=== PATIENT | female | born 1985 | race Caucasian/White ===

== ENCOUNTER 2021-05-21 04:38 | Emergency (ER) | payer OTHER, SELFPAY ==
[2021-05-21 04:48] VITALS: BP 109/73; PULSE 78; RESP 16; TEMP 36.4; O2SAT 98; BMI 29.0
--- NOTE | 2021-05-21 05:25 | ED.URI ---
HPI - URI/Sore Throat General Chief Complaint: General Medical Stated Complaint: Sore throat Time Seen by Provider: 05/21/21 04:55 Source: patient Mode of arrival: ambulatory Limitations: no limitations History of Present Illness MD elicited complaint: cough, sore throat and other (body aches) Onset (ago): day(s) (2) Consistency: constant Severity: moderate Description of mucous: clear Able to tolerate fluids by mouth: Yes Exacerbating factors: swallowing and other (movements) Relieving factors: nothing Associated symptoms: chills, myalgias, sore throat and cough Treatments prior to arrival: cold medicine Related Data Previous Rx's Medication Instructions Recorded amoxicillin 500 mg capsule 500 mg PO BID #14 cap 05/21/21 cyclobenzaprine 10 mg tablet 10 mg PO TID PRN #14 tab 05/21/21 ibuprofen 600 mg tablet 600 mg PO Q6H PRN #30 tab 05/21/21 Allergies Allergy/AdvReac Type Severity Reaction Status Date / Time No Known Allergies Allergy Verified 05/21/21 06:05 Review of Systems Review of Systems: Constitutional : no Fever, no Chills, positive fatigue, positive Malaise ENT/Mouth : positive sore throat, no runny nose Eyes: No Discharge Cardiovascular : No Chest Pain, No SOB Respiratory : pos Cough, No Sputum Gastrointestinal : No Nausea, No Vomiting, No Diarrhea Genitourinary : No Dysuria, No Urinary Frequency Musculoskeletal : positive Myalgia Skin : No rash Neuro : No Headache [facility] Past Medical History Medical History (Updated 05/21/21 @ 06:05 by Atiya Nichole DO) No known health problems Social History Social History Advance Directives: No Advance Directives Information Provided: No Patient : No Physical Exam Vital Signs: Vital Signs: Last Vital Signs Temp 97.6 F 05/21/21 04:48 Pulse 78 05/21/21 04:48 Resp 16 05/21/21 04:48 BP 109/73 05/21/21 04:48 Pulse Ox 98 05/21/21 04:48 Body Mass Index 29.0 Appearance: Alert. Oriented X3. No acute distress. Eyes: Pupils equal, round and reactive to light. ENT: Pharynx moderate generalized erythema scant patches Neck: no meningeal signs has R sided trapezius spasm CVS: Normal heart rate and rhythm. Pulses normal. Respiratory: No respiratory distress. Breath sounds normal. Abdomen: Soft and non-tender. Skin: Skin warm and dry. Normal skin color. Normal skin turgor. Extremities: No lower extremity edema. No calf ttp Neuro: Oriented X 3. No motor deficit. No sensory deficit. RUE and RLE NV intact - 5/5 strength throughout Course Course Course Narrative: negative covid and strep will treat as tonsillitis and instruct repeat COVID test in 2 days MDM - URI/Sore Throat MDM Narrative Medical decision making narrative: 35 yo female with sore throat, body aches affecting predominantly the right side of her body, chills - she is not vaccinated at this time will need COVID swab/strep swab - dispo per results and findings. Not toxic, stable VS - no resp distress overall looks well Lab Data Labs: Lab Results 05/21/21 05/21/21 Range/Units 05:36 05:36 COVID-19 (DAYNA) Negative (Negative) COVID-19 Clin Com See Note S. pyogenes GrpA HANNAH Negative (Negative) Discharge Plan Discharge Clinical Impression: Acute infective tonsillitis Qualifiers: Pharyngitis/tonsillitis etiology: unspecified etiology Qualified Code(s): J03.90 - Acute tonsillitis, unspecified Patient Disposition: Home, Self-Care Instructions: Tonsillitis (ED) Additional Instructions: return to ED for any worsening symptoms or concerns STREP AND COVID NEGATIVE REPEAT COVID TEST IN 2 DAYS Prescriptions: New amoxicillin 500 mg capsule 500 mg PO BID Qty: 14 RF: 0 cyclobenzaprine 10 mg tablet 10 mg PO TID PRN (Reason: muscle spasm) Qty: 14 RF: 0 ibuprofen 600 mg tablet 600 mg PO Q6H PRN (Reason: pain) Qty: 30 RF: 0
[2021-05-21 05:50] LABS: IDNOW Serial# 08D9AD1C; Strep A Nucleic Acid Negative (Negative)
[2021-05-21 05:56] LABS: COVID-19 Test Negative (Negative)
== END 2021-05-21 06:42 | disposition home or self-care (01) ==
PROVIDERS: Emergency Provider Emergency Medicine
DX: J03.90 Acute tonsillitis, unspecified (principal); R05.9 Cough, unspecified; M79.10 Myalgia, unspecified site; Z20.822 Contact with and (suspected) exposure to COVID-19
CPT/HCPCS: 36415; 87635; 87651; 99283

== ENCOUNTER 2022-03-24 19:29 | Emergency (ER) | payer OTHER, SELFPAY ==
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
[2022-03-24 21:21] VITALS: BP 126/69; PULSE 71; RESP 18; O2SAT 99; BMI 31.8
[2022-03-24] MEDS: Ketorolac Tromethamine 60 MG/2 ML VIAL IM (22:31)
--- NOTE | 2022-03-24 22:35 | PC.NURSE ---
Pt a&o, no sob or chest pain. Medicated per Sep.
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
== END 2022-03-24 23:50 | disposition home or self-care (01) ==
PROVIDERS: Emergency Provider Emergency Medicine
DX: S83.92XA Sprain of unspecified site of left knee, initial encounter (principal); V28.0XXA Motorcycle driver injured in noncollision transport accident in nontraffic accident, initial encounter; Y93.89 Activity, other specified; Y92.414 Local residential or business street as the place of occurrence of the external cause; Y99.9 Unspecified external cause status
CPT/HCPCS: 73564; 96372; 99283; 99284; J1885

== ENCOUNTER 2022-05-25 21:40 | Emergency (ER) | payer OTHER, SELFPAY ==
[2022-05-25 22:17] VITALS: BP 121/73; PULSE 69; RESP 15; TEMP 36.7; O2SAT 100; BMI 30.1
== END 2022-05-26 00:54 | disposition left against medical advice (07) ==
PROVIDERS: Emergency Provider Emergency Medicine
DX: M62.838 Other muscle spasm (principal)
CPT/HCPCS: 99281

== ENCOUNTER 2022-09-08 00:19 | Emergency (ER) | payer OTHER, SELFPAY ==
[2022-09-08 00:54] VITALS: BP 107/68; PULSE 76; RESP 18; TEMP 36.6; O2SAT 99; BMI 30.9
[2022-09-08 00:57] VITALS: BP 107/68; PULSE 76; RESP 18; TEMP 36.6; O2SAT 99
[2022-09-08 01:41] LABS: MANUAL DIFF FLAG NO
[2022-09-08 01:43] LABS: Basophils Percent Auto 0.2 % (0-2); Eosinophils Absolute Auto 0.1 X10*3/uL (0.0-0.4); Eosinophils Percent Auto 1.8 % (0-4); Hematocrit 31.2 % (37.0-47.0); Hemoglobin 10.7 g/dl (12.0-16.0); Imm Gran Abs Auto 0.01 X10*3/uL (0.00-0.03); Imm Gran Pct Auto 0.2 % (0.0-0.4); Lymphocytes Percent Auto 30.7 % (20-40); Mean Corpuscular HGB Conc 34.3 g/dl (31.0-35.0); Mean Corpuscular Hemoglobin 30.2 pg (27.0-33.0); Mean Corpuscular Volume 88.1 fL (80.0-98.0); Mean Platelet Volume 10.1 fL (9.4-12.3); Monocytes Absolute Auto 0.8 X10*3/uL (0.1-1.2); Monocytes Percent Auto 11.5 % (2-11); Neutrophils Absolute Auto 3.7 x10*3/uL (2.0-8.3); Neutrophils Percent Auto 55.6 % (45-73); Platelet Count 283 X10*3/uL (160-400); Red Blood Count 3.54 X10*6/uL (4.20-5.50); Red Cell Distribution Width 12.7 % (11.0-16.0); White Blood Count 6.6 X10*3/uL (4.8-10.8)
[2022-09-08 01:49] LABS: Appearance Urine Cloudy; Color Urine Yellow; Glucose Urine UA Negative (Negative); Leukocyte Esterase Urine Small (1+) (Negative); Nitrite Urine Negative (Negative); Specific Gravity - Urine >= 1.030 (1.005-1.025); UMIC TRIGGER UACC YES; Urine Blood Negative (Negative); Urine Ketones Negative (Negative); Urine Protein Trace mg/dL (Neg-Trace)
[2022-09-08 01:51] LABS: UPreg QC Valid YES; Urine Pregnancy NEGATIVE (NEGATIVE)
[2022-09-08 01:54] LABS: Bacteria Urine 4+ (None Seen); Hyaline Casts Urine 0-2 /LPF (0-2); RBC Urine 0-2 /HPF (0-2); UACC Culture Trigger YES; WBC Urine 21-50 /HPF (0-5)
[2022-09-08 02:09] LABS: Alanine Aminotransferase 11 U/L (0-31); Albumin Level 3.4 g/dL (3.5-5.0); Alkaline Phosphatase 73 U/L (39-117); Anion Gap 9 (12-20); Aspartate Amino Transferase 18 U/L (5-31); Bilirubin Total 0.3 mg/dL (0.0-1.0); Blood Urea Nitrogen 13 mg/dL (9-16); Calcium 8.3 mg/dL (8.4-10.2); Carbon Dioxide 26 mmol/L (22-29); Chloride 108 mmol/L (96-108); Creatinine Clr Calc Pharmacy 104.2; Estimated Glomerular Filt Rate > 60; Glucose Random 93 mg/dL (60-115); Potassium 4.3 mmol/L (3.3-5.1); Sodium 139 mmol/L (135-145)
--- NOTE | 2022-09-08 02:22 | ED.ABDPAIN ---
HPI - Abdominal Pain General Chief Complaint: Abdominal Pain Stated Complaint: abd pain Time Seen by Provider: 09/08/22 00:56 Source: patient Mode of arrival: ambulatory History of Present Illness HPI narrative: 36-year-old female who presents with right upper quadrant abdominal discomfort and states that this is been often on occurring and she denies any prior imaging studies and endorses evaluations of both [facility] as well as [facility] previously. She states they just give her pain medication and discharged her. She denies any associated fever, chills, nausea, vomiting and states that she has continued to pass flatus and have bowel movements. She denies any urinary pain/burning/frequency. Related Data Previous Rx's Medication Instructions Recorded amoxicillin 500 mg capsule 500 mg PO BID #14 caps 05/21/21 cyclobenzaprine 10 mg tablet 10 mg PO TID PRN muscle spasm #14 05/21/21 tabs ibuprofen 600 mg tablet 600 mg PO Q6H PRN pain #30 tabs 05/21/21 cyclobenzaprine 10 mg tablet 10 mg PO TID PRN muscle spasm #14 03/24/22 tabs ibuprofen 600 mg tablet 600 mg PO Q6H PRN pain #20 tabs 03/24/22 cefdinir 300 mg capsule 300 mg PO BID 7 days #14 caps 09/08/22 Allergies Allergy/AdvReac Type Severity Reaction Status Date / Time No Known Allergies Allergy Verified 05/21/21 06:05 Review of Systems Review of Systems Pertinent positives and negatives as stated in HPI PMFSH Past Medical History Source: nursing notes reviewed Medical History No known health problems Social History Social History Smoked in Last 30 Days: No Use of substances other than those prescribed or required for medical reasons: No Advance Directives: No Advance Directives Information Provided: Yes Patient : No Physical Exam ED Vital Signs: Vital Signs - 24 hr 09/08/22 00:54 09/08/22 00:57 Temperature 97.9 F 97.9 F Pulse Rate 76 76 Respiratory Rate 18 18 Blood Pressure 107/68 107/68 Pulse Oximetry 99 99 Oxygen Delivery Method Room Air Room Air BMI result Body Mass Index 30.9 VITAL SIGNS: Reviewed. GENERAL: Well developed, well nourished, in no acute distress. HEAD: Normocephalic/atraumatic EYES: PERRLA, EOMI LUNGS: Normal breath sounds. No adventitious sounds or accessory muscle use. SpO2<99> CARDIOVASCULAR: Regular rate and rhythm without noted murmurs ABDOMEN: Soft, minimal right upper quadrant discomfort, Aldrich's negative, non-distended with bowel sounds, CVA tenderness MUSCULOSKELETAL: No tenderness, deformities, or effusions noted on gross inspection. EXTREMITIES: No cyanosis, clubbing or edema. SKIN: Inspection of the skin reveals no rashes, NEUROLOGIC: Alert and oriented x 4. Strength and sensation to light touch were grossly intact x 4. Medical Decision Making Medical Decision Making [facility] Narrative: 36-year-old female with history and clinical presentation and on review of all investigations my interpretation is that this patient has a pyelonephritis, there is no evidence to further support a cholecystitis, pancreatitis. Patient received initial antibiotics here. She is otherwise discharged home in stable condition Differential Diagnosis Differential Diagnoses: The differential diagnosis associated with the presentation includes Please see the discussion above Lab Data [facility] Lab Attestation statement: I reviewed the patient's lab results. Please see the discussion above 09/08/22 01:35 09/08/22 01:35 Labs: Lab Results 09/08/22 09/08/22 09/08/22 Range/Units 01:35 01:35 01:41 WBC 6.6 (4.8-10.8) X10*3/uL RBC 3.54 L (4.20-5.50) X10*6/uL Hgb 10.7 L (12.0-16.0) g/dl Hct 31.2 L (37.0-47.0) % MCV 88.1 (80.0-98.0) fL MCH 30.2 (27.0-33.0) pg MCHC 34.3 (31.0-35.0) g/dl RDW 12.7 (11.0-16.0) % Plt Count 283 (160-400) X10*3/uL MPV 10.1 (9.4-12.3) fL Immature Gran % (Auto) 0.2 (0.0-0.4) % Neut % (Auto) 55.6 (45-73) % Lymph % (Auto) 30.7 (20-40) % Labette % (Auto) 11.5 H (2-11) % Eos % (Auto) 1.8 (0-4) % Baso % (Auto) 0.2 (0-2) % Lymph # (Auto) 2.0 (1.2-4.9) X10*3/uL Labette # (Auto) 0.8 (0.1-1.2) X10*3/uL Eos # (Auto) 0.1 (0.0-0.4) X10*3/uL Baso # (Auto) 0.0 (0.0-0.2) X10*3/uL Abs Immat Gran (auto) 0.01 (0.00-0.03) X10*3/uL Absolute Neuts (auto) 3.7 (2.0-8.3) x10*3/uL Absolute Nucleated RBC 0.000 (0.0-0.012) X10*3/uL Nucleated RBC % (auto) 0.0 (0.0-0.2) /100WBC Sodium 139 (135-145) mmol/L Potassium 4.3 (3.3-5.1) mmol/L Chloride 108 (96-108) mmol/L Carbon Dioxide 26 (22-29) mmol/L Anion Gap 9 L (12-20) BUN 13 (9-16) mg/dL Creatinine 0.73 (0.5-1.4) mg/dL Estim Creat Clear Calc 104.2 Estimated GFR > 60 Random Glucose 93 (60-115) mg/dL Calcium 8.3 L (8.4-10.2) mg/dL Total Bilirubin 0.3 (0.0-1.0) mg/dL AST 18 (5-31) U/L ALT 11 (0-31) U/L Alkaline Phosphatase 73 (39-117) U/L Total Protein 6.0 L (6.5-8.0) g/dL Albumin 3.4 L (3.5-5.0) g/dL Urine Color Yellow Urine Appearance Cloudy Urine pH 5.0 (5.0-9.0) Ur Specific Kelly >= 1.030 H (1.005-1.025) Urine Protein Trace (Neg-Trace) mg/dL Urine Glucose (UA) Negative (Negative) mg/dL Urine Ketones Negative (Negative) mg/dL Urine Blood Negative (Negative) Urine Nitrite Negative (Negative) Ur Leukocyte Esterase Small (1+) H (Negative) Urine RBC 0-2 (0-2) /HPF Urine WBC 21-50 H (0-5) /HPF Ur Squamous Epith Cells 6-10 (0-2) /HPF Urine Bacteria 4+ (None Seen) Hyaline Casts 0-2 (0-2) /LPF Urine Test (NEGATIVE) 09/08/22 Range/Units 01:41 WBC (4.8-10.8) X10*3/uL RBC (4.20-5.50) X10*6/uL Hgb (12.0-16.0) g/dl Hct (37.0-47.0) % MCV (80.0-98.0) fL MCH (27.0-33.0) pg MCHC (31.0-35.0) g/dl RDW (11.0-16.0) % Plt Count (160-400) X10*3/uL MPV (9.4-12.3) fL Immature Gran % (Auto) (0.0-0.4) % Neut % (Auto) (45-73) % Lymph % (Auto) (20-40) % Labette % (Auto) (2-11) % Eos % (Auto) (0-4) % Baso % (Auto) (0-2) % Lymph # (Auto) (1.2-4.9) X10*3/uL Labette # (Auto) (0.1-1.2) X10*3/uL Eos # (Auto) (0.0-0.4) X10*3/uL Baso # (Auto) (0.0-0.2) X10*3/uL Abs Immat Gran (auto) (0.00-0.03) X10*3/uL Absolute Neuts (auto) (2.0-8.3) x10*3/uL Absolute Nucleated RBC (0.0-0.012) X10*3/uL Nucleated RBC % (auto) (0.0-0.2) /100WBC Sodium (135-145) mmol/L Potassium (3.3-5.1) mmol/L Chloride (96-108) mmol/L Carbon Dioxide (22-29) mmol/L Anion Gap (12-20) BUN (9-16) mg/dL Creatinine (0.5-1.4) mg/dL Estim Creat Clear Calc Estimated GFR Random Glucose (60-115) mg/dL Calcium (8.4-10.2) mg/dL Total Bilirubin (0.0-1.0) mg/dL AST (5-31) U/L ALT (0-31) U/L Alkaline Phosphatase (39-117) U/L Total Protein (6.5-8.0) g/dL Albumin (3.5-5.0) g/dL Urine Color Urine Appearance Urine pH (5.0-9.0) Ur Specific Kelly (1.005-1.025) Urine Protein (Neg-Trace) mg/dL Urine Glucose (UA) (Negative) mg/dL Urine Ketones (Negative) mg/dL Urine Blood (Negative) Urine Nitrite (Negative) Ur Leukocyte Esterase (Negative) Urine RBC (0-2) /HPF Urine WBC (0-5) /HPF Ur Squamous Epith Cells (0-2) /HPF Urine Bacteria (None Seen) Hyaline Casts (0-2) /LPF Urine Test NEGATIVE (NEGATIVE) Discharge Plan Discharge Clinical Impression: Pyelonephritis Patient Disposition: Home, Self-Care Instructions: Kidney Infection (ED) Additional Instructions: 1. Complete the entire course of antibiotics. Please increase amount of water that you drink and utilize ishi-[id number] Tylenol/ibuprofen as needed for pain control. 2. Follow-up with your primary care provider by calling the office in the morning and setting up an appointment for re-evaluation further outpatient management. Return to the ER for worsening symptoms. Prescriptions: New cefdinir 300 mg capsule 300 mg PO BID 7 Days Qty: 14 0RF No Action amoxicillin 500 mg capsule 500 mg PO BID Qty: 14 0RF cyclobenzaprine 10 mg tablet 10 mg PO TID PRN (Reason: muscle spasm) Qty: 14 0RF ibuprofen 600 mg tablet 600 mg PO Q6H PRN (Reason: pain) Qty: 30 0RF cyclobenzaprine 10 mg tablet 10 mg PO TID PRN (Reason: muscle spasm) Qty: 14 0RF ibuprofen 600 mg tablet 600 mg PO Q6H PRN (Reason: pain) Qty: 20 0RF
[2022-09-08] MEDS: Amoxicillin/Potassium Clav 875 MG TABLET PO (02:50)
[2022-09-08] MEDS: Acetaminophen 325 MG TABLET 975 MG PO (02:50)
[2022-09-08] MEDS: Ibuprofen 400 MG TABLET PO (02:50)
== END 2022-09-08 02:53 | disposition home or self-care (01) ==
PROVIDERS: Emergency Provider Student in an Organized Health Care Education/Training Program
DX: N12 Tubulo-interstitial nephritis, not specified as acute or chronic (principal); B96.20 Unspecified Escherichia coli [E. coli] as the cause of diseases classified elsewhere; R10.11 Right upper quadrant pain; Z79.899 Other long term (current) drug therapy
CPT/HCPCS: 36415; 80053; 81001; 81025; 85025; 87086; 87088; 87186; 99283; 99284

== ENCOUNTER 2023-01-21 21:29 | Emergency (ER) | payer OTHER, SELFPAY ==
[2023-01-21 21:55] VITALS: BP 127/64; PULSE 72; RESP 18; TEMP 36.9; O2SAT 98; BMI 37.6
[2023-01-21 22:26] LABS: MANUAL DIFF FLAG NO
[2023-01-21 22:29] LABS: Basophils Percent Auto 0.3 % (0-2); Eosinophils Absolute Auto 0.1 X10*3/uL (0.0-0.4); Eosinophils Percent Auto 1.2 % (0-4); Hematocrit 34.4 % (37.0-47.0); Hemoglobin 11.4 g/dl (12.0-16.0); Imm Gran Abs Auto 0.01 X10*3/uL (0.00-0.03); Imm Gran Pct Auto 0.1 % (0.0-0.4); Lymphocytes Absolute Auto 2.4 X10*3/uL (1.2-4.9); Lymphocytes Percent Auto 27.6 % (20-40); Mean Corpuscular HGB Conc 33.1 g/dl (31.0-35.0); Mean Corpuscular Hemoglobin 29.4 pg (27.0-33.0); Mean Corpuscular Volume 88.7 fL (80.0-98.0); Mean Platelet Volume 10.6 fL (9.4-12.3); Monocytes Absolute Auto 0.5 X10*3/uL (0.1-1.2); Monocytes Percent Auto 6.2 % (2-11); Neutrophils Absolute Auto 5.6 x10*3/uL (2.0-8.3); Neutrophils Percent Auto 64.6 % (45-73); Platelet Count 283 X10*3/uL (160-400); Red Blood Count 3.88 X10*6/uL (4.20-5.50); Red Cell Distribution Width 12.5 % (11.0-16.0); White Blood Count 8.7 X10*3/uL (4.8-10.8)
[2023-01-21 22:31] LABS: Appearance Urine Clear; Color Urine Yellow; Glucose Urine UA Negative (Negative); Leukocyte Esterase Urine Negative (Negative); Nitrite Urine Negative (Negative); PH 5.5 (5.0-9.0); Specific Gravity - Urine >= 1.030 (1.005-1.025); UPreg QC Valid YES; Urine Blood Negative (Negative); Urine Ketones Negative (Negative); Urine Pregnancy NEGATIVE (NEGATIVE); Urine Protein Negative (Neg-Trace)
[2023-01-21 22:47] LABS: Alanine Aminotransferase 13 U/L (0-31); Albumin Level 3.7 g/dL (3.5-5.0); Alkaline Phosphatase 81 U/L (39-117); Anion Gap 9 (12-20); Aspartate Amino Transferase 15 U/L (5-31); Bilirubin Direct 0.1 mg/dL (0.0-0.5); Bilirubin Total 0.3 mg/dL (0.0-1.0); Blood Urea Nitrogen 16 mg/dL (9-16); Calcium 8.7 mg/dL (8.4-10.2); Carbon Dioxide 25 mmol/L (22-29); Chloride 108 mmol/L (96-108); Creatinine Clr Calc Pharmacy 111.3; Estimated Glomerular Filt Rate > 60; Glucose Random 112 mg/dL (60-115); Lipase 11 U/L (8-78); Potassium 3.8 mmol/L (3.3-5.1); Sodium 138 mmol/L (135-145); Total Protein 6.9 g/dL (6.5-8.0)
== END 2023-01-22 00:58 | disposition left against medical advice (07) ==
LOC: HO.ED 01-22 00:42
PROVIDERS: Emergency Provider Emergency Medicine
DX: R10.2 Pelvic and perineal pain (principal); Z79.899 Other long term (current) drug therapy
CPT/HCPCS: 36415; 80048; 80076; 81003; 81025; 83690; 85025; 99282; 99283

== ENCOUNTER → 2023-04-30 13:10 | Outpatient (BNVA) | payer OTHER, SELFPAY | PROVIDERS: Visit Provider Physician Assistant Surgical ==

== ENCOUNTER 2023-07-11 01:29 | Emergency (ER) | payer OTHER, SELFPAY ==
[2023-07-11 01:30] VITALS: BP 134/81; PULSE 95; RESP 18; TEMP 36.7; O2SAT 98; BMI 35.4
--- NOTE | 2023-07-11 01:42 | MHC.EDTECH ---
Patient came in to triage area,labs were obtained and sent to lab. Attempted to get a urine,patient was unable to give sample at this itme.
[2023-07-11 01:46] LABS: MANUAL DIFF FLAG NO
[2023-07-11 01:47] LABS: Basophils Percent Auto 0.2 % (0-2); Eosinophils Absolute Auto 0.1 X10*3/uL (0.0-0.4); Eosinophils Percent Auto 0.7 % (0-4); Hematocrit 35.8 % (37.0-47.0); Hemoglobin 12.2 g/dl (12.0-16.0); Imm Gran Abs Auto 0.03 X10*3/uL (0.00-0.03); Imm Gran Pct Auto 0.4 % (0.0-0.4); Lymphocytes Absolute Auto 2.7 X10*3/uL (1.2-4.9); Lymphocytes Percent Auto 32.3 % (20-40); Mean Corpuscular HGB Conc 34.1 g/dl (31.0-35.0); Mean Corpuscular Hemoglobin 29.4 pg (27.0-33.0); Mean Corpuscular Volume 86.3 fL (80.0-98.0); Monocytes Absolute Auto 0.5 X10*3/uL (0.1-1.2); Monocytes Percent Auto 6.3 % (2-11); Neutrophils Percent Auto 60.1 % (45-73); Platelet Count 312 X10*3/uL (160-400); Red Blood Count 4.15 X10*6/uL (4.20-5.50); White Blood Count 8.3 X10*3/uL (4.8-10.8)
[2023-07-11 02:03] LABS: Alanine Aminotransferase 43 U/L (0-31); Albumin Level 4.2 g/dL (3.5-5.0); Alkaline Phosphatase 92 U/L (39-117); Anion Gap 12 (12-20); Aspartate Amino Transferase 107 U/L (5-31); Bilirubin Total 0.3 mg/dL (0.0-1.0); Blood Urea Nitrogen 10 mg/dL (9-16); Calcium 9.7 mg/dL (8.4-10.2); Carbon Dioxide 27 mmol/L (22-29); Chloride 104 mmol/L (96-108); Creatinine Clr Calc Pharmacy 106.3; Estimated Glomerular Filt Rate > 60; Glucose Random 95 mg/dL (60-115); Potassium 3.4 mmol/L (3.3-5.1); Sodium 140 mmol/L (135-145); Total Protein 7.8 g/dL (6.5-8.0)
== END 2023-07-11 03:10 | disposition left against medical advice (07) ==
PROVIDERS: Emergency Provider Emergency Medicine
DX: R10.9 Unspecified abdominal pain (principal); Z79.899 Other long term (current) drug therapy
CPT/HCPCS: 36415; 80053; 85025; 99281; 99283

== ENCOUNTER 2025-03-15 09:48 | Outpatient (AMB) | payer OTHER, SELFPAY ==
--- OUTSIDE RECORDS SUMMARY | 2025-03-15 09:51 | XMS_ITS | Clinical Summary ---
Author Organization [facility] Address [address] [address] Phone Care Team Providers Care Hvac Designer Name Role Phone Unavailable Primary Care Provider Unavailabl e Immunizations Immunization Administration Dates Next Due Hepatitis B Adult 09/13/2024,08/12/2011,06/17/20 11 MMR 09/13/2024 Tdap 02/29/2016 Social History Tobacco Use Types Packs/Day Years Used Date Smoking Tobacco: Never Assessed Education Answer Date Recorded Are you interested in more education? Not on benito e 09/09/2024 Are you concerned about learning? Not on file 09/09/2024 No 09/09/2024 No 09/09/2024 Digital Access Answer Date Recorded No 09/09/2024 No 09/09/2024 Reliable internet access at home? Not on file 09/09/2024 Device with a working camera? Not on file Comments Unknown Sex and Gender Information Value Date Recorded Sex Assigned at Not on file Legal Sex Female 10:40 AM EST Gender Identity Not on file Sexual Orientation Not on file Plan of Treatment Health Maintenance Due Date Last Done Comments DEPRESSION SCREENING 1995 SMOKING Hx and SMOKELESS TOB ACCO SCREENING 12/18/1996 HEPATITIS C SCREENING 12/18/2001 HIV ONE-TIME SCREENING (18-6 5 YEARS) 12/18/2001 PAP SMEAR 12/18/2004 MAMMOGRAM 2023 COVID-19 VACCINE (2023-2 5 season) 2024 Adult Td,Tdap Booster 02/28/2026 02/29/2016 HEPATITIS A VACCINES Aged Out No long er eligible based on patient's age to complete this topic HIB VACCINES Aged Out No longer eligi ble based on patient's age to complete this topic MENINGOCOCCAL VACCINES (ACWY) Aged Out No longer eligible based on patient's age to complete this topic MENINGOCOCCAL VACCINES (B) Aged Out N o longer eligible based on patient's age to complete this topic PNEUMOCOCCAL VACCINES (0-49 years) Aged Out No longer eligible based on patient's age to complete this topic Medical Devices Not on file Additional Source Comments The information contained in this document represents components of the legal health record. It is not the complete legal health record.[facility]
--- OUTSIDE RECORDS SUMMARY | 2025-03-15 09:52 | XMS_ITS | Patient Health Record ---
Author Organization [facility] Address [address] [id number] Support Name Relationship Address Phone Katarina Rodriguez Guarantor Unknown [phone] Allergies No Known Allergies Reason For Referral No Information Medications Medication SIG (Take, Route, Frequency, Duration) Notes Start Date End Date Status Levonorgestrel 1.5 MG Tablet as directed Orally Not-Takin g/PRN Social History Sex Assigned At : Social History Observation Description Sex Assigned At Female Social History HIV Risk Assessment Social Info Question Answer Notes Additional Questions Is an HIV Risk Assessment being c onducted? Yes Have you been tested for HIV before? Yes Do you have an unlicensed body piercing or tattoo? Yes Reproductive Life Plan: Social Info Question Answer Notes Reproductive Life Plan: Do you want to have children? Yes How long would you like to wait until you/your partner becomes ? 1 - 5 years How sure are you that you will be able to use your control method without any problems? Very sure Human Trafficking: Social Info Question Answer Notes Human Trafficking Experienced: No Sexual History: Social Info Question Answer Notes Sexual History: Sexual History Reviewed: Partner s, Practices, Protection/Past STIs, Prevention of Currently sexually active? Yes Sexually active with: Men Number of male partners 1 Your sexual activities include: oral intercourse, vaginal intercourse Do you use condoms? No Date of last unprotected intercourse: 09/18/2023 Number of partners in past 3 months: 2 Number of partners in past year: 2 What is the client's primary method to prevent at the end of their visit? Withdrawal Does your partner(s) currently have any STIs? No Counseling Provided: Social Info Question Answer Notes Counseling Provided Please indicate the length of time, in minutes, that counseling was provided. 6 Counseling Was Provided By: elisabeth Drugs/Alcohol: Social Info Question Answer Notes Drug/Alcohol Use Do you or have you used drugs? No Do you or have you used alcohol? Yes, currently socially Food Access: Social Info Question Answer Notes Food Access The Client's current access to food is Secure Food Access Relationships: Social Info Question Answer Notes Relationships Has the client exper ienced any of the following: Client has never experienced harmful relationships Housing Social Info Question Answer Notes Housing The client's current living situation is: stable housing Tobacco Use: Social Info Question Answer Notes Tobacco Use: Do you/have you used tobacco? No Plan Of Treatment No Information Insurance Providers Payer Name Payer Address Payer Phone Subscriber Number Group Number Insured Name Patient Relationship to Insured Coverage Start Date Coverage End Date [place] [address] [place] [id number] Katarina Rodriguez Self - patient is the insured Medications Administered Medication Instructions Date of Administration Dosage Notes Depo 150mg 04/11/2022 Medical (General) History Surgical History Surgery Date(Month/Year) gastric sleeve 2020 Hospitalization History Reason Date(Month/Year) childbirth
--- OUTSIDE RECORDS SUMMARY | 2025-03-15 09:52 | XMS_ITS | Clinical Summary ---
Author Organization [facility] Address [address] [place] [address] Phone Care Team Providers Care Car Rental Deliverer Name Role Phone Rosi Coelho MD Primary Care Pr ovider Allergies No known active allergies Medications ferrous sulfate 325 mg (65 mg elemental iron) tabletIndication s:Iron deficiency anemia, unspecified iron deficiency anemia type Take 1 tablet (325 mg total) by mouth 2 (two) times a day before meals. 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 Will update CBC and iron studies Orders: CBC and differential; Future Iron and TIBC; Future Ferritin; Future Hemoglobin electrophoresis; Future Morbid obesity with BMI of 4 0.0-44.9, adult (CMS/HCC V24, CMS/HCC V28) 12/12/2024 Assessment & Plan (12/12/2024 1:33 PM EDT): She is interested in weight loss medication. Counseled on the possible side effects of the medication. She will find out what type of thyroid cancer her paternal aunt had. 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 Labs drawn today at [facility] Assessment & Plan (12/12/2024 1:33 PM EDT): Continue levothyroxine 25 mcg daily. Pending repeat TSH Orders: Thyroid stimulating hormone with reflex to free t4 and free t3; Future Assessment & Plan (08/26/2024 8:01 AM EST): Unclear if she received levothyroxine/what dose she received. Will update TSH and thyroid peroxidase. Further recommendations pending results Orders: Thyroid stimulating hormone with reflex to free t4 and free t3; Future Thyroid peroxidase antibody; Future Resolved Problems Problem Noted Date Diagnosed Date Resolved Date GBS (group B Streptococcus c arrier), +RV culture, currently 06/06/2024 09/09/2024 Overview (06/06/2024): No Known allergies Rx PCN in la AMA (advanced maternal age) multigravida 35+ 09/09/2024 Overview (06/06/2024): ASA 162 mg daily at 12w through delivery Referral for NIPT if desired Detailed US 3rd trimester growth US if maternal age 40 or greater Weekly NST at 36 weeks Offer delivery at 39 weeks if maternal age 40 or greater Anemia, antepartum, third trimester 06/06/2024 12/12/2024 Overview (06/06/2024): Lab Results Component Value Date HGB 9.6 02/25/2024 HGB 12.4 10/22/2023 02/25/2024 start iron bid Elevated glucose tolerance test 06/06/2024 09/09/2024 Overview (06/06/2024): Preg @38w5d, one hr gtt 144 Assessment & Plan (08/26/2024 8:01 AM EST): Noted during . Will check A1c and lipid panel Orders: Lipid panel with reflex to direct LDL; Future Hemoglobin A1c; Future Maternal obesity, antepartum 06/06/2024 09/09/2024 Overview (06/06/2024): BMI 37.76 - hx gastric sleeve 2019. Pt will call surgeon prior to completing early 1 hr gtt HgbA1C and 1 hour GTT at initial labs ASA 162mg at 12 weeks until delivery Detailed anatomy ultrasound Repeat GTT 24-28 weeks if early is normal Pre-preg BMI 35-39.9: NST weekly at 37 weeks Growth US at 32 and 36 weeks for BMI >40 BMI of 50 by 28wks transfer to [facility] DVT prophylaxis- Lovenox if CS and BMI >35 Delivery by section at 37-39 weeks of gestation due to labor 05/21/2024 05/21/2024 Delivery by section at 37-39 weeks of gestation due to labor 05/21/2024 09/09/2024 Assessment & Plan (05/21/2024 8:39 AM EST): S/p P C/S for FTD Doing well Meeting postop milestones OK to D/C home today Advanced maternal age in multigravida 05/18/2024 05/18/2024 Elevated glucose tolerance test 05/10/2024 05/21/2024 Overview (05/18/2024): Preg @ 38w5d, one hr gtt 144 Anemia, antepartum, third trimester 04/17/2024 05/21/2024 GBS (group B Streptococcus c arrier), +RV culture, currently 04/17/2024 05/21/2024 GBS (group B Streptococcus c arrier), +RV culture, currently 04/16/2024 05/18/2024 Overview (05/18/2024): No Known Allergies Rx PCN in la Anemia, antepartum, third trimester 02/25/2024 05/18/2024 Overview (05/18/2024): Lab Results Component Value Date HGB 9.6 02/25/2024 HGB 12.4 10/22/2023 02/25/2024 start iron bid Last Assessment & Plan: Cont iron bid and repeat h/h, late 3rd trimester E. coli UTI 10/24/2023 09/09/2024 E. coli UTI 10/24/2023 05/18/2024 Overview (05/18/2024): Repeat UC 02/25/2024 ____ persistnet UTI, cont abx prophylaxis Last Assessment & Plan: Completed abx, Repeat UC today AMA (advanced maternal age) multigravida 35+ 05/21/2024 Overview (04/17/2024): ASA 162 mg daily at 12w through delivery Referral for NIPT if desired Detailed US 3rd trimester growth US if maternal age 40 or greater Weekly NST at 36 weeks Offer delivery at 39 weeks if maternal age 40 or greater History of delivery, currently 10/22/2023 09/09/2024 Overview (04/17/2024): 2001 pt was given terbutaline x3 for labor. She had PPROM at 36w1d . MFM consult:11-11-23 at nuchal u/s Screening for risk of with vaginal ultrasounds to assess cervical length beginning at 16 weeks through 24 weeks if cervix shortens less than 2.5cm patient is candidate for cerclage and vaginal progesterone Hx of preeclampsia, prior pr egnancy, currently 10/22/2023 09/09/2024 Overview (04/17/2024): 2004 pt was induced for preeclampsia 36w5d Pt also has a hx of chronic htn which resolved after gastric sleeve MFM recommendation NSTs are recommended at 32 weeks if she requires antihypertensive medication. Delivery is recommended at 39 weeks for chronic hypertension or sooner if clinically indicated. Serial growth scans are recommended for this and likely for low growth restriction. Maternal obesity, antepartum 10/22/2023 05/21/2024 Overview (04/17/2024): BMI 37.76 - hx gastric sleeve 2020. Pt will call surgeon prior to completing early 1 hr gtt HgbA1C and 1 hour GTT at initial labs ASA 162mg at 12 weeks until delivery Detailed anatomy ultrasound Repeat GTT 24-28 weeks if early is normal Pre-preg BMI 35-39.9: NST weekly at 37 weeks Pre-preg BMI >40: NST weekly at 34 weeks Pre-preg BMI >45: NST weekly at 32 weeks Growth US at 32 and 36 weeks for BMI >40 BMI of 50 by 28wks transfer to [facility] DVT prophylaxis- Lovenox if CS and BMI >35 Supervision of high-risk 10/22/2023 09/09/2024 Overview (04/17/2024): 1. [facility] site: [address]) 2. Delivery site: [facility] 3. Mobile Mommas: 4. Dating criteria: 1st trimester ultrasound only 5. Blood type: Lab Results Component Value Date BLDTYPE O POSITIVE 10/22/2023 6. Genetic screening: Date: Result: Low risk female; Horizon screen negative' AFP screen negative 6. GBS: Date: 7. FOB name: Singh Blackwood [facility] [birth year], 8. Plans A. Epidural or other pain management - B. Labor support identified - C. Tdap - Date:, Flu - Date: D. Breast or Bottle feed: E. Baby's name - F. Circumcision - 9. Hospital Course: Hx of preeclampsia, prior pr egnancy, currently 10/22/2023 05/18/2024 Overview (05/18/2024): 2004 pt was induced for preeclampsia 36w5d Pt also has a hx of chronic htn which resolved after gastric sleeve MFM recommendation NSTs are recommended at 32 weeks if she requires antihypertensive medication. Delivery is recommended at 39 weeks for chronic hypertension or sooner if clinically indicated. Serial growth scans are recommended for this and likely for low growth restriction. Last Assessment & Plan: Normotensive, growth is adequate @ 72%tile on 03/29 Maternal obesity, antepartum 10/22/2023 05/18/2024 Overview (05/18/2024): BMI 37.76 - hx gastric sleeve 2019. Pt will call surgeon prior to completing early 1 hr gtt HgbA1C and 1 hour GTT at initial labs ASA 162mg at 12 weeks until delivery Detailed anatomy ultrasound Repeat GTT 24-28 weeks if early is normal Pre-preg BMI 35-39.9: NST weekly at 37 weeks Growth US at 32 and 36 weeks for BMI >40 BMI of 50 by 28wks transfer to [facility] DVT prophylaxis- Lovenox if CS and BMI >35 Supervision of high-risk 10/22/2023 05/18/2024 Overview (05/18/2024): 1. [facility] site: [address]) 2. Delivery site: [facility] 3. Mobile Mommas: 4. Dating criteria: 1st trimester ultrasound only 5. Blood type: Lab Results Component Value Date BLDTYPE O POSITIVE 10/22/2023 6. Genetic screening: Date: Result: Low risk female; Horizon screen negative' AFP screen negative 6. GBS: Date: 7. FOB name: Singh Blackwood [facility] [birth year], 8. Plans A. Epidural or other pain management - B. Labor support identified - C. Tdap - Date:, 02/25/2024 Flu - Date: D. Breast or Bottle feed: E. Baby's name - F. Circumcision - 9. Hospital Course: Hypothyroid 02/27/2015 05/18/2024 Overview (05/18/2024): Pt noncompliant with adult medicine and mgmt of thyroid. Labs drawn today at [facility] Lab Results Component Value Date TSH 6.03 02/25/2024 TSH 2.97 10/22/2023 TSH 12.26 04/21/2019 04/20/2024 Referral to endocrine. Make sure to determine if ALWAYS hypo or if was hyperthyroid and then hypothyroid from treatment- this will determine if we should check TRab and refer to Endo and MFM TRAb during the first trimester if elevated recheck at 18 to 22 and again at 30 to 34 weeks fetus needs monitoring by MFM with Q4 week growth as long as TRab elevated Initial Labs: TSH with reflex Two approaches for pre- meds: 1) TSH at diagnosis of and increase dose of levothyroxine if TSH >2.5 check TSH 4 weeks later 2) Double dose of levothyroxine two days per week, continue baseline dose other days TSH 4-6 weeks later, keep TSH< 2.5 Q trimester TSH with reflex once stable on meds Do not treat subclinical hypothyroid Do not test for thyroid disease in hyperemesis unless other overt signs of hyperthyroid exist Growth US at 32 weeks Return to pre- dose of levothyroxine while inpatient and provide 1 mo Rx with plan for follow with PCP Last Assessment & Plan: Consult with endocrine, start 50 mcg daily, she is archana for endocrine appt in 04/2024 Encounters Date Type Department Care Team Description 02/13/2025 1:17 PM EDT - 02/13/2025 11:59 PM EDT Hospital Encounter [facility] [address] [place] [phone] Anderson Edmonds MD Iron deficiency anemia due to chronic blood loss (Primary Dx) Discharge Disposition: Home or Self Care 02/01/2025 1:00 PM EDT - 02/01/2025 11:59 PM EDT Hospital Encounter [facility] [address] [place] [phone] Anderson Edmonds MD Iron deficiency anemia due to chronic blood loss (Primary Dx) Discharge Disposition: Home or Self Care 01/19/2025 3:30 PM EDT Office Visit [facility] Hematology Oncology [address] [place] [phone] Jillian Patiño PA Iron deficiency anemia due to chronic blood loss (Primary Dx); S/P gastric sleeve procedure; Menorrhagia with irregular cycle 12/16/2024 Telephone Adult Medicine [address] [phone] Rosi Coelho MD from Last 3 Months Immunizations Name Administration Dates Next Due Hepatitis B (Dijzdxc-L-Qkunz , Recombivax HB-Adult) 19yo and older 08/12/2011,06/17/2011 Influenza Quadravalent, MDCK , 0.5ml, preservative free (Flucelvax) 6mo and older 03/25/2018 Influenza trivalent, 0.5mL, preservative free (Fluarix; FluLaval; Fluzone) ages 6mo and older (Afluria) 3 years and older 04/14/2024 Influenza trivalent, with pr eservative (Fluzone; Afluria) 6mo and older 04/27/2012 Influenza, Unspecified 04/14/2024 Pneumococcal polysaccharide 23 valent (Pneumovax 23) 2yo and older 02/29/2016 Tdap Tetanus diptheria acell ular pertussis (Boostrix; Adacel) 7yo and older 02/25/2024,02/29/2016 Surgical History Surgery Date Site/Laterality Comments CHOLECYSTECTOMY 2002 PROCEDURE: HISTORICAL CHOLECYSTECTOMY OTHER SURGICAL HISTORY 01/2020 PROCEDURE: HISTORY OTHER; COMMENT: gastric sleeve SECTION, LOW TRANSVERSE Medical History Medical History Date Comments Hypothyroid 02/27/2015 DX:Hypothyroid CTS (carpal tunnel syndrome) 03/08/2015 DX: CTS (carpal tunnel syndrome); COMMENT: bilateral Morbid obesity (CMS/HCC V24, CMS/HCC V28) 10/22/2023 DX:Morbid obesity (HCC); COM MENT: bmi 37.76 Lab test positive for detect ion of COVID-19 virus 02/28/2021 DX:Lab test positive for det ection of COVID-19 virus; COMMENT: [facility] 02/21/21 Type 2 diabetes mellitus wit h neurological manifestations, uncontrolled 02/27/2015 DX:Type 2 diabetes mellitus with neurological manifestations, uncontrolled H. pylori infection 04/21/2019 DX:H. pylori infection HTN (hypertension), benign 02/27/2015 DX:HT N (hypertension), benign Hyperlipidemia with target L DL less than 100 02/27/2015 DX:Hyperlipidemia with targe t LDL less than 100; COMMENT: IMO update CTS (carpal tunnel syndrome) 03/08/2015 DX: CTS (carpal tunnel syndrome); COMMENT: bilateral AMA (advanced maternal age) multigravida 35+ 10/22/2023 ASA 162 mg daily at 12w thro ugh delivery Referral for NIPT if desired Detailed US 3rd trimester growth US if maternal age 40 or greater Weekly NST at 36 weeks Offer delivery at 39 weeks if maternal age 40 or greater GBS (group B Streptococcus c arrier), +RV culture, currently 04/17/2024 Maternal obesity, antepartum 10/22/2023 BMI 37.76 - hx gastric sleeve 2019. Pt will call surgeon prior to completing early 1 hr gtt HgbA1C and 1 hour GTT at initial labs ASA 162mg at 12 weeks until delivery Detailed anatomy ultrasound Repeat GTT 24-28 weeks if early is normal Pre-preg BMI 35-39.9: NST weekly at 37 weeks Pre-preg BMI >40: NST weekly at 34 weeks Pre-preg BMI >45: NST weekly at 32 weeks Delivery by section at 37-39 weeks of gestation due to labor 05/21/2024 E. coli UTI 10/24/2023 History of delivery, currently 10/22/20232001 pt was given terbutalin e x3 for labor. She had PPROM at 36w1d . MFM consult:11-11-23 at [facility]uchal u/s Screening for risk of with vaginal ultrasounds to assess cervical length beginning at 16 weeks through 24 weeks if cervix shortens less than 2.5cm patient is candidate for cerclage and vaginal progesterone Hx of preeclampsia, prior pr egnancy, currently 10/22/20232004 pt was induced for pree clampsia 36w5d Pt also has a hx of chronic htn which resolved after gastric sleeve MFM recommendation NSTs are recommended at 32 weeks if she requires antihypertensive medication. Delivery is recommended at 39 weeks for chronic hypertension or sooner if clinically indicated. Serial growth scans are recommended for this and likely for lo Supervision of high-risk 10/22/2023 1. [facility] site: [address]) 2. Delivery site: [facility] 3. Mobile Mommas: 4. Dating criteria: 1st trimester ultrasound only 5. Blood type: Lab Results Component Value Date BLDTYPE O POSITIVE 10/22/2023 6. Genetic screening: Date: Result: Low risk female; Horizon screen negative' AFP screen ne Elevated glucose tolerance test 06/06/2024 Preg @38w5d, one hr gtt 144 Family History Medical History Relation Name Comments Diabetes Aunt maternal aunt Stomach cancer Father Other: Other Maternal Grandfather alzhemi ers Breast cancer Maternal Grandmother Ramos bilate ral masectomy passed at 63 Diabetes Mother Annamarie hypertension Ovarian cancer Other 1 mat cousin Other: Other Other 2 autistm Hypertension Sister x4 Relation Name Status Comments Aunt Brother x1 Alive Father (Age 46) lung ca Maternal Grandfather Alive Maternal Grandmother Ramos Mother Annamarie (Age 42) hiv/aids, Htn, diabetes Other 1 mat cousin Alive Other 2 Alive Paternal Grandfather Paternal Grandmother Sister x4 Alive Social History Tobacco Use Types Packs/Day Years Used Date Smoking Tobacco: Never Smokeless Tobacco: Never Alcohol Use Standard Drinks/Week Comments Not Currently 0 (1 standard drink = 0.6 oz pur e alcohol) Housing Instability Answer Date Recorde d Are you worried that in the next 2 months you may not have stable housing? No 12/01/2024 Food Access & Nutrition Answer Date Rec orded Do you have access to a vari ety of food including fruits and vegetables? Yes 12/01/2024 Health Literacy Answer Date Recorded How often do you need to hav e someone help you when you read instructions, pamphlets, or other written material from your doctor or pharmacy? Never 12/01/2024 Caregiver: How often do you need to have someone help you when you read instructions, pamphlets, or other written material from your doctor or pharmacy? Not on file 12/01/2024 Financial Risk Answer Date Recorded How hard is it for you to pa y for the very basics like food, housing, medical care, and air conditioning / heating? Very hard 12/01/2024 Transportation Answer Date Recorded Has the lack of transportati on kept you from meetings, work, or from getting things needed for daily living? Yes Has the lack of transportati on kept you from medical appointments or from getting medications? Yes 12/01/2024 Social Isolation Answer Date Recorded How often do you feel lonely or isolated from th ose around you? Often 12/01/2024 Food Risk Answer Date Recorded Within the past 12 months we worried whether our food would run out before we got money to buy more. Never true 12/01/2024 Within the past 12 months th e food we bought just didn't last and we didn't have money to get more. Never true 12/01/2024 Dependent Care Answer Date Recorded Do you need help finding or paying for care for your loved ones. For example, child care associate teacher or elderly care for an older adult? Yes 12/01/2024 Education Answer Date Recorded Do you think completing more education or training, like finishing a GED, going to college, or learning a trade, would be helpful for you? No 12/01/2024 Employment and Income Answer Date Recor ded During the last four weeks, have you been actively looking for work? Yes 12/01/2024 Living Situation Answer Date Recorded What is your living situation? 0 12/01/2024 Interpersonal Safety Answer Date Record ed Physical Abuse 05/18/2024 Verbal Abuse 05/18/2024 Comments Unknown Sex and Gender Information Value Date Recorded Sex Assigned at Female 08/18/2024 7:59 PM EST Legal Sex Female 3:14 PM EST Gender Identity Female 08/18/2024 7:59 PM EST Sexual Orientation Lesbian or [place] 02/01/2025 12 :59 PM EDT Obstetrics History Para Term AB IAB SAB Ectopic Multiple Livin g Live Births 3 3 1 2 0 3 3 Date Outcome GA Total Labor Labor/2nd/3rd Weight Sex Type Anes PTL Suze A1 A5 Name Clin 2001 36w 1d 2240 g (79 oz) M Vag-S pont Epidur al Y Livin g 8 9 Brad Coats Delivery Location:[facility] Comments:admitted for ROM, pt recieved terb to stop labor x 3 since 32 weeks 2004 36w 5d F Vag-S pont None N Livin g Abeba segovia md Complications:Pre-eclampsia, Carrier of group B Streptococcus Delivery Location:[facility] Comments:IOL d/t Pre-E 2023 Term 39w 6d 0h 01m 0h 01m 3670 g (129.5 oz) F CS-LT ranv N Livin g 8 9 Kash aguilar MD Complications: Intolera nce Delivery Location:[facility] ([facility] Last Filed Vital Signs Vital Sign Reading Time Taken Comments Blood Pressure 123/71 02/13/2025 1:24 PM EDT Pulse 56 02/13/2025 1:24 PM EDT Temperature 36.3 C (97.4 F) 02/13/2025 1:24 PM EDT Respiratory Rate 18 12/12/2024 12:45 PM EDT Oxygen Saturation 99% 02/13/2025 1:24 PM EDT Inhaled Oxygen Concentration - - Weight 112 kg (246 lb 3.2 oz) 02/01/2025 1:22 PM EDT Height 162.6 cm (5' 4 ) 01/19/2025 3:28 PM EDT Body Mass Index 42.26 01/19/2025 3:28 PM EDT Plan of Treatment Upcoming Encounters Date Type Department Care Team (Late st Contact Info) Description 04/17/2025 10:30 AM EDT Office Visit [facility] Hematology Oncology [address] [place] [phone] Jillian Patiño PA [address] [place] [address] 08/03/2025 8:30 AM EST Consult Bariatric Surgery - [place] [address] [place] [phone] Caitlyn Rodriguez MD [address] [place] [phone] Health Maintenance Due Date Last Done Comments Breast Cancer Screening 1983 HIV Screening 06/21/2022 COVID-19 Vaccine (2023- season) 2024 Influenza Vaccine (#1) 2025 , 04/14/2024, 03/25/2018, Additional history exists Social Influencers of Health Screening 12/01/2025 12/01/2024 Cervical Cancer Screening: HPV 11/04/2028 11/05/2023 Cholesterol Screening (Lipid Panel) 09/07/2029 09/07/2024, 04/30/2019 DTaP,Tdap,and Td Vaccines (3 - Td or Tdap) 02/24/2034 02/25/2024, 02/29/2016 Pneumococcal Vaccine: Pediatrics (0 to 5 Years) and At-Risk Patients (6 to 49 Years) Aged Out 02/29/2016 No longer eligible based on patient's age to complete this topic Hepatitis C Screening Completed 10/22/2023 Depression Screening Completed 08/26/2024, 10/22/19 24 Hepatitis B Vaccines Completed 09/13/2024, 08/12/2011, 06/17/2011 MMR Vaccines Aged Out 09/13/2024 No longer eligi ble based on patient's age to complete this topic HIB Vaccines Aged Out No longer eligi ble based on patient's age to complete this topic HPV Vaccines Aged Out No longer eligi ble based on patient's age to complete this topic Hepatitis A Vaccines Aged Out No long er eligible based on patient's age to complete this topic IPV Vaccines Aged Out No longer eligi ble based on patient's age to complete this topic Meningococcal ACWY Vaccine Aged Out N o longer eligible based on patient's age to complete this topic Meningococcal B Vaccine Aged Out No l onger eligible based on patient's age to complete this topic RSV Immunization Patients Under 20 months Aged Out No longer eligible based on patient's age to complete this topic Varicella Vaccines Aged Out No longer eligible based on patient's age to complete this topic Procedures Procedure Name Priority Date/Time Associated Diagnosis Comments LIPID PANEL WITH REFLEX TO DIRECT LDL Routine 09/07/2024 11:35 AM EST Elevated glucose tolerance test HPV Routine 11/05/2023 DEPRESSION SCREENING Routine 10/22/2023 HEPATITIS C SCREENING Routine 10/22/2023 from Last 3 Months or Most Recently Relevant to Health Maintenance Results * Lipid panel with reflex to direct LDL (09/07/2024 11:35 AM EST) [facility] Cholesterol 174 0 - 200 mg/dL LAB CHEMISTRY METHOD 09/07/2024 4:04 PM [facility] Triglycerides 54 0 - 150 mg/dL LAB CHEMISTRY METHOD 09/07/2024 4:04 PM [facility] HDL 69 >=40 mg/dL LAB CHEMISTRY METHOD 09/07/2024 4:04 PM [facility] LDL Calculated 94 0 - 100 mg/dL LAB CHEMISTRY METHOD 09/07/2024 4:04 PM [facility] VLDL Cholesterol Dannie 10.8 mg/dL LAB CHEMISTRY METHOD 09/07/2024 4:04 PM [facility] Non HDL Chol. (LDL+VLDL) 105 <145 mg/dL LAB CHEMISTRY METHOD 09/07/2024 4:04 PM [facility] Chol/HDL Ratio 2.5 0.0 - 4.4 LAB CHEMISTRY METHOD 09/07/2024 4:04 PM [facility] Blood Venous blood specimen / Unknown Venipuncture / Unknown 09/07/2024 11:35 AM EST 09/07/2024 11:35 AM EST Rosi Coelho MD LAB BLOOD ORDERA BLES Final Result [facility] [address] [place] [address], * Cervical Cancer Screening: HPV (11/05/2023) [facility] Cervical Cancer Screening: HPV NEGATIVE, ABSTRACTED Historical Provider HEALTH MAINTENANCE Final Result * Depression Screening (10/22/2023) [facility] Depression Screening ABSTRACTED Historical Provider HEALTH MAINTENANCE Final Result * Hepatitis C Screening (10/22/2023) [facility] Hepatitis C Screening ABSTRACTED Historical Provider HEALTH MAINTENANCE Final Result from Last 3 Months or Most Recently Relevant to Health Maintenance Insurance [employer] Advance Directives * Full Code - Confirmed (Latest Code Status on File) Date Activated Date Inactivated Comments 05/18/2024 8:58 AM 05/21/2024 2:[address] [facility] was ascertained in the following way: Code status discussion: discussion with patient To update the patient's code status, place a code status order. Do not modify or discontinue any currently active code status orders. Care Teams Car Rental Deliverer Relationship Specialty Start Date End Date Rosi Coelho MD [address] [place], [place] PCP - General Internal Medicine 02/04/22
--- NOTE | 2025-03-15 13:15 | A.OFFVIS_ITS ---
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 *REVISION*: Details: Start time: 1.10pm, End time: 1.37pm ?I spent 22 minutes speaking with the patient on the phone plus an additional 5 minutes reviewing and updating records for a total of 27 minutes HPI Comments Details: Previous weight loss efforts: LSG (pre-LSG weight: 350lbs, lowest: 150lbs) Wakes up: 6am, Sleeps: 10pm Breakfast: skips Lunch: 1pm (fast food) Dinner: 5.30pm (3-4 foks of rice, 3-4 forks chicken, salad) Snacks: 10am (yogurt or oatmeal), 7-8pm (cereal) Exercise: none Beverages: Coffee (2 cups/d with 4 sugars and 4 creamers), Tea: none, Soda: diet Coke, Juice: orange juice in am, ETOH: none PFSH Medical History (Updated 03/15/25 @ 13:17 by Tristan Norton MD) Anemia Hypothyroidism Morbid obesity No known health problems Surgical History (Updated 02/27/25 @ 09:02 by Christine Odonnell CMA) Hx of cholecystectomy Hx of section S/P gastric sleeve procedure Family History (Updated 02/27/25 @ 09:02 by Christine Odonnell CMA) Mother Pneumonia HIV (human immunodeficiency virus infection) Father Stomach cancer Diabetes Hypertension Daughter No problems noted. Daughter No problems noted. Daughter No problems noted. Son No problems noted. Social History (Updated 02/27/25 @ 09:03 by Christine Odonnell CMA) Alcohol intake: never Patient Tobacco Use Status: Never used Tobacco Telehealth Telehealth Telehealth Platform: Telephone Location of provider rendering services: practice address Location of patient: address on file Patient Identification confirmed using: Name, : Yes Telehealth method: voice only Patient verbally consented to treatment: Yes Patient verbally consented to billing insurance company: Yes Patient informed of any privacy concerns related to visit: Yes Minutes spent on Phone/Video with Pt.: 22 Assessment & Plan Assessment & Plan (1) Morbid obesity: Code(s): E66.01 - Morbid (severe) obesity due to excess calories Category: Medical Plan: 1. An endoscopy will be scheduled to examine the anatomy of your sleeve and see if there is anything that can be improved from a technical standpoint. The possibility of biopsies was discussed. Patient needs to avoid use of NSAIDs and aspirin for 1 week prior to EGD. You must be on liquids only the day before your endoscopy. Risks of perforation and bleeding was discussed with the patient. This will be an outpatient procedure with IV sedation. 2. Please send me measurements with the body composition scale 3. Please buy the shakes and bars we discussed 4. Once the endoscopy is performed, we will discuss what would be the best way to help you
== END 2025-03-15 13:38 | disposition home or self-care (01) ==
PROVIDERS: PCP Urology Pediatric Urology; Visit Provider Surgery
DX: E66.01 Morbid (severe) obesity due to excess calories (principal)
CPT/HCPCS: 99203

== ENCOUNTER 2025-03-27 08:49 | Day surgery (SDC) | payer OTHER, SELFPAY ==
--- OUTSIDE RECORDS SUMMARY | 2025-03-15 17:27 | XMS_ITS | Encounter Summary ---
Author Organization [facility] Address [address] [place] [address] Care Team Providers Care Catering Attendant Name Role Phone Rosi Coelho MD Primary Care Provider + Encounter Details Date Type Department Care Team Description 11/25/2023 Pt. Non Urgent Medical Question OBGYN - 271 [facility] [address] [place] [address] Mabel Craig, [facility] [address] [place] [address] Social History Tobacco Use Types Packs/Day Years Used Date Smoking Tobacco: Never Smokeless Tobacco: Never Alcohol Use Standard Drinks/Week Comments Not Currently 0 (1 standard drink = 0.6 oz pur e alcohol) stopped with + hcg Financial Resource Strain Answer Date R ecorded How hard is it for you to pa y for the very basics like food, housing, medical care, and heating? Not very hard 07/03/2020 Food Insecurity Answer Date Recorded Within the past 12 months, y ou worried that your food would run out before you got money to buy more. Never true 07/03/2020 Within the past 12 months, t he food you bought just didn't last and you didn't have money to get more. Never true 07/03/2020 Transportation Needs Answer Date Record ed In the past 12 months, has l ack of transportation kept you from medical appointments or from getting medications? No 06/13 In the past 12 months, has l ack of transportation kept you from meetings, work, or getting things needed for daily living? No 07/03/2020 Sex Assigned at Date Recorded Female 06/28/2020 11:41 PM EST Job Start Date Occupation Industry Not on file Not on file Not on file documented as of this encounter Plan of Treatment Not on file documented as of this encounter Visit Diagnoses Not on filedocumented in this encounter Care Teams Catering Attendant Relationship Specialty Start Date End Date Rosi Coelho MD [address] [place] [address] PCP - General Internal Medicine 02/04/22 documented as of this encounter
--- OUTSIDE RECORDS SUMMARY | 2025-03-15 17:27 | XMS_ITS | Encounter Summary ---
Author Organization [facility] Address [address] [place] [address] Care Team Providers Care Aluminum Boat Inspector Name Role Phone Cory Rubalcava MD Primary Care Provider Cory Oliva MD Unavailable Unavailable Rosi Coelho MD Primary Care Provider + Encounter Details Date Type Department Care Team Description 01/01/2019 Pt. Non Urgent Medic al Question Physiatry - [address] [address] Orville De La Rosa PA-C Social History Tobacco Use Types Packs/Day Years Used Date Smoking Tobacco: Never Smokeless Tobacco: Never Alcohol Use Standard Drinks/Week Comments No 0 (1 standard drink = 0.6 oz pur e alcohol) Financial Resource Strain Answer Date R ecorded [...] on filedocumented in this encounter Care Teams Aluminum Boat Inspector Relationship Specialty Start Date End Date Cory Rubalcava MD PCP - General Internal Medicine 02/27/15 04/27/19 Rosi Coelho MD [address] [place] [address] PCP - General Internal Medicine 02/04/22 Cory Rubalcava MD Internal Medicine 04/28/19 02/03/22 documented as of this encounter
--- OUTSIDE RECORDS SUMMARY | 2025-03-15 17:28 | XMS_ITS | Encounter Summary ---
Author Organization [employer] [facility] Address [address] [place] [address] Care Team Providers Care Professor Of Forest Planning Name Role Phone Rosi Coelho MD Primary Care Provider + Encounter Details Date Type Department Care Team Description 02/14/2024 Automotive Accessory Installer Report Medical Records [address] [place] [address] Abstract, Provider Social History Tobacco Use Types Packs/Day Years [...] on filedocumented in this encounter Care Teams Professor Of Forest Planning Relationship Specialty Start Date End Date Rosi Coelho MD [address] [place] [address] PCP - General Internal Medicine 02/04/22 documented as of this encounter
--- OUTSIDE RECORDS SUMMARY | 2025-03-15 17:28 | XMS_ITS | Encounter Summary ---
Author Organization [facility] Address [address] [place] [address] Care Team Providers Care Chief Nurse Executive Name Role Phone Rosi Coelho MD Primary Care Provider + Encounter Details Date Type Department Care Team Description 01/30/2024 Pt. Non Urgent Medical Question OBGYN - 271 [facility] 271 [place] [address] Mabel Craig, [facility] [address] [place] [address] Social History Tobacco Use Types [...] on filedocumented in this encounter Care Teams Chief Nurse Executive Relationship Specialty Start Date End Date Rois Coelho MD [address] [place] [address] PCP - General Internal Medicine 02/04/22 documented as of this encounter
--- OUTSIDE RECORDS SUMMARY | 2025-03-15 17:28 | XMS_ITS | Encounter Summary ---
[facility] Address [address] [place] [address] Care Team Providers Care Psychiatric Orderly Name Role Phone Rosi Coelho MD Primary Care Provider + Encounter Details Date Type Department Care Team Description 12/08/2023 Orders Only OBGYN - 271 [facility] 271 [place] [address] Mabel Craig, [facility] [address] [place] [address] with 16 completed weeks gestation; with uncertain viability, single or unspecified fetus Social History Tobacco Use Types Packs/Day Years [...] on file documented as of this encounter Procedures Procedure Name Priority Date/Time Associated Diagnosis Comments CHG US PREG UTERUS AFTER 1ST TRIMEST GESTATION STAT 12/03/2023 with 16 completed weeks gestation with uncertain viability, single or unspecified fetus documented in this encounter Results * CHG US PREG UTERUS AFTER 1ST TRIMEST GESTATION (12/03/2023) 12/03/2023 Mabel Craig CNM ULTRASOUND documented in this encounter Visit Diagnoses Diagnosis with 16 completed weeks gestation with uncertain viability, single or unspecified fetus documented in this encounter Care Teams Psychiatric Orderly Relationship Specialty Start Date End Date Rosi Coelho MD [address] [place] [address] PCP - General Internal Medicine 02/04/22 documented as of this encounter
--- OUTSIDE RECORDS SUMMARY | 2025-03-15 17:28 | XMS_ITS | Encounter Summary ---
Author Organization [facility] Address [address] [place] [address] Care Team Providers Care Pumping Station Supervisor Name Role Phone Rosi Coelho MD Primary Care Provider + Encounter Details Date Type Department Care Team Description 04/03/2024 Pt. Non Urgent Medical Question OBGYN - 271 [facility] [address] [place] [address] Mabel Craig, [facility] [address] [place] [address] Social History Tobacco Use Types [...] on filedocumented in this encounter Care Teams Pumping Station Supervisor Relationship Specialty Start Date End Date Rosi Coelho MD [address] [place] [address] PCP - General Internal Medicine 02/04/22 documented as of this encounter
--- OUTSIDE RECORDS SUMMARY | 2025-03-15 17:28 | XMS_ITS | Encounter Summary ---
Author Organization [facility] Address [address] [place] [address] Care Team Providers Care Hand Expansion Envelope Maker Name Role Phone Rosi Coelho MD Primary Care Provider + Encounter Details Date Type Department Care Team Description 04/26/2024 Pt. Non Urgent Medical Question OBGYN - 271 [facility] [address] [place] [address] Mabel Craig, [facility] 175 [place] [address] Social History Tobacco Use Types [...] on filedocumented in this encounter Care Teams Hand Expansion Envelope Maker Relationship Specialty Start Date End Date Rosi Coelho MD [address] [place] [address] PCP - General Internal Medicine 02/04/22 documented as of this encounter
--- OUTSIDE RECORDS SUMMARY | 2025-03-15 17:28 | XMS_ITS | Encounter Summary ---
Author Organization [facility] Address [address] [place] [address] Care Team Providers Care Piecer Up Name Role Phone Rosi Coelho MD Primary Care Provider + Encounter Details Date Type Department Care Team Description 10/22/2023 Pt. Non Urgent Medical Question OBGYN - 271 [facility] [address] [place] [address] Mabel Craig, [facility] [address] [place] [address] Social History Tobacco Use Types [...] on filedocumented in this encounter Care Teams Piecer Up Relationship Specialty Start Date End Date Rosi Coelho MD [address] [place] [address] PCP - General Internal Medicine 02/04/22 documented as of this encounter
--- OUTSIDE RECORDS SUMMARY | 2025-03-15 17:28 | XMS_ITS | Encounter Summary ---
Author Organization [facility] Address [address] [place] [address] Care Team Providers Care Habilitation Assistant Name Role Phone Cory Rubalcava MD Primary Care Provider Cory Oliva MD Unavailable Unavailable Rosi Coelho MD Primary Care Provider + Reason for Visit * Reason Onset Date Comments Medical Records 12/13/2018 Encounter Details Date Type Department Care Team Description 12/13/2018 Telephone OBwufooN - [facility] [address] [place] [address] Jana Norton MD [address] [place] [address] [phone] Medical Records Social History Tobacco Use Types Packs/Day Years [...] on file documented as of this encounter Miscellaneous Notes * Telephone Encounter - Maritza Snider - 12/13/2018 2:18 PM EDT Patient to come to the office to sign italo documented in this encounter Plan of Treatment Not on file documented as of this encounter Visit Diagnoses Not on filedocumented in this encounter Care Teams Habilitation Assistant Relationship Specialty Start Date End Date Cory Rubalcava MD PCP - General Internal Medicine 02/27/15 04/27/19 Rosi Coelho MD [address] [place] [address] PCP - General Internal Medicine 02/04/22 Cory Rubalcava MD Internal Medicine 04/28/19 02/03/22 documented as of this encounter
--- OUTSIDE RECORDS SUMMARY | 2025-03-15 17:28 | XMS_ITS | Encounter Summary ---
Author Organization [facility] Address [address] [place] [address] Care Team Providers Care Leasing Associate Name Role Phone Cory Rubalcava MD Unavailable Unavailable Rosi Coelho MD Primary Care Provider + Encounter Details Date Type Department Care Team Description 03/30/2020 Pt. Non Urgent Medic al Question Adult Medicine [address] [address] Cory Rubalcava MD Social History Tobacco Use Types Packs/Day Years [...] on filedocumented in this encounter Care Teams Leasing Associate Relationship Specialty Start Date End Date Rosi Coelho MD [address] [place] [address] PCP - General Internal Medicine 02/04/22 Cory Rubalcava MD Internal Medicine 04/28/19 02/03/22 documented as of this encounter
--- OUTSIDE RECORDS SUMMARY | 2025-03-15 17:28 | XMS_ITS | Encounter Summary ---
Author Organization [facility] Address [address] [place] [address] Care Team Providers Care Spray Gun Repairer Helper Name Role Phone Rosi Coelho MD Primary Care Provider + Encounter Details Date Type Department Care Team Description 05/09/2024 Pt. Non Urgent Medical Question OBGYN - 271 [facility] [address] [place] [address] Mabel Craig, [facility] [address] [place] [address] Social History Tobacco Use Types [...] on filedocumented in this encounter Care Teams Spray Gun Repairer Helper Relationship Specialty Start Date End Date Rosi Coelho MD [address] [place] [address] PCP - General Internal Medicine 02/04/22 documented as of this encounter
--- OUTSIDE RECORDS SUMMARY | 2025-03-15 17:28 | XMS_ITS | Encounter Summary ---
Author Organization [facility] Address [address] [place] [address] Care Team Providers Care Auto Air Conditioning Mechanic Name Role Phone Rosi Coelho MD Primary Care Provider + Encounter Details Date Type Department Care Team Description 04/16/2024 Pt. Non Urgent Medical Question OBGYN - 271 [facility] 271 [place] [address] Mabel Craig, [facility] 175 [place] [address] Social History Tobacco Use Types [...] on filedocumented in this encounter Care Teams Auto Air Conditioning Mechanic Relationship Specialty Start Date End Date Rosi Coelho MD [address] [place] [address] PCP - General Internal Medicine 02/04/22 documented as of this encounter
--- OUTSIDE RECORDS SUMMARY | 2025-03-15 17:28 | XMS_ITS | Encounter Summary ---
Author Organization [facility] Address [address] [place] [address] Care Team Providers Care Barrow Worker Helper Name Role Phone Rosi Coelho MD Primary Care Provider + Encounter Details Date Type Department Care Team Description 12/04/2023 Orders Only Medical Records [address] [place] [address] Mabel Craig, [facility] [address] [place] [address] Social History Tobacco Use Types [...] Procedure Name Priority Date/Time Associated Diagnosis Comments OUTSIDE ULTRASOUND Routine 12/03/2023 documented in this encounter Results * OUTSIDE ULTRASOUND (12/03/2023) Mabel Craig CNM RADIOLOGY documented in this encounter Visit Diagnoses Not on filedocumented in this encounter Care Teams Barrow Worker Helper Relationship Specialty Start Date End Date Rosi Coelho MD [address] [place] [address] PCP - General Internal Medicine 02/04/22 documented as of this encounter
--- OUTSIDE RECORDS SUMMARY | 2025-03-15 17:28 | XMS_ITS | Encounter Summary ---
Author Organization [employer] [facility] Address [address] [place] [address] Care Team Providers Care Neonatologist Name Role Phone Cory Rubalcava MD Primary Care Provider Cory Oliva MD Unavailable Unavailable Rosi Coelho MD Primary Care Provider + Reason for Visit * Reason Onset Date Comments Mychart Rx Refill 02/20/2019 Encounter Details Date Type Department Care Team Description 02/20/2019 Refill Adult Medicine [address] [address] Uziel Palmer NP Mychart Rx Refill Social History Tobacco Use Types Packs/Day Years [...] encounter Miscellaneous Notes * Telephone Encounter - VESTA Kelsey - 02/21/2019 8:15 AM EDT Paper rx. Awaiting cosign and will place in outbox to fax. * Telephone Encounter - Jasmyn Gutierrez M.A. - 02/20/2019 12:16 PM EDT Lab Results Component Value Date NA 140 03/25/2018 K 4.5 03/25/2018 CO2 27.9 03/25/2018 CL 100 03/25/2018 BUN 10 03/25/2018 CREAT 0.7 03/25/2018 GLU 99 02/29/2016 CA 9.8 03/25/2018 GFR > 60 03/25/2018 Last ov with Nicky 10/12/18 * Telephone Encounter - Jasmyn Gutierrez M.A. - 02/20/2019 12:15 PM EDTFrom: Katarina Rodriguez To: Uziel Palmer NP Sent: 02/20/2019 12:05 PM EDT Subject: Medication Renewal Request Original authorizing provider: NOEMÍ Patricia would like a refill of the following medications: hydrOXYzine (ATARAX) 25 MG tablet [Uziel Palmer NP] Preferred pharmacy: [id number] - [place] - [facility] [place]EN [place] Comment: Medication renewals requested in this message routed to other providers: levothyroxine (SYNTHROID, LEVOTHROID) 150 MCG tablet [Cory Rubalcava MD] documented in this encounter Plan of Treatment Not on file documented as of this encounter Visit Diagnoses Not on filedocumented in this encounter Care Teams Neonatologist Relationship Specialty Start Date End Date Cory Rubalcava MD PCP - General Internal Medicine 02/27/15 04/27/19 Rosi Coelho MD [address] [place] [address] PCP - General Internal Medicine 02/04/22 Cory Rubalcava MD Internal Medicine 04/28/19 02/03/22 documented as of this encounter
--- OUTSIDE RECORDS SUMMARY | 2025-03-15 17:28 | XMS_ITS | Encounter Summary ---
Author Organization [facility] Address [address] [place] [address] Care Team Providers Care Scoop Machine Operator Name Role Phone Rosi Coelho MD Primary Care Provider + Encounter Details Date Type Department Care Team Description 02/05/2024 Pt. Non Urgent Medical Question OBGYN - 271 [facility] 271 [place] [address] Mabel Craig, [facility] 175 [place] [address] Social History Tobacco Use Types [...] on filedocumented in this encounter Care Teams Scoop Machine Operator Relationship Specialty Start Date End Date Rosi Coelho MD [address] [place] [address] PCP - General Internal Medicine 02/04/22 documented as of this encounter
--- OUTSIDE RECORDS SUMMARY | 2025-03-15 17:28 | XMS_ITS | Encounter Summary ---
Author Organization [facility] Address [address] [place] [address] Care Team Providers Care Superintendent Measurement Name Role Phone Rosi Coelho MD Primary Care Provider + Encounter Details Date Type Department Care Team Description 03/29/2024 Pt. Non Urgent Medical Question OBGYN - 271 [facility] [address] [place] [address] Mabel Craig, [facility] [address] [place] [address] Social History Tobacco Use Types [...] on filedocumented in this encounter Care Teams Superintendent Measurement Relationship Specialty Start Date End Date Rosi Coelho MD [address] [place] [address] PCP - General Internal Medicine 02/04/22 documented as of this encounter
--- OUTSIDE RECORDS SUMMARY | 2025-03-15 17:28 | XMS_ITS | Encounter Summary ---
Author [facility] Address [address] [place] [address] Care Team Providers Care Manufacturing Baker Name Role Phone Rosi Coelho MD Primary Care Provider + Encounter Details Date Type Department Care Team Description 02/05/2024 Telephone OBEasydiagnosisN - [facility] [address] [place] [address] Mabel Craig, [facility] [address] [place] [address] Social History Tobacco Use Types [...] encounter Miscellaneous Notes * Telephone Encounter - Jasmyn Groves R.N. - 02/05/2024 11:10 AM EDT Spoke with patient. Pt My Chart message with c/o u/c and pelvic pressure and pain. Pt called and she states u/c 1-2x an hour since yesterday morning and pain in vagina with pressure. DFM for 2 days. Has not felt the baby move at all. Pt states well hydrated and ate yesterday not yet today. Pt advised to eat and drink now. Pt denies burning or difficulty urinating.Pt advised to go to [facility] for evaluation no available appts in all offices.[facility] called [facility] Carole WARD given. documented in this encounter Plan of Treatment Not on file documented as of this encounter Visit Diagnoses Not on filedocumented in this encounter Care Teams Manufacturing Baker Relationship Specialty Start Date End Date Rosi Coelho MD [address] [place] [address] PCP - General Internal Medicine 02/04/22 documented as of this encounter
--- OUTSIDE RECORDS SUMMARY | 2025-03-15 17:28 | XMS_ITS | Encounter Summary ---
Author Organization [facility] Address [address] [place] [address] Care Team Providers Care Handling Tech Name Role Phone Cory Rubalcava MD Unavailable Unavailable Rosi Coelho MD Primary Care Provider + Encounter Details Date Type Department Care Team Description 01/16/2020 Hospital Medical Records [address] [place] [address] Caitlyn Rodriguez MD [address] [place] [address] [address] [place] [address] Social History Tobacco Use Types Packs/Day Years [...] on filedocumented in this encounter Care Teams Handling Tech Relationship Specialty Start Date End Date Rosi Coelho MD [address] [place] [address] PCP - General Internal Medicine 02/04/22 Cory Rubalcava MD Internal Medicine 04/28/19 02/03/22 documented as of this encounter
--- OUTSIDE RECORDS SUMMARY | 2025-03-15 17:28 | XMS_ITS | Encounter Summary ---
Author Organization [employer] [facility] Address [address] [place] [address] Care Team Providers Care Compliance And Control Analyst Name Role Phone Rosi Coelho MD Primary Care Provider + Encounter Details Date Type Department Care Team Description 09/23/2023 Release of Information Medical Records [address] [place] [address] Abstract, Provider Social History Tobacco Use Types [...] on filedocumented in this encounter Care Teams Compliance And Control Analyst Relationship Specialty Start Date End Date Rosi Coelho MD [address] [place] [address] PCP - General Internal Medicine 02/04/22 documented as of this encounter
--- OUTSIDE RECORDS SUMMARY | 2025-03-15 17:28 | XMS_ITS | Encounter Summary ---
Author Organization [facility] Address [address] [place] [address] Care Team Providers Care Cyber Policy And Strategy Planner Name Role Phone Rosi Coelho MD Primary Care Provider + Encounter Details Date Type Department Care Team Description 12/04/2023 Pt. Non Urgent Medical Question OBGYN - 271 [facility] 271 [place] [address] Mabel Craig, [facility] 175 [place] [address] Social History Tobacco Use Types [...] on filedocumented in this encounter Care Teams Cyber Policy And Strategy Planner Relationship Specialty Start Date End Date Rosi Coelho MD [address] [place] [address] PCP - General Internal Medicine 02/04/22 documented as of this encounter
--- OUTSIDE RECORDS SUMMARY | 2025-03-15 17:28 | XMS_ITS | Encounter Summary ---
Author Organization [facility] Address [address] [place] [address] Care Team Providers Care Rn Long Term Care Name Role Phone Cory Rubalcava MD Unavailable Unavailable Rosi Coelho MD Primary Care Provider + Reason for Visit * Reason Onset Date Comments TEST RESULTS 02/01/2020 Encounter Details Date Type Department Care Team Description 02/01/2020 Pt. Non Urgent Medic al Question Adult Medicine [address] [address] Cory Rubalcava MD Social History Tobacco Use [...] on file documented as of this encounter Progress Notes * Miya Juan M.A. - 02/16/2020 3:35 PM EDT Called pt and told her the pathology looks fine. * Miya Juan M.A. - 02/16/2020 9:14 AM EDT Called the pt this morning and left a message for her to call me back. documented in this encounter Miscellaneous Notes * Telephone Encounter - Jasmyn Gutierrez M.A. - 02/01/2020 4:13 PM EDTFrom: Katarina Rodriguez To: Cory Rubalcava MD Sent: 02/01/2020 4:11 PM EDT Subject: Question regarding OUTSIDE PATHOLOGY I have a question about OUTSIDE PATHOLOGY resulted on 01/16/20. documented in this encounter Plan of Treatment Not on file documented as of this encounter Visit Diagnoses Not on filedocumented in this encounter Care Teams Rn Long Term Care Relationship Specialty Start Date End Date Rosi Coelho MD [address] [place] [address] PCP - General Internal Medicine 02/04/22 Cory Rubalcava MD Internal Medicine 04/28/19 02/03/22 documented as of this encounter
--- OUTSIDE RECORDS SUMMARY | 2025-03-15 17:28 | XMS_ITS | Encounter Summary ---
[facility] Organization [facility] Address [address] [place] [address] Care Team Providers Care Legal Document Assistant Name Role Phone Rosi Coelho MD Primary Care Provider + Encounter Details Date Type Department Care Team Description 12/02/2023 Refill OBGYN - [address] [facility] 271 [place] [address] Mabel Craig, CN 175 [place] [address] Social History Tobacco Use Types [...] on filedocumented in this encounter Care Teams Legal Document Assistant Relationship Specialty Start Date End Date Rosi Coelho MD [address] [place] [address] PCP - General Internal Medicine 02/04/22 documented as of this encounter
--- OUTSIDE RECORDS SUMMARY | 2025-03-15 17:28 | XMS_ITS | Encounter Summary ---
Author Organization [facility] Address [address] [place] [address] Care Team Providers Care Mexican Food Machine Tender Name Role Phone Rosi Coelho MD Primary Care Provider + Encounter Details Date Type Department Care Team Description 11/26/2023 Pt. Non Urgent Medical Question OBGYN - 271 [facility] 271 [place] [address] Mabel Craig, [facility] 175 [place] [address] Social History Tobacco Use Types [...] on filedocumented in this encounter Care Teams Mexican Food Machine Tender Relationship Specialty Start Date End Date Rosi Coelho MD [address] [place] [address] PCP - General Internal Medicine 02/04/22 documented as of this encounter
--- OUTSIDE RECORDS SUMMARY | 2025-03-15 17:28 | XMS_ITS | Encounter Summary ---
Author Organization [facility] Address [address] [place] [address] Care Team Providers Care E/M Engineer Name Role Phone Rosi Coelho MD Primary Care Provider + Encounter Details Date Type Department Care Team Description 04/14/2024 Pt. Non Urgent Medical Question OBGYN - 271 [facility] 271 [place] [address] Mabel Craig, [facility] 175 [place] [address] Social History Tobacco Use Types [...] on filedocumented in this encounter Care Teams E/M Engineer Relationship Specialty Start Date End Date Rosi Coelho MD [address] [place] [address] PCP - General Internal Medicine 02/04/22 documented as of this encounter
--- OUTSIDE RECORDS SUMMARY | 2025-03-15 17:28 | XMS_ITS | Encounter Summary ---
Author Organization [facility] Address [address] [place] [address] Care Team Providers Care Consultative Sales Associate Name Role Phone Rosi Coelho MD Primary Care Provider + Encounter Details Date Type Department Care Team Description 07/01/2022 Telephone Adult Medicine [facility] 444 [place] [address] Rosi Coelho MD [address] [place] [address] Social History Tobacco Use Types Packs/Day Years [...] on filedocumented in this encounter Care Teams Consultative Sales Associate Relationship Specialty Start Date End Date Rosi Coelho MD [address] [place] [address] PCP - General Internal Medicine 02/04/22 documented as of this encounter
--- OUTSIDE RECORDS SUMMARY | 2025-03-15 17:28 | XMS_ITS | Encounter Summary ---
Author Organization [employer] [facility] Address [address] [place] [address] Care Team Providers Care Manager Sales Name Role Phone Cory Rubalcava MD Primary Care Provider Cory Oliva MD Unavailable Unavailable Rosi Coelho MD Primary Care Provider + Encounter Details Date Type Department Care Team Description 01/28/2019 Pt. Non Urgent Medical Question General Surgery - [place] 175 [facility] [address] [place] [address] Caitlyn Rodriguez MD [address] [place] [address] [address] [place], [place] [phone] Social History Tobacco Use Types Packs/Day Years [...] as of this encounter Progress Notes * Kate Kapoor M.A. - 01/31/2019 8:05 AM EDTFrom: Katarina Rodriguez To: Caitlyn Rodriguez MD Sent: 01/28/2019 5:52 PM EDT Subject: Hello I'm sorry that I didn't make it but I would love to reschedule my appointment please and i had a family [id number] documented in this encounter Plan of Treatment Not on file documented as of this encounter Visit Diagnoses Not on filedocumented in this encounter Care Teams Manager Sales Relationship Specialty Start Date End Date Cory Rubalcava MD PCP - General Internal Medicine 02/27/15 04/27/19 Rosi Coelho MD [address] [place] [address] PCP - General Internal Medicine 02/04/22 Cory Rubalcava MD Internal Medicine 04/28/19 02/03/22 documented as of this encounter
--- OUTSIDE RECORDS SUMMARY | 2025-03-15 17:28 | XMS_ITS | Encounter Summary ---
Author Organization [facility] Address [address] [place] [address] Care Team Providers Care Reception Centre Manager Name Role Phone Cory Rubalcava MD Primary Care Provider Cory Oliva MD Unavailable Unavailable Rosi Coelho MD Primary Care Provider + Encounter Details Date Type Department Care Team Description 03/01/2015 Release of Information Medical Records [address] [place] [address] Abstract, Provider Social History Tobacco Use Types [...] on filedocumented in this encounter Care Teams Reception Centre Manager Relationship Specialty Start Date End Date Cory Rubalcava MD PCP - General Internal Medicine 02/27/15 04/27/19 Rosi Coelho MD [address] [place] [address] PCP - General Internal Medicine 02/04/22 Cory Rubalcava MD Internal Medicine 04/28/19 02/03/22 documented as of this encounter
--- OUTSIDE RECORDS SUMMARY | 2025-03-15 17:28 | XMS_ITS | Encounter Summary ---
Author Organization [facility] Address [address] [place] [address] Care Team Providers Care Radiator Core Tester Name Role Phone Rosi Coelho MD Primary Care Provider + Encounter Details Date Type Department Care Team Description 10/26/2023 Transfer Records Medical Records [address] [place] [address] Social History Tobacco Use Types Packs/Day Years [...] on filedocumented in this encounter Care Teams Radiator Core Tester Relationship Specialty Start Date End Date Rosi Coelho MD [address] [place] [address] PCP - General Internal Medicine 02/04/22 documented as of this encounter
--- OUTSIDE RECORDS SUMMARY | 2025-03-15 17:28 | XMS_ITS | Encounter Summary ---
Author Organization [facility] Address [address] [place] [address] Care Team Providers Care Drum Handler Name Role Phone Rosi Coelho MD Primary Care Provider + Encounter Details Date Type Department Care Team Description 05/09/2024 Pt. Non Urgent Medical Question OBGYN - 271 [facility] 271 [place] [address] Mabel Craig, [facility] 175 [place] [address] Social History Tobacco Use Types [...] on filedocumented in this encounter Care Teams Drum Handler Relationship Specialty Start Date End Date Rosi Coelho MD [address] [place] [address] PCP - General Internal Medicine 02/04/22 documented as of this encounter
--- OUTSIDE RECORDS SUMMARY | 2025-03-15 17:28 | XMS_ITS | Encounter Summary ---
Author Organization [facility] Address [address] [place] [address] Care Team Providers Care Statistical Methods Teacher Name Role Phone Rosi Coelho MD Primary Care Provider + Encounter Details Date Type Department Care Team Description 02/23/2024 Pt. Non Urgent Medical Question OBGYN - 271 [facility] 271 [place] [address] Mabel Craig, [facility] 175 [place] [address] Social History Tobacco Use Types [...] on filedocumented in this encounter Care Teams Statistical Methods Teacher Relationship Specialty Start Date End Date Rosi Coelho MD [address] [place] [address] PCP - General Internal Medicine 02/04/22 documented as of this encounter
--- OUTSIDE RECORDS SUMMARY | 2025-03-15 17:28 | XMS_ITS | Encounter Summary ---
Author Organization [facility] Address [address] [place] [address] Care Team Providers Care Rate Supervisor Name Role Phone Rosi Coelho MD Primary Care Provider + Encounter Details Date Type Department Care Team Description 10/22/2023 Pt. Non Urgent Medical Question OBGYN - 271 [facility] 271 [place] [address] Mabel Craig, [facility] 175 [place] [address] Social History Tobacco Use Types [...] on filedocumented in this encounter Care Teams Rate Supervisor Relationship Specialty Start Date End Date Rosi Coelho MD [address] [place] [address] PCP - General Internal Medicine 02/04/22 documented as of this encounter
--- OUTSIDE RECORDS SUMMARY | 2025-03-15 17:28 | XMS_ITS | Encounter Summary ---
Author Organization [email or web address] [facility] Address [address] [place] [address] Care Team Providers Care Candle Wrapper Name Role Phone Cory Rubalcava MD Primary Care Provider Cory Oliva MD Unavailable Unavailable Rosi Coelho MD Primary Care Provider + Reason for Visit * Reason Onset Date Comments REFERRAL 01/27/2019 Asthma/ COPD/ Di abetes Encounter Details Date Type Department Care Team Description 01/27/2019 Telephone Respiratory and Diabetes Medicaid/AC[employer] Pharmacist [address] [place] [address] Cory Rubalcava MD REFERRAL (Asthma/ COPD/ Diabetes) Social History Tobacco Use Types Packs/Day Years [...] encounter Miscellaneous Notes * Telephone Encounter - Jessika Stone PA-C - 01/27/2019 11:55 AM EDT Okay to wait * Telephone Encounter - Carlos Enrique GuajardoMSonia - 01/27/2019 11:53 AM EDT JOHNSON 10/12/18 * Telephone Encounter - Angely Branham - 01/27/2019 11:49 AM EDT Good morning, Please consider referring this patient to the [facility] Asthma/ COPD/ Diabetes Clinic located in [place] for further management of their diabetes. Thank you. documented in this encounter Plan of Treatment Not on file documented as of this encounter Visit Diagnoses Not on filedocumented in this encounter Care Teams Candle Wrapper Relationship Specialty Start Date End Date Cory Rubalcava MD PCP - General Internal Medicine 02/27/15 04/27/19 Rosi Coelho MD [address] [place] [address] PCP - General Internal Medicine 02/04/22 Cory Rubalcava MD Internal Medicine 04/28/19 02/03/22 documented as of this encounter
--- OUTSIDE RECORDS SUMMARY | 2025-03-15 17:28 | XMS_ITS | Encounter Summary ---
Author Organization [facility] Address [address] [place] [address] Care Team Providers Care Compressor House Operator Name Role Phone Rosi Coelho MD Primary Care Provider + Encounter Details Date Type Department Care Team Description 10/22/2023 Pt. Non Urgent Medical Question OBGYN - 271 [facility] 271 [place] [address] Mabel Craig, [facility] 175 [place] [address] Social History Tobacco Use Types [...] on filedocumented in this encounter Care Teams Compressor House Operator Relationship Specialty Start Date End Date Rosi Coelho MD [address] [place] [address] PCP - General Internal Medicine 02/04/22 documented as of this encounter
--- OUTSIDE RECORDS SUMMARY | 2025-03-15 17:28 | XMS_ITS | Encounter Summary ---
Author Organization [facility] Address [address] [place] [address] Care Team Providers Care Motor Vehicle Dispatcher Name Role Phone Rosi Coelho MD Primary Care Provider + Encounter Details Date Type Department Care Team Description 03/04/2024 Pt. Non Urgent Medical Question OBGYN - 271 [facility] 271 [place] [address] Mabel Craig, [facility] 175 [place] [address] Social History Tobacco Use Types [...] encounter Miscellaneous Notes * Telephone Encounter - Jamila Roach R.N. - 03/04/2024 12:52 PM EDTFrom: Katarina Rodriguez To: Mabel Craig CNM Sent: 03/04/2024 12:13 PM EDT Subject: Good afternoon Good afternoon Mabel, I???ve been having pains every two hours and my stomach is tight. I tried using a heating pad and that is not working. documented in this encounter Plan of Treatment Not on file documented as of this encounter Visit Diagnoses Not on filedocumented in this encounter Care Teams Motor Vehicle Dispatcher Relationship Specialty Start Date End Date Rosi Coelho MD [address] [place] [address] PCP - General Internal Medicine 02/04/22 documented as of this encounter
--- NOTE | 2025-03-23 15:36 | HO.ANESPROP2 ---
Documented by User: Loren Shah NP 03/23/25 15:36 HPI - Anesthesia Eval Consult details Narrative: 39yo F for Upper Endoscopy [facility] Active Problems Active Problems: All Active Problems Anemia (Acute) Hypothyroidism (Acute) Morbid obesity (Acute) Past Medical History Medical History (Updated 03/15/25 @ 13:17 by Tristan Norton MD) Anemia Hypothyroidism Morbid obesity No known health problems Family History Family History (Updated 02/27/25 @ 09:02 by Christine Odonnell CMA) Mother Pneumonia HIV (human immunodeficiency virus infection) Father Stomach cancer Diabetes Hypertension Daughter No problems noted. Daughter No problems noted. Daughter No problems noted. Son No problems noted. Surgical History Surgical History (Updated 02/27/25 @ 09:02 by Christine Odonnell CMA) Hx of cholecystectomy Hx of section S/P gastric sleeve procedure Social History Social History (Updated 02/27/25 @ 09:03 by Christine Odonnell CMA) Alcohol intake: never Patient Tobacco Use Status: Never used Tobacco Advance Directives: No Advance Directives Information Provided: Yes Meds Allergies Allergy/AdvReac Type Severity Reaction Status Date / Time No Known Allergies Allergy Verified 03/27/25 08:54 Home Medications ?Medication ?Instructions ?Recorded ?Confirmed ?Last Taken ?Type ferrous sulfate 325 mg (65 mg 325 mg PO BID 02/27/25 03/27/25 Unknown History iron) tablet levothyroxine 25 mcg capsule 25 mcg PO DAILY 02/27/25 03/27/25 Unknown History Assessment and Plan Assessment Anesthesia Assessment: Chart Reviewed Documented by User: Lucero Rice MD 03/27/25 08:57 PMFSH Past Medical History Medical History (Updated 03/15/25 @ 13:17 by Tristan Norton MD) Anemia Hypothyroidism Morbid obesity No known health problems Family History Family History (Updated 02/27/25 @ 09:02 by Christine Odonnell CMA) Mother Pneumonia HIV (human immunodeficiency virus infection) Father Stomach cancer Diabetes Hypertension Daughter No problems noted. Daughter No problems noted. Daughter No problems noted. Son No problems noted. Family history of problems with anesthesia: No Surgical History Surgical History (Updated 02/27/25 @ 09:02 by Christine Odonnell CMA) Hx of cholecystectomy Hx of section S/P gastric sleeve procedure History of Problems with Anesthesia: No Social History Social History (Updated 02/27/25 @ 09:03 by Christine Odonnell CMA) Alcohol intake: never Patient Tobacco Use Status: Never used Tobacco Advance Directives: No Advance Directives Information Provided: Yes Meds Allergies Allergy/AdvReac Type Severity Reaction Status Date / Time No Known Allergies Allergy Verified 03/27/25 08:54 Home Medications ?Medication ?Instructions ?Recorded ?Confirmed ?Last Taken ?Type ferrous sulfate 325 mg (65 mg 325 mg PO BID 02/27/25 03/27/25 Unknown History iron) tablet levothyroxine 25 mcg capsule 25 mcg PO DAILY 02/27/25 03/27/25 Unknown History Exam Airway Mallampati Class: III TM Dist: >3cm Neck ROM: Full Partial: Lower Heart: rrr Lungs: cta Assessment and Plan Assessment Anesthesia Assessment: Anesthesia Plan Discussed Final Anesthetic Review Family History of Problems with Anesthesia: No History of Problems with Anesthesia: No NPO: Yes ASA Class: III Final Preanesthetic Review: No Changes in Pt Med Stat, Meds/Allgs Chart Reviewed and Consent Obtained/Reviewed Patient Risk: Intermediate Procedure Risk: Intermediate Anesthetic Plan Anesthetic Plan: MAC: Disposition: Standard PACU
[2025-03-27 08:52] VITALS: BMI 42.7
[2025-03-27 09:01] VITALS: BP 132/69; PULSE 71; RESP 18; TEMP 36.7; O2SAT 97
[2025-03-27 09:04] LABS: UPreg QC Valid YES
[2025-03-27] MEDS: Lactated Ringers 1,000 ML 80 ML IVCONT (09:04)
--- NOTE | 2025-03-27 09:05 | MHC.SHP ---
Pre-Procedural Eval Section A - 24 Hr Update-Section A only Date of Service: 03/27/25 The patient is an INPATIENT: No The patient has been examined within 24 hours of the surgical procedure. The History & Physical has been completed within 30 days and I have reviewed it.: Yes Section B - Complete if H&P > 30 days Chief Complaint: Morbid (severe) obesity due to excess calories Relevant Family History (Specify if Yes): No Relevant Social History: None Present Medications: None Medical History: No relevant PMH History of Previous Operations: Relevant previous surgery/procedure and date(s) (laparoscopic sleeve gastrectomy) Allergies: Allergies Allergy/AdvReac Type Severity Reaction Status Date / Time No Known Allergies Allergy Verified 03/27/25 08:54 Review of Systems Sugical H&P ROS: Negative: Constitution, Cardiovascular, Respiratory, Neurological, Psychiatric, Hem-Onc, Allergic/Immunologic, Gastrointestinal, Genitourinary, Musculoskeletal, Integumentary, Endocrine and Eyes/Ears/Nose/Throat Exam Surgical H&P Exam: Normal: HEENT, Normal: Heart, Normal: Lungs, Normal: Extremities, Normal: Abdomen, Normal: Skin and Normal: Neurological Plan Diagnosis/Plan: Unchanged (EGD to assess the sleeve's anatomy. Risks of bleeding and perforation were discussed with the patient and she is in agreement with the plan.) I have reviewed the history and physical and performed a pertinent physical examination on my patient. No changes have occurred unless specified. Time Spent With Patient Time: Total time managing care of this patient today ____ minutes.
--- NOTE | 2025-03-27 09:06 | PM.OP ---
Brief Operative Note Date of Service: 03/27/25 Pre-op diagnosis: Morbid obesity Post-op diagnosis: same Procedure: PROCEDURE DATE: 03/27/2025 PREOPERATIVE DIAGNOSIS: Morbid obesity, s/p sleeve gastrectomy POSTOPERATIVE DIAGNOSIS: ?Same as above. 1) Esophagitis, 2) evenly enlarged sleeve PROCEDURE: [id number] with biopsies Surgeon: ?Jostin Norton M.D.. Ph.D. Senior Quality Technician: None ? Anesthesia: IV sedation Estimated blood loss: ?Minimal FINDINGS AND PROCEDURE: ? OPERATIVE INDICATIONS: ?The patient is a 39 year old female known to me who underwent a laparoscopic sleeve gastrectomy. The patient had inadequate weight loss. Based on this information I recommended an upper endoscopy to evaluate the patient's symptoms. Risks and complications of the surgery were discussed with the patient in advance particularly the possibility of perforation or bleeding that may require surgical intervention. The patient understood the risks and was in agreement with the plan. ? PROCEDURE: After informed consent was obtained by the patient, the patient was ?transferred to the Operating Room and was placed in the supine position.? After successful induction of IV sedation, a mouth block was inserted and the patient was placed in the left lateral decubitus position. An upper endoscopy was performed next, the oropharynx and esophagus appeared within the normal limits. There was no hiatal hernia. The z-line was irregular with tongues of gastric mucosa protruding into the esophagus in more than 50% circumference. Two biopsies were obtained from the distal esohagus 2-3 cm proximal to the GE junction and two additional biopsies from the GE junction. The sleeve was entered. It was evenly enlarged throughout but there was no proximal fundal redundancy. There was no gastritis. There was no stricture or ulcer. Biopsies were obtained from the proximal sleeve as well as the distal antrum. No significant bleeding was noted from any of the biopsy sites. Retroflexion of the scope was possible and confirned the even enlargement of the sleeve without fundal redundancy without a diaphragmatic hernia. The scope was then advanced into the duodenum which appeared to be normal as well. At that point the duodenum ?and the sleeve were decompressed and the scope was withdrawn from the patient's mouth. The patient extubated and was transferred in stable condition to the Recovery Room for further care. I was present and performed all steps of the procedure. There were no residents to assist with this case. Jostin Norton M.D., Ph.D. Surgeon: Tristan Norton MD Anesthesia: MAC Was an Senior Quality Technician used for this Procedure?: No Estimated blood loss (mL): 0 IV fluids (mL): 400 Pathology: other (1) antrum x1, 2) proximal sleeve/gastric fundus x1, 3) EGJ x2, 4) distal esophagus x2) Condition: stable Disposition: PACU
[2025-03-27 09:36] VITALS: BP 101/58; PULSE 67; RESP 18; TEMP 36.5; O2SAT 94
[2025-03-27 09:51] VITALS: BP 111/66; PULSE 66; RESP 16; O2SAT 97
== END 2025-03-27 10:14 | disposition home or self-care (01) ==
PROVIDERS: Nurse Practitioner; PCP Family Medicine; Visit Provider Surgery
PROC: 0DJ08ZZ Inspection of Upper Intestinal Tract, Via Natural or Artificial Opening Endoscopic (ICD-10-PCS; CPT 43235; principal; 2025-03-27 10:10)
DX: E66.01 Morbid (severe) obesity due to excess calories (principal); Z68.41 Body mass index [BMI] 40.0-44.9, adult; Z98.84 Bariatric surgery status; Z90.3 Acquired absence of stomach [part of]; K20.80 Other esophagitis without bleeding; D64.9 Anemia, unspecified; E03.9 Hypothyroidism, unspecified; Z79.899 Other long term (current) drug therapy; Z90.49 Acquired absence of other specified parts of digestive tract
CPT/HCPCS: 43239; 81025; 88305; 88313; 88342; J2003; J2704

== ENCOUNTER → 2025-03-27 08:49 | Outpatient (BNV) | payer OTHER, SELFPAY | PROVIDERS: PCP Family Medicine; Visit Provider Surgery | DX: E66.01 Morbid (severe) obesity due to excess calories (principal); Z68.41 Body mass index [BMI] 40.0-44.9, adult; K20.90 Esophagitis, unspecified without bleeding | CPT/HCPCS: 43239 ==

== ENCOUNTER 2025-03-30 10:52 | Outpatient (REF) | payer OTHER, SELFPAY ==
--- NOTE | ~2025-03-30 | XR_ITS ---
EXAMINATION: XR CHEST CLINICAL INFORMATION: E66.01 - Morbid (severe) obesity due to excess calories COMPARISON: None available. TECHNIQUE: PA and lateral views FINDINGS: No hyperinflation. No consolidation, pleural effusion or pneumothorax. Cardiomediastinal silhouette size is normal. Mild multilevel thoracic spondylosis. Vascular clips right upper quadrant abdomen likely prior cholecystectomy. Sutures and vascular clips in the left upper quadrant abdomen suggesting gastric bypass. Patient's large body habitus/obesity. XR/XR chest 2V IMPRESSION: No acute airspace disease. Electronically signed by: Luis Armando Marin MD 03/30/2025 11:55 AM EDT
--- NOTE | 2025-03-30 10:57 | ECG_ITS ---
Test Reason : E66.01 Blood Pressure : */* mmHG Vent. Rate : 68 BPM Atrial Rate : 68 BPM P-R Int : 172 ms QRS Dur : 82 ms QT Int : 412 ms P-R-T Axes : 52 44 28 degrees QTcB Int : 438 ms Normal sinus rhythm Normal ECG No previous ECGs available Referred By: Tristan Norton Electronically Signed By: TERESA BUSTOS
[2025-03-30 11:07] LABS: MANUAL DIFF FLAG NO
[2025-03-30 11:54] LABS: Hematocrit 36.5 % (37.0-47.0); Hemoglobin 12.4 g/dl (12.0-16.0); Imm Gran Abs Auto 0.02 X10*3/uL (0.00-0.03); Imm Gran Pct Auto 0.4 % (0.0-0.4); Lymphocytes Absolute Auto 1.7 X10*3/uL (1.2-4.9); Mean Corpuscular HGB Conc 34.0 g/dl (31.0-35.0); Mean Corpuscular Hemoglobin 28.6 pg (27.0-33.0); Mean Corpuscular Volume 84.3 fL (80.0-98.0); NRBC Abs Auto 0.000 X10*3/uL (0.0-0.012); NRBC Pct Auto 0.0 /100WBC (0.0-0.2); Platelet Count 301 X10*3/uL (160-400); Red Blood Count 4.33 X10*6/uL (4.20-5.50); White Blood Count 5.4 X10*3/uL (4.8-10.8)
[2025-03-30 12:15] LABS: Anion Gap 9 (12-20)
[2025-03-30 12:23] LABS: Alanine Aminotransferase 18 U/L (0-31); Albumin Level 4.4 g/dL (3.5-5.0); Alkaline Phosphatase 84 U/L (39-117); Aspartate Amino Transferase 20 U/L (5-31); Blood Urea Nitrogen 11 mg/dL (9-16); Calcium 8.9 mg/dL (8.4-10.2); Carbon Dioxide 28 mmol/L (22-29); Chloride 107 mmol/L (96-108); Cholesterol 174 mg/dL (<200); Estimated Glomerular Filt Rate > 60; HDL Cholesterol 54 mg/dL (>40); Iron 114 mcg/dL (30-160); Percent Iron Saturation 43 % (15-50); Potassium 3.9 mmol/L (3.3-5.1); Sodium 140 mmol/L (135-145); Total Iron Binding Capacity 268 mcg/dL (228-428); Total Protein 7.4 g/dL (6.5-8.0); Triglycerides 70 mg/dL (<150); Unsaturated Iron Binding 154 ug/dL
[2025-03-30 12:50] LABS: Folate 15.8 ng/mL (> or = 4.0); Vitamin B12 329 pg/mL (200-900)
--- OUTSIDE RECORDS SUMMARY | 2025-03-30 12:59 | XMS_ITS | Clinical Summary ---
Author Organization [facility] Address [address] [address] Phone Care Team Providers Care Hollow Tile Partition Erector Name Role Phone Unavailable Primary Care Provider [...] YEARS) 12/18/2001 PAP SMEAR 12/18/2004 MAMMOGRAM 2023 INFLUENZA VACCINE (#1) 2025 COVID-19 VACCINE (2023-2 5 season) 2025 Adult Td,Tdap Booster 02/28/2026 02/29/2016 HEPATITIS A [...] It is not the complete legal health record.[facility]
--- OUTSIDE RECORDS SUMMARY | 2025-03-30 12:59 | XMS_ITS | Clinical Summary ---
Author Organization [facility] Address [address] [place] [address] Phone Care Team Providers Care Boring Machine Operator Helper Name Role Phone Rosi Coelho MD [...] mgmt of thyroid. Labs drawn today at carding machine operator Assessment & Plan (12/12/2024 1:33 PM EDT): [...] BMI of 50 by 28wks transfer to [facility] DVT prophylaxis- Lovenox if CS and BMI [...] BMI of 50 by 28wks transfer to [facility] DVT prophylaxis- Lovenox if CS and BMI >35 Supervision of high-risk 10/22/2023 09/09/2024 Overview (04/17/2024): 1. [facility] site: [address]) 2. Delivery site: [facility] 3. Mobile Mommas: 4. Dating criteria: 1st trimester ultrasound only 5. Blood type: Lab Results Component Value Date BLDTYPE O POSITIVE 10/22/2023 6. Genetic screening: Date: Result: Low risk female; Horizon screen negative' AFP screen negative 6. GBS: Date: 7. FOB name: Singh Blackwood [facility] [birth year], 8. Plans A. Epidural or other [...] BMI of 50 by 28wks transfer to [facility] DVT prophylaxis- Lovenox if CS and BMI >35 Supervision of high-risk 10/22/2023 05/18/2024 Overview (05/18/2024): 1. [facility] site: [address]) 2. Delivery site: [facility] 3. Mobile Mommas: 4. Dating criteria: 1st trimester ultrasound only 5. Blood type: Lab Results Component Value Date BLDTYPE O POSITIVE 10/22/2023 6. Genetic screening: Date: Result: Low risk female; Horizon screen negative' AFP screen negative 6. GBS: Date: 7. FOB name: Singh Blackwood [facility] [birth year], 8. Plans A. Epidural or other pain management - B. Labor support identified - C. Tdap - Date:, 02/25/2024 Flu - Date: D. Breast or Bottle feed: E. Baby's name - F. Circumcision - 9. Hospital Course: Hypothyroid 02/27/2015 05/18/2024 Overview (05/18/2024): Pt noncompliant with adult medicine and mgmt of thyroid. Labs drawn today at carding machine operator Lab Results Component Value Date TSH 6.03 [...] - 02/13/2025 11:59 PM EDT Hospital Encounter [facility] [address] [place] [phone] Anderson Edmonds MD Iron deficiency anemia due to chronic blood loss (Primary Dx) Discharge Disposition: Home or Self Care 02/01/2025 1:00 PM EDT - 02/01/2025 11:59 PM EDT Hospital Encounter [facility] [address] [place] [phone] Anderson Edmonds MD Iron deficiency anemia due to chronic blood loss (Primary Dx) Discharge Disposition: Home or Self Care 01/19/2025 3:30 PM EDT Office Visit [facility] Hematology Oncology [address] [place] [phone] Jillian Patiño PA Iron deficiency anemia due to chronic blood loss (Primary Dx); S/P gastric sleeve procedure; Menorrhagia with irregular cycle from Last 3 Months Immunizations Name Administration Dates Next Due Hepatitis B (Terplld-B-Hmrrc , Recombivax HB-Adult) 19yo and older 08/12/2011,06/17/2011 [...] for det ection of COVID-19 virus; COMMENT: [facility] ED 02/21/21 Type 2 diabetes mellitus wit [...] Supervision of high-risk 10/22/2023 1. [facility] site: [address] ([facility]) 2. Delivery site: [facility] 3. Mobile Mommas: 4. Dating criteria: 1st [...] for your loved ones. For example, child life therapist or elderly care for an older adult? [...] Epidur al Y Livin g 8 9 [facility] Delivery Location:[facility] Comments:admitted for ROM, pt recieved terb to stop labor x 3 since 32 weeks 2004 36w 5d F Vag-S pont None N Livin g Abeba segovia md Complications:Pre-eclampsia, Carrier of group B Streptococcus Delivery Location:[facility] Comments:IOL d/t Pre-E 2023 Term 39w 6d 0h 01m 0h 01m 3670 g (129.5 oz) F CS-LT ranv N Livin g 8 9 Kash Meena aguilar MD Complications: Intolera nce Delivery Location:[facility] ([facility] Last Filed Vital Signs Vital [...] Description 04/17/2025 10:30 AM EDT Office Visit [facility] Hematology Oncology [address] [place] [phone] Jillian Patiño PA [address] [place] [address] 08/03/2025 8:30 AM EST Consult Bariatric Surgery - [place] [address] [facility] [address] [place] [phone] Caitlyn Rodriguez MD [address] [place] [phone] Health Maintenance Due Date Last Done Comments Breast Cancer Screening 1983 HIV Screening 06/21/2022 COVID-19 Vaccine ( season) 2025 Influenza Vaccine (#1) 2025 , 04/14/2024, 03/25/2018, [...] Completed 10/22/2023 Depression Screening Completed 08/26/2024, 10/22/19 Hepatitis B Vaccines Completed 09/13/2024, 08/12/2011, 06/17/2011 [...] to direct LDL (09/07/2024 11:35 AM EST) [facility] Cholesterol 174 0 - 200 mg/dL LAB CHEMISTRY METHOD 09/07/2024 4:04 PM EST [facility] Triglycerides 54 0 - 150 mg/dL LAB CHEMISTRY METHOD 09/07/2024 4:04 PM [facility] HDL 69 >=40 mg/dL LAB CHEMISTRY METHOD 09/07/2024 4:04 PM [facility] LDL Calculated 94 0 - 100 mg/dL LAB CHEMISTRY METHOD 09/07/2024 4:04 PM [facility] VLDL Cholesterol Dannie 10.8 mg/dL LAB CHEMISTRY METHOD 09/07/2024 4:04 PM [facility] Non HDL Chol. (LDL+VLDL) 105 <145 mg/dL LAB CHEMISTRY METHOD 09/07/2024 4:04 PM [facility] Chol/HDL Ratio 2.5 0.0 - 4.4 LAB CHEMISTRY METHOD 09/07/2024 4:04 PM [facility] Blood Venous blood specimen / Unknown Venipuncture / Unknown 09/07/2024 11:35 AM EST 09/07/2024 11:35 AM EST Rosi Coelho MD LAB BLOOD ORDERA BLES Final Result [facility] [address] [place] [address], [place] [phone] * Cervical Cancer Screening: HPV (11/05/2023) [facility] Cervical Cancer Screening: HPV NEGATIVE, ABSTRACTED Historical Provider HEALTH MAINTENANCE Final Result * Depression Screening (10/22/2023) [facility] Depression Screening ABSTRACTED Historical Provider HEALTH MAINTENANCE Final Result * Hepatitis C Screening (10/22/2023) [facility] Hepatitis C Screening ABSTRACTED Historical Provider HEALTH MAINTENANCE Final Result from Last 3 Months or Most Recently Relevant to Health Maintenance Insurance [facility] PL[facility] Advance Directives * Full Code - [...] currently active code status orders. Care Teams Boring Machine Operator Helper Relationship Specialty Start Date End Date Rosi Coelho MD [address], [place] PCP - General Internal Medicine 02/04/22
[2025-03-30 13:00] LABS: Ferritin 73 ng/mL (10-250)
== END 2025-03-30 10:53 | disposition home or self-care (01) ==
LOC: HO.LAB 10:52
PROVIDERS: Visit Provider Surgery
DX: E66.01 Morbid (severe) obesity due to excess calories (principal); E03.9 Hypothyroidism, unspecified
CPT/HCPCS: 36415; 71046; 80053; 80061; 82306; 82607; 82728; 82746; 83036; 83525; 83540; 84425; 84443; 84590; 84630; 85025; 86140; 93005

== ENCOUNTER → 2025-03-30 10:57 | Outpatient (BNV) | payer OTHER, SELFPAY | PROVIDERS: Visit Provider Internal Medicine | DX: E66.01 Morbid (severe) obesity due to excess calories (principal) | CPT/HCPCS: 93010 ==

== ENCOUNTER → 2025-03-30 11:19 | Outpatient (BNV) | payer OTHER, SELFPAY | PROVIDERS: Visit Provider Radiology Diagnostic Radiology | DX: E66.01 Morbid (severe) obesity due to excess calories (principal) | CPT/HCPCS: 71046 ==

== ENCOUNTER 2025-04-13 10:41 | Outpatient (AMB) | payer OTHER, SELFPAY ==
--- NOTE | 2025-04-13 10:35 | MHC.WMTHER ---
Intake Intake Visit Reasons: VIDEO BH Intake Allergies No Known Allergies Allergy (Verified 03/27/25 08:54) [facility] Medical History (Updated 03/29/25 @ 20:05 by Tristan Norton MD) Anemia Hypothyroidism Morbid obesity No known health problems Surgical History (Updated 02/27/25 @ 09:02 by Christine Odonnell CMA) Hx of cholecystectomy Hx of section S/P gastric sleeve procedure Family History (Updated 02/27/25 @ 09:02 by Christine Odonnell CMA) Mother Pneumonia HIV (human immunodeficiency virus infection) Father Stomach cancer Diabetes Hypertension Daughter No problems noted. Daughter No problems noted. Daughter No problems noted. Son No problems noted. Social History (Updated 02/27/25 @ 09:03 by Christine Odonnell CMA) Are you a primary director of patient care to a significant other at home: No Do you presently have visiting nurse or other home services: No Alcohol intake: never Patient Tobacco Use Status: Never used Tobacco Behavioral Health Assessment Weight Management Therapy Therapy Notes Details PT is a 39 years old female, who presents for a visit to complete BH assessment as part of surgical weight loss program. PT was initially referred to the program by her PCP, PT is looking for a revision as she had a LSG in 2020 at [facility] with Dr Rodriguez, and she has been gainign weight after she give to her daughter 11 months ago. Presenting Concerns Referral Source WMP-Provider. Reason for referral Completion of behavioral health assessment as part of process for weight-loss surgery. Precipitating Event Obesity. Living Situation Current Living Situation Rent At risk of losing current housing? No Satisfied with current living situation? Yes Comments PT lives with her partner and her daughter. Food/Weight/Diet Expectations of change PT started the program on 02/27/2025 at 241Lbs and met with the surgeon on 03/15/2025. PT reports a recent weight of 234Lbs on 04/11/2025. Patient wants to go back to 150Lbs which was her lowest after previous LSG and right before . PT is implementing the following: Current meal plan: Combination of shakes, bars, and 1 meal per day. Exercise plan: stationary bike, 5 days a week. Scale: yes Communication with provider: Tuesdays. Social History Family history and relationship PT has been in a relationship for about 3 years, and they have an [id number] daughter. PT also has a 23 y/o and 19 y/o children who live independently. Parents both , and she has 2 sisters and 1 brother. PT reports she doesn't have a relationship with them. Growing up, she was in a foster home from age 3 until age 16. PT reports she didn't have a good childhood. Parental/Familial administrative personal assistant obligations 11 month old daughter. Developmental history and status Pt had an IEP in school but reports current functioning WNL. Social support Partner and kids. Community support None. Yarsanism/Spirituality None. Cultural/Ethnic information . Italian. Legal Involvement and History Current or historical involvement with the legal system? None. Education Highest grade completed 11th Grade. Has GED. Preferred learning style Auditory Currently enrolled in educational program? No Interested in further educational program? Yes Educational Interests/Skills PT is interested in pursuing a career in nursing. Pt has worked in childcare for the past years. Employment Employment Status Unemployed Wants help to find employment? No Financial Situation Describe current financial situation Comfortable and Occasional struggle Financial assistance? [employer], SSI, TAFDC and Other ([facility]) Service Service? No Mental Health and Addiction Treatment Current/Past substance abuse? No Comments Alcohol: None Cigarettes/Tobacco: None. Cannabis/Edibles: None. Current/Past addictive behavior concerns? No Psychiatric history The patient participated in counseling for approximately one year in 2022 due to stress and financial difficulties. She denies any prior mental health treatment, history of psychiatric crises, inpatient admissions, or concerns related to suicidal ideation, suicide attempts, self-harm, or harm to others. She reports no formal mental health diagnoses during counseling and has never been prescribed or taken psychiatric medications. Medical and Physical Health Summary Additional Medical History not covered in history None aditional Sexual History concerns None reported. Physical exam in the last year? Yes Pain Screening Current pain? No Pain in the last few months? No Medications Is the patient compliant with medications? Yes Does the patient have Price Guardian in place? Not applicable Does the patient use complimentary health approaches? No Trauma/Abuse History History of trauma? Yes Questionnaires PHQ-9 Over the last 2 weeks, how often have you been bothered by any of the following problems? 1. Little interest or pleasure in doing things: nearly every day 2. Feeling down, depressed, or hopeless: more than half the days 3. Trouble falling or staying asleep, or sleeping too much: nearly every day 4. Feeling tired or having little energy: nearly every day 5. Poor appetite or overeating: more than half the days 6. Feeling bad about yourself - or that you are a failure or have let yourself or your family down: nearly every day 7. Trouble concentrating on things, such as reading the newspaper or watching television: not at all 8. Moving or speaking so slowly that other people could have noticed. Or the opposite - being so fidgety or restless that you have been moving around a lot more than usual: not at all 9. Thoughts that you would be better off or of hurting yourself in some way: not at all Total score: 16 Depression Screening Interpretation: Positive (From New PT pack administered on 02/27/2025.) Depression Screening Done: Yes Source: Developed by Drs. Dru Jackson, Ena Jansen, Ritesh Young and colleagues, with an educational mine from [employer]. Binge Eating Scale Group 1 A. I don't feel self-conscious about my wt. or body size when I'm with others. B. I feel concerned about how I look to others, but it normally does not make me fell disappointed with myself C. I do get self-conscious about my appearance and wt. which makes me feel disappointed in myself. D. I feel very self-conscious about my wt. and frequently I feel intense shame and disgust for myself. I try to avoid social contacts because of my self-consciousness. Response Group 1: C Group 2 A. I don't have any difficulty eating slowly in the proper manner. B. Although I seem to gobble down foods, I don't end up feeling stuffed because of eating to much. C. At times, I tend to eat quickly and then, I feel uncomfortably full afterwards. D. I have the habit of bolting down my food, without really chewing it. When this happens I usually feel uncomfortably stuffed because I've eaten to much. Response Group 2: C Group 3 A. I feel capable to control my eating urges when I want to. B. I feel like I have failed to control my eating more than the average person. C. I feel utterly helpless when it comes to feeling in control of my eating urges. D. Because I feel so helpless about controlling my eating I have become very desperate about trying to get control. Response Group 3: D Group 4 A. I don't have the habit of eating when I'm bored. B. I sometimes eat when I'm bored, but often I'm able to get busy and get my mind off food. C. I have a regular habit of eating when I'm bored, but occasionally, I can use some other activity to get my mind off eating. D. I have a strong habit of eating when I'm bored. Nothing seems to help me breath the habit. Response Group 4: A Group 5 A. I'm usually physically hungry when I eat something. B. Occasionally, I eat something on impulse even though I really am not hungry. C. I have the regular habit of eating foods, that I might not really enjoy, to satisfy a hungry feeling even though physically, I don't need the food. D. Although I'm not physically hungry, I get a hungry feeling in my mouth that only seems to be satisfied when I eat a food, like sandwich, that fills my mouth. Sometimes, when I eat the food to satisfy my mouth hunger, I then spit the food out so I won't gain weight. Response Group 5: A Group 6 A. I don't feel any guilt or self-hate after I overeat. B. After I overeat, occasionally I feel guilt or self-hate. C. Almost all the time I experience strong guilt or self-hate after I overeat. Response Group 6: B Group 7 A. I don't lose total control of my eating when dieting even after periods when I overeat. B. Sometimes when I eat a forbidden food on a diet, I feel like I blew it and eat even more. C. Frequently, I have the habit of saying to myself, I've blown it now, why not go all the way, when I overeat on a diet. When that happens I eat more. D. I have a regular habit of starting a strict diets for myself but I break the diets by going on an eating binge. My life seems to be either a feast or famine. Response Group 7: A Group 8 A. I rarely eat so much food that I feel uncomfortably stuffed afterwards. B. Usually about once a month, I each such a quantity of food, I end up feeling very stuffed. C. I have regular periods during the month when I eat large amounts of food, either at mealtime or at snacks. D. I eat so much food that I regularly feel quite uncomfortable after eating and sometimes a bit nauseous. Response Group 8: A Group 9 A. My level of calorie intake does not go up very high or go down very low on a regular basis. B. Sometimes after I overeat, I will try to reduce my caloric intake to almost nothing to compensate for the excess calories I've eaten. C. I have a regular habit of overeating during the night. It seems that my routine is not to be hungry in the morning but overeat in the evening. D. In my adult years, I have had week-long periods where I practically starve myself. This follows periods when I overeat. It seems I live a life of either feast or famine. Response Group 9: B Group 10 A. I usually am able to stop eating when I want to. I know when enough is enough. B. Every so often, I experience a compulsion to eat which I can't seem to control. C. Frequently, I experience strong urges to eat which I seem unable to control, but at other times I can control my eating urges. D. I feel incapable of controlling urges to eat. I have a fear of not being able to stop eating voluntarily. Response Group 10: A Group 11 A. I don't have any problem stopping eating when I feel full. B. I usually can stop eating when I feel full but occasionally overeat leaving me feeling uncomfortably stuffed. C. I have a problem stopping eating once I start and usually I feel uncomfortably stuffed after I eat a meal. D. Because I have a problem not being able to stop eating when I want, I sometimes have to induce vomiting to relieve my stuffed feeling. Response Group 11: C Group 12 A. I seem to eat just as much when I'm with others, Family social gatherings as when I'm by myself. B. Sometimes, when I'm with other persons, I don't eat as much as I want to eat because I'm self-conscious about my eating. C. Frequently, I eat only a small amount of food when others are present, because I'm very embarrassed about my eating. D. I feel so ashamed about overeating that I pick times to overeat when I know no one will see me. I feel like a closet eater. Response Group 12: A Group 13 A. I eat three meals a day with only an occasional between meal snack. B. I eat 3 meals a day, but I also normally snack between meals. C. When I am snacking heavily, I get in the habit of skipping regular meals. D. There are regular periods when I seem to be continually eating, with no planned meals. Response Group 13: A Group 14 A. I don't think much about trying to control unwanted eating urges. B. At least some of the time, I feel my thoughts are pre-occupied with trying to control my eating urges. C. I feel that frequently I spend much time thinking about how much I ate or about trying not to eat anymore. D. It seems to me that most of my waking hours are pre-occupied by thoughts about eating or not eating. I feel like I'm constantly struggling not to eat. Response Group 14: C Group 15 A. I don't think about food a great deal. B. I have strong craving for food but they last only for brief periods of time. C. I have days when I can't seem to think about anything else but food. D. Most of my days seem to be pre-occupied with thoughts about food. I feel like I live to eat. Response Group 15: A Group 16 A. I usually know whether or not I'm physically hungry. I take the right portion of food to satisfy me. B. Occasionally, I feel uncertain about knowing whether or not I'm physically hungry. A these times it's hard to know how much food I should take to satisfy me. C. Even though I might know how many calories I should eat, I don't have any idea what is a normal amount of food for me. Response Group 16: B Binge Eating Score: 14 Score less than 17 Minimal Risk Score between 18-26 Moderate Risk Score between 27-46 High Risk Assessment & Plan Assessment & Plan (1) Adjustment disorder: Code(s): F43.20 - Adjustment disorder, unspecified (2) Pre-bariatric surgery psychological evaluation: Code(s): Z71.89 - Other specified counseling Plan The patient was not cleared today as the assessment was not completed. The patient will return in 2-4 weeks to continue the evaluation. Next appointment: 05/04/2025 at 11am, Telehealth Telehealth Telehealth Telehealth Platform: [employer] Mobile Location of provider rendering services: other (Home office. [place], [place]) Location of patient: address on file Patient Identification confirmed using: Name, : Yes Telehealth method: voice only Patient verbally consented to treatment: Yes Patient verbally consented to billing insurance company: Yes Patient informed of any privacy concerns related to visit: Yes Minutes spent on Phone/Video with Pt.: 50 Coding Level of Care Code New Pt Tele Psy Diag Eval ([id number]) Patient Type New Diagnoses Adjustment disorder F43.20 Pre-bariatric surgery psychological evaluation Z71.89 Time Spent (min) 50
--- OUTSIDE RECORDS SUMMARY | 2025-04-13 12:29 | XMS_ITS | Clinical Summary ---
Author Organization [facility] Address [address] [place] [address] Phone Care Team Providers Care Pile Driver Name Role Phone Rosi Coelho MD Primary [...] mgmt of thyroid. Labs drawn today at mixer operator raw salt Assessment & Plan (12/12/2024 1:33 PM EDT): [...] BMI of 50 by 28wks transfer to [facility] [place] DVT prophylaxis- Lovenox if CS and BMI [...] BMI of 50 by 28wks transfer to [facility] [place] DVT prophylaxis- Lovenox if CS and BMI >35 Supervision of high-risk 10/22/2023 09/09/2024 Overview (04/17/2024): 1. [facility] site: [address]) 2. Delivery site: [facility] 3. Mobile Mommas: 4. Dating criteria: 1st trimester ultrasound only 5. Blood type: Lab Results Component Value Date BLDTYPE O POSITIVE 10/22/2023 6. Genetic screening: Date: Result: Low risk female; Horizon screen negative' AFP screen negative 6. GBS: Date: 7. FOB name: Singh Blackwood [facility] [birth year], 8. Plans A. Epidural or [...] BMI of 50 by 28wks transfer to [facility] [place] DVT prophylaxis- Lovenox if CS and BMI >35 Supervision of high-risk 10/22/2023 05/18/2024 Overview (05/18/2024): 1. [facility] site: [address]) 2. Delivery site: [facility] 3. Mobile Mommas: 4. Dating criteria: 1st trimester ultrasound only 5. Blood type: Lab Results Component Value Date BLDTYPE O POSITIVE 10/22/2023 6. Genetic screening: Date: Result: Low risk female; Horizon screen negative' AFP screen negative 6. GBS: Date: 7. FOB name: Singh Blackwood [facility] 78, 8. Plans A. Epidural or other pain management - B. Labor support identified - C. Tdap - Date:, 02/25/2024 Flu - Date: D. Breast or Bottle feed: E. Baby's name - F. Circumcision - 9. Hospital Course: Hypothyroid 02/27/2015 05/18/2024 Overview (05/18/2024): Pt noncompliant with adult medicine and mgmt of thyroid. Labs drawn today at mixer operator raw salt Lab Results Component Value Date TSH 6.03 [...] - 02/13/2025 11:59 PM EDT Hospital Encounter [facility] [address] [place] [phone] Anderson Edmonds MD Iron deficiency anemia due to chronic blood loss (Primary Dx) Discharge Disposition: Home or Self Care 02/01/2025 1:00 PM EDT - 02/01/2025 11:59 PM EDT Hospital Encounter [facility] [address] [place] [phone] Anderson Edmonds MD Iron deficiency anemia due to chronic blood loss (Primary Dx) Discharge Disposition: Home or Self Care 01/19/2025 3:30 PM EDT Office Visit [facility] Hematology Oncology [address] [place] [phone] Jillian Patiño PA Iron deficiency anemia due to chronic blood loss (Primary Dx); S/P gastric sleeve procedure; Menorrhagia with irregular cycle from Last 3 Months Immunizations Immunization Administration Dates Next Due Hepatitis B ([id number]-Pkjqf , Recombivax HB-Adult) 19yo and older 08/12/2011,06/17/2011 [...] for det ection of COVID-19 virus; COMMENT: [facility] ED 02/21/21 Type 2 diabetes mellitus wit [...] Supervision of high-risk 10/22/2023 1. [facility] site: [address] ([facility]) 2. Delivery site: [facility] 3. Mobile Mommas: 4. Dating [...] ral masectomy passed at 61 Diabetes Mother Annamaire hypertension Ovarian cancer Other 1 mat cousin [...] for your loved ones. For example, child and family services worker or elderly care for an older adult? [...] Date Recorded What is your living situation? Unrecognized valu e 12/01/2024 Interpersonal Safety Answer Date Record ed Physical Abuse Unrecognized value 05/18/2024 Verbal Abuse Unrecognized value 05/18/2024 Comments Unknown Sex and Gender Information [...] Livin g 8 9 Brad Coats Delivery Location:[facility] Comments:admitted for ROM, pt recieved terb to stop labor x 3 since 32 weeks 2004 36w 5d F Vag-S pont None N Livin g Abeba segovia md Complications:Pre-eclampsia, Carrier of group B Streptococcus [facility] Comments:IOL d/t Pre-E 2023 Term 39w 6d 0h 01m 0h 01m 3670 g (129.5 oz) F CS-LT ranv N Livin g 8 9 Kash aguilar MD Complications: Intolera nce Delivery Location:[facility] ([facility] Last Filed Vital Signs [...] Description 04/17/2025 10:30 AM EDT Office Visit [facility] Hematology Oncology [address] [place] [phone] Jillian Patiño PA [address] [place] [address] 08/03/2025 8:30 AM EST Consult Bariatric Surgery - [place] [address] [place] [phone] Caitlyn Rodriguez MD [address] [place] [phone] Health Maintenance Due Date Last Done Comments Breast Cancer Screening 1985 HPV Vaccines (1 - 3-dose SCDM series) 12/18/2010 HIV Screening 06/21/2022 COVID-19 Vaccine ( season) 2025 Influenza Vaccine (#1) 2025 , 04/14/2024, 03/25/2018, Additional history exists Social Influencers of Health Screening 12/01/2025 12/01/2024 Cervical Cancer Screening: HPV 11/04/2028 11/05/2023 Cholesterol Screening (Lipid Panel) 09/07/2029 09/07/2024, 04/30/2019 DTaP,Tdap,and Td Vaccines (3 - Td or Tdap) 02/24/2034 02/25/2024, 02/29/2016 RSV Immunization Adult Patients (1 - 1-dose 75+ series) 12/18/2058 Pneumococcal Vaccine: Pediatrics (0 to 5 Years) [...] to direct LDL (09/07/2024 11:35 AM EST) [facility] Cholesterol 174 0 - 200 mg/dL LAB CHEMISTRY METHOD 09/07/2024 4:04 PM EST [facility] Triglycerides 54 0 - 150 mg/dL LAB CHEMISTRY METHOD 09/07/2024 4:04 PM EST [facility] HDL 69 >=40 mg/dL LAB CHEMISTRY METHOD 09/07/2024 4:04 PM [facility] LDL Calculated 94 0 - 100 mg/dL LAB CHEMISTRY METHOD 09/07/2024 4:04 PM [facility] VLDL Cholesterol Dannie 10.8 mg/dL LAB CHEMISTRY METHOD 09/07/2024 4:04 PM [facility] Non HDL Chol. (LDL+VLDL) 105 <145 mg/dL LAB CHEMISTRY METHOD 09/07/2024 4:04 PM [facility] Chol/HDL Ratio 2.5 0.0 - 4.4 LAB CHEMISTRY METHOD 09/07/2024 4:04 PM [facility] Blood Venous blood specimen / Unknown Venipuncture / Unknown 09/07/2024 11:35 AM EST 09/07/2024 11:35 AM EST Rosi Coelho MD LAB BLOOD ORDERA BLES Final Result [facility] [address] [place] [address], [place] [phone] * Cervical Cancer Screening: HPV (11/05/2023) Pathologist [facility] Cervical Cancer Screening: HPV NEGATIVE, ABSTRACTED Historical Provider HEALTH MAINTENANCE Final Result * Depression Screening (10/22/2023) Pathologist [facility] Depression Screening ABSTRACTED Historical Provider HEALTH MAINTENANCE Final Result * Hepatitis C Screening (10/22/2023) Pathologist [facility] Hepatitis C Screening ABSTRACTED Historical Provider HEALTH MAINTENANCE Final Result from Last 3 Months or Most Recently Relevant to Health Maintenance Insurance [facility] Advance Directives * Full Code - Confirmed (Latest Code Status on File) Date Activated Date Inactivated Comments 05/18/2024 8:58 AM 05/21/2024 2:54 PM This code s tatus was ascertained in the following way: Code status discussion: discussion with patient To update the patient's code status, place a code status order. Do not modify or discontinue any currently active code status orders. Care Teams Pile Driver Relationship Specialty Start Date End Date Rosi Coelho MD [address] [facility], [place] PCP - General Internal Medicine 02/04/22
--- OUTSIDE RECORDS SUMMARY | 2025-04-13 12:29 | XMS_ITS | Clinical Summary ---
Author Organization [facility] Address [address] [address] Phone Care Team Providers Care Hydropulper Name Role Phone Unavailable Primary Care Provider [...] It is not the complete legal health record.[facility]
--- OUTSIDE RECORDS SUMMARY | 2025-04-13 12:29 | XMS_ITS | Patient Health Record ---
Author Organization [facility] Address [address] [phone] Support Name Relationship Address Phone Katarina Rodriguez Guarantor Unknown [phone] Allergies No Known Allergies Reason For Referral [...] Insured Coverage Start Date Coverage End Date [place] ATT CLAIMS [address] [place] [address] [id number] Katarina Rodriugez Self - patient is the insured Medications Administered Medication Instructions Date of Administration Dosage Notes Depo 150mg 04/11/2022 Medical (General) History Surgical History Surgery Date(Month/Year) gastric sleeve 2020 Hospitalization History Reason Date(Month/Year) childbirth
== END 2025-04-13 11:28 | disposition home or self-care (01) ==
LOC: HO.HBST 10:41
PROVIDERS: PCP Family Medicine; Visit Provider Counselor Mental Health
DX: F43.20 Adjustment disorder, unspecified (principal); Z71.89 Other specified counseling
CPT/HCPCS: 90791

== ENCOUNTER 2025-05-08 11:56 | Outpatient (AMB) | payer OTHER, SELFPAY ==
--- NOTE | 2025-05-08 11:55 | A.OFFWM_ITS ---
Intake Intake Visit Reasons: VIDEO BH Intake Part 2 (F/U) Allergies No Known Allergies Allergy (Verified 03/27/25 08:54) PFSH Medical History (Updated 04/18/25 @ 18:40 by Tristan Norton MD) Anemia Hypothyroidism Morbid obesity No known health problems Surgical History (Updated 02/27/25 @ 09:02 by Christine Odonnell CMA) Hx of cholecystectomy Hx of section S/P gastric sleeve procedure Family History (Updated 02/27/25 @ 09:02 by Christine Odonnell CMA) Mother Pneumonia HIV (human immunodeficiency virus infection) Father Stomach cancer Diabetes Hypertension Daughter No problems noted. Daughter No problems noted. Daughter No problems noted. Son No problems noted. Social History (Updated 02/27/25 @ 09:03 by Christine Odonnell CMA) Are you a primary career representative to a significant other at home: No Do you presently have visiting nurse or other home services: No Alcohol intake: never Patient Tobacco Use Status: Never used Tobacco Behavioral Health Assessment Weight Management Therapy Therapy Notes Details PT is a 39 years old female, who presents for a second visit to complete BH assessment as part of surgical weight loss program. Presenting Concerns Referral Source WMP-Provider. Reason for referral Completion of behavioral health assessment as part of process for weight-loss surgery. Precipitating Event Obesity. Living Situation Current Living Situation Rent At risk of losing current housing? No Satisfied with current living situation? Yes Comments PT lives with her partner and her daughter. Food/Weight/Diet Expectations of change PT started the program on 02/27/2025 at 241Lbs and met with the surgeon on 03/15/2025. PT reports her weight was 234Lbs on 04/11/2025 and her last weight was 231 lbs on 05/02/25. Patient wants to go back to 150Lbs, which was her lowest after previous LSG and right before . PT is implementing the following: Current meal plan: Combination of shakes, bars, and 1 meal per day. Exercise plan: stationary bike, 5 days a week. Scale: yes Communication with provider: Tuesdays. History/Relationship with food The patient reports that following the of her last daughter, she experienced significant weight gain during her , reaching 250 lbs at the time of delivery. She describes that this period was marked by depression and preeclampsia, and she gained approximately 60 lbs throughout the . Over the past year, her eating habits became i ncreasingly disorganized, with a pattern of skipping meals, increased consumption of soda, and frequent reliance on fast food. Example of meals before starting the program: Breakfast: skip Lunch: 1pm (fast food) Dinner: 5.30pm (3-4 forks of rice, 3-4 forks chicken, salad) Snacks: 10am (yogurt or oatmeal), 7-8pm (cereal) Beverages: Coffee (2 cups/d with 8 sugars and 8 creamers each), Tea: none, Soda: 1-2 at day Coke, Juice: orange juice in am, ETOH: none This pattern reflects a history of irregular meal timing, high intake of sugar- sweetened beverages, and limited nutritional balance, all of which contributed to her weight gain and challenges with energy and mood prior to engaging in the current structured meal plan. History/Relationship with weight The patient reports a history of healthy weight in adolescence (109 lbs), but began gaining steadily after being diagnosed with thyroid issues at age 14. She experienced significant weight gain with each , especially her second. Over the past 10 years, her weight ranged from a low of 150 lbs to a high of 350 lbs prior to LSG in 2020; she was 189 lbs before her last . History/Relationship with dieting Bariatric Surgery in 2020. 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 No Do you feel out of control when you eat a large amount of food in a short period of time? No Do you eat large amounts of food rapidly and typically alone? No Night Eating Do you wake up at least once during the night to eat? No If you wake up in the night, do you find that it is necessary to eat something in order to fall back asleep? No Do you have little or no appetite in the morning and feel very hungry in the evening, often overeating between dinner and when you go to bed? Yes Social History Family history and relationship PT has been in a relationship for about 3 years, and they have an 20-nkefr-pyg daughter. PT also has a 23 y/o and 19 y/o children who live independently. Parents both , and she has 2 sisters and 1 brother. PT reports she doesn't have a relationship with them. Growing up, she was in a foster home from age 3 until age 16. PT reports she didn't have a good childhood. Parental/Familial alcohol and drug counselor obligations 11 month old daughter. Developmental history and status PT had an IEP in school, but reports current functioning WNL. Social support Partner and kids. Community support None. Christianity/Spirituality None. Cultural/Ethnic information . [place]. Legal Involvement and History Current or historical involvement with the legal system? None. Education Highest grade completed 11th Grade. Has GED. Preferred learning style Auditory Currently enrolled in educational program? No Interested in further educational program? Yes Educational Interests/Skills PT is interested in pursuing a career in nursing. PT has worked in childcare for the past years. Employment Employment Status Unemployed Wants help to find employment? No Financial Situation Describe current financial situation Comfortable and Occasional struggle Financial assistance? Food [place], SSI, TAFDC and Other ([facility]) Service Service? No Mental Health and Addiction Treatment Current/Past substance abuse? No Comments Alcohol: None Cigarettes/Tobacco: None. Cannabis/Edibles: None. Current/Past addictive behavior concerns? No Psychiatric history The patient participated in counseling for approximately one year in 2022 due to stress and financial difficulties. She denies any prior mental health treatment, history of psychiatric crises, inpatient admissions, or concerns related to suicidal ideation, suicide attempts, self-harm, or harm to others. She reports no formal mental health diagnoses during counseling and has never been prescribed or taken psychiatric medications. Medical and Physical Health Summary Additional Medical History not covered in history None aditional Sexual History concerns None reported. Physical exam in the last year? Yes Pain Screening Current pain? No Pain in the last few months? No Medications Is the patient compliant with medications? Yes Does the patient have Price Guardian in place? Not applicable Does the patient use complimentary health approaches? No Trauma/Abuse History History of trauma? Yes Questionnaires PHQ-9 Over the last 2 weeks, how often have you been bothered by any of the following problems? 1. Little interest or pleasure in doing things: several days 2. Feeling down, depressed, or hopeless: not at all 3. Trouble falling or staying asleep, or sleeping too much: not at all 4. Feeling tired or having little energy: several days 5. Poor appetite or overeating: not at all 6. Feeling bad about yourself - or that you are a failure or have let yourself or your family down: several days 7. Trouble concentrating on things, such as reading the newspaper or watching television: not at all 8. Moving or speaking so slowly that other people could have noticed. Or the opposite - being so fidgety or restless that you have been moving around a lot more than usual: not at all 9. Thoughts that you would be better off or of hurting yourself in some way: not at all Total score: 3 Depression Screening Interpretation: Negative Depression Screening Done: Yes 50483 - PHQ-9 Billing: Yes Source: Developed by Drs. Dru Jackson, Ena Jansen, Ritesh Young and colleagues, with an educational mine from [employer]. Binge Eating Scale Group 1 A. I don't feel self-conscious about my wt. or body size when I'm with others. B. I feel concerned about how I look to others, but it normally does not make me fell disappointed with myself C. I do get self-conscious about my appearance and wt. which makes me feel disappointed in myself. D. I feel very self-conscious about my wt. and frequently I feel intense shame and disgust for myself. I try to avoid social contacts because of my self- consciousness. Response Group 1: C Group 2 A. I don't have any difficulty eating slowly in the proper manner. B. Although I seem to gobble down foods, I don't end up feeling stuffed because of eating to much. C. At times, I tend to eat quickly and then, I feel uncomfortably full afterwards. D. I have the habit of bolting down my food, without really chewing it. When this happens I usually feel uncomfortably stuffed because I've eaten to much. Response Group 2: C Group 3 A. I feel capable to control my eating urges when I want to. B. I feel like I have failed to control my eating more than the average person. C. I feel utterly helpless when it comes to feeling in control of my eating urges. D. Because I feel so helpless about controlling my eating I have become very desperate about trying to get control. Response Group 3: D Group 4 A. I don't have the habit of eating when I'm bored. B. I sometimes eat when I'm bored, but often I'm able to get busy and get my mind off food. C. I have a regular habit of eating when I'm bored, but occasionally, I can use some other activity to get my mind off eating. D. I have a strong habit of eating when I'm bored. Nothing seems to help me breath the habit. Response Group 4: A Group 5 A. I'm usually physically hungry when I eat something. B. Occasionally, I eat something on impulse even though I really am not hungry. C. I have the regular habit of eating foods, that I might not really enjoy, to satisfy a hungry feeling even though physically, I don't need the food. D. Although I'm not physically hungry, I get a hungry feeling in my mouth that only seems to be satisfied when I eat a food, like sandwich, that fills my mouth. Sometimes, when I eat the food to satisfy my mouth hunger, I then spit the food out so I won't gain weight. Response Group 5: A Group 6 A. I don't feel any guilt or self-hate after I overeat. B. After I overeat, occasionally I feel guilt or self-hate. C. Almost all the time I experience strong guilt or self-hate after I overeat. Response Group 6: B Group 7 A. I don't lose total control of my eating when dieting even after periods when I overeat. B. Sometimes when I eat a forbidden food on a diet, I feel like I blew it and eat even more. C. Frequently, I have the habit of saying to myself, I've blown it now, why not go all the way, when I overeat on a diet. When that happens I eat more. D. I have a regular habit of starting a strict diets for myself but I break the diets by going on an eating binge. My life seems to be either a feast or famine. Response Group 7: A Group 8 A. I rarely eat so much food that I feel uncomfortably stuffed afterwards. B. Usually about once a month, I each such a quantity of food, I end up feeling very stuffed. C. I have regular periods during the month when I eat large amounts of food, either at mealtime or at snacks. D. I eat so much food that I regularly feel quite uncomfortable after eating and sometimes a bit nauseous. Response Group 8: A Group 9 A. My level of calorie intake does not go up very high or go down very low on a regular basis. B. Sometimes after I overeat, I will try to reduce my caloric intake to almost nothing to compensate for the excess calories I've eaten. C. I have a regular habit of overeating during the night. It seems that my rou michael is not to be hungry in the morning but overeat in the evening. D. In my adult years, I have had week-long periods where I practically starve myself. This follows periods when I overeat. It seems I live a life of either feast or famine. Response Group 9: B Group 10 A. I usually am able to stop eating when I want to. I know when enough is enough. B. Every so often, I experience a compulsion to eat which I can't seem to control. C. Frequently, I experience strong urges to eat which I seem unable to control, but at other times I can control my eating urges. D. I feel incapable of controlling urges to eat. I have a fear of not being able to stop eating voluntarily. Response Group 10: A Group 11 A. I don't have any problem stopping eating when I feel full. B. I usually can stop eating when I feel full but occasionally overeat leaving me feeling uncomfortably stuffed. C. I have a problem stopping eating once I start and usually I feel uncomfortably stuffed after I eat a meal. D. Because I have a problem not being able to stop eating when I want, I sometimes have to induce vomiting to relieve my stuffed feeling. Response Group 11: C Group 12 A. I seem to eat just as much when I'm with others, Family social gatherings as when I'm by myself. B. Sometimes, when I'm with other persons, I don't eat as much as I want to eat because I'm self-conscious about my eating. C. Frequently, I eat only a small amount of food when others are present, because I'm very embarrassed about my eating. D. I feel so ashamed about overeating that I pick times to overeat when I know no one will see me. I feel like a closet eater. Response Group 12: A Group 13 A. I eat three meals a day with only an occasional between meal snack. B. I eat 3 meals a day, but I also normally snack between meals. C. When I am snacking heavily, I get in the habit of skipping regular meals. D. There are regular periods when I seem to be continually eating, with no planned meals. Response Group 13: A Group 14 A. I don't think much about trying to control unwanted eating urges. B. At least some of the time, I feel my thoughts are pre-occupied with trying to control my eating urges. C. I feel that frequently I spend much time thinking about how much I ate or about trying not to eat anymore. D. It seems to me that most of my waking hours are pre-occupied by thoughts about eating or not eating. I feel like I'm constantly struggling not to eat. Response Group 14: C Group 15 A. I don't think about food a great deal. B. I have strong craving for food but they last only for brief periods of time. C. I have days when I can't seem to think about anything else but food. D. Most of my days seem to be pre-occupied with thoughts about food. I feel like I live to eat. Response Group 15: A Group 16 A. I usually know whether or not I'm physically hungry. I take the right portion of food to satisfy me. B. Occasionally, I feel uncertain about knowing whether or not I'm physically hungry. A these times it's hard to know how much food I should take to satisfy me. C. Even though I might know how many calories I should eat, I don't have any idea what is a normal amount of food for me. Response Group 16: B Binge Eating Score: 14 Score less than 17 Minimal Risk Score between 18-26 Moderate Risk Score between 27-46 High Risk Assessment & Plan Assessment & Plan (1) Adjustment disorder: Code(s): F43.20 - Adjustment disorder, unspecified (2) Pre-bariatric surgery psychological evaluation: Code(s): Z71.89 - Other specified counseling Plan Following a comprehensive behavioral health assessment?including review of the Binge Eating Scale, PHQ-9, mental status evaluation, and patient self- report?there are currently no behavioral health contraindications to proceeding with bariatric surgery. The patient demonstrates appropriate insight, motivation, and psychological readiness for the procedure. No active psychiatric symptoms or maladaptive eating behaviors were identified that would impede surgical outcomes at this time. The patient is cleared from a behavioral health perspective to proceed with bariatric surgery and documentation can be submitted for insurance approval as indicated. PT will return for a follow-up behavioral health visit 1?4 weeks postoperatively to monitor psychological adjustment, reinforce coping strategies, and screen for any emerging concerns such as mood changes, adjustment difficulties, or disordered eating patterns. Additional behavioral health support will be provided as needed based on postoperative assessment. Next german: 1-4 weeks PO. Telehealth Telehealth Telehealth Platform: [employer] Location of provider rendering services: other (Home office. [place], [place]) Location of patient: address on file Patient Identification confirmed using: Name, : Yes Telehealth method: voice only Patient verbally consented to treatment: Yes Patient verbally consented to billing insurance company: Yes Patient informed of any privacy concerns related to visit: Yes Minutes spent on Phone/Video with Pt.: 45 Coding Level of Care Code Established Pt Tele Psytx 45 mins (89701) Patient Type Established Diagnoses Adjustment disorder F43.20 Pre-bariatric surgery psychological evaluation Z71.89 Additional Codes PHQ-9 - 05846 - PHQ-9 Billing: Yes ([id number]) Time Spent (min) 45
--- OUTSIDE RECORDS SUMMARY | 2025-05-08 15:24 | XMS_ITS | Patient Health Record ---
Author Organization [facility] Address [address] [place] [address] Support Name Relationship Address Phone Michael Katarina Guarantor Unknown [phone] Allergies No Known Allergies Reason For Referral [...] Insured Coverage Start Date Coverage End Date [place] ATT CLAIMS [address] [place] [address] [id number] Katarina Rodriguez Self - patient is the insured Medications Administered Medication Instructions Date of Administration Dosage Notes Depo 150mg 04/11/2022 Medical (General) History Surgical History Surgery Date(Month/Year) gastric sleeve 2020 Hospitalization History Reason Date(Month/Year) childbirth
--- OUTSIDE RECORDS SUMMARY | 2025-05-08 15:24 | XMS_ITS | Clinical Summary ---
Author Organization [facility] Address [address] [address] Phone Care Team Providers Care Agility Instructor Name Role Phone Unavailable Primary Care Provider [...] 2023 INFLUENZA VACCINE (#1) 2025 COVID-19 VACCINE (2024-2 6 season) 2025 Adult Td,Tdap Booster 02/28/2026 02/29/2016 [...] It is not the complete legal health record.[facility]
--- OUTSIDE RECORDS SUMMARY | 2025-05-08 15:24 | XMS_ITS | Clinical Summary ---
Author Organization [facility] Address [address] [place] [address] Phone Care Team Providers Care Wool Mixer Name Role Phone Rosi Coelho MD Primary [...] mgmt of thyroid. Labs drawn today at [facility] Assessment & Plan (12/12/2024 1:33 PM EDT): [...] BMI of 50 by 28wks transfer to [facility] DVT prophylaxis- Lovenox if CS and BMI [...] BMI of 50 by 28wks transfer to [facility] DVT prophylaxis- Lovenox if CS and BMI >35 Supervision of high-risk 10/22/2023 09/09/2024 Overview (04/17/2024): 1. [facility] site: [address]) 2. Delivery site: [facility] 3. [facility]: 4. Dating criteria: 1st trimester ultrasound only 5. Blood type: Lab Results Component Value Date BLDTYPE O POSITIVE 10/22/2023 6. Genetic screening: Date: Result: Low risk female; Horizon screen negative' AFP screen negative 6. GBS: Date: 7. FOB name: Singh Blackwood [facility] [birth year], 8. Plans A. Epidural or [...] BMI of 50 by 28wks transfer to [facility] DVT prophylaxis- Lovenox if CS and BMI >35 Supervision of high-risk 10/22/2023 05/18/2024 Overview (05/18/2024): 1. [facility] site: [address]) 2. Delivery site: [facility] 3. Mobile Mommas: 4. Dating criteria: 1st trimester ultrasound only 5. Blood type: Lab Results Component Value Date BLDTYPE O POSITIVE 10/22/2023 6. Genetic screening: Date: Result: Low risk female; Horizon screen negative' AFP screen negative 6. GBS: Date: 7. FOB name: Singh Blackwood [facility] [birth year], 8. Plans A. Epidural or other pain management - B. Labor support identified - C. Tdap - Date:, 02/25/2024 Flu - Date: D. Breast or Bottle feed: E. Baby's name - F. Circumcision - 9. Hospital Course: Hypothyroid 02/27/2015 05/18/2024 Overview (05/18/2024): Pt noncompliant with adult medicine and mgmt of thyroid. Labs drawn today at [facility] Lab Results Component Value Date TSH 6.03 [...] 02/13/2025 11:59 PM EDT Hospital Encounter [facility] [address] [phone] Anderson Edmonds MD Iron deficiency anemia due to chronic blood loss (Primary Dx) Discharge Disposition: Home or Self Care from Last 3 Months Immunizations Immunization Administration Dates Next Due Hepatitis B (Zpxliju-A-Cdzjy , Recombivax HB-Adult) 19yo and older 08/12/2011,06/17/2011 [...] for det ection of COVID-19 virus; COMMENT: [facility] 02/21/21 Type 2 diabetes mellitus wit [...] ASA 162 mg daily at 12w thro h delivery Referral for NIPT if desired Detailed US 3rd trimester growth US if maternal age 40 or greater Weekly NST at 36 weeks Offer delivery at 39 weeks if maternal age 40 or greater GBS (group B Streptococcus c funmilayo), +RV culture, currently 04/17/2024 Maternal obesity, antepartum [...] Supervision of high-risk 10/22/2023 1. [facility] site: [address]) 2. Delivery site: [facility] 3. Mobile Mommas: 4. Dating criteria: 1st [...] your loved ones. For example, child care centre manager or elderly care for an older adult? [...] Livin g 8 9 Brad Coats Delivery Location:[facility] Comments:admitted for ROM, pt recieved terb to stop labor x 3 since 32 weeks 2004 36w 5d F Vag-S pont None N Livin g Abeba segovia md Complications:Pre-eclampsia, Carrier of group B Streptococcus Delivery Location:[facility] Comments:IOL d/t Pre-E 2023 Term 39w 6d 0h 01m 0h 01m 3670 g (129.5 oz) F CS-LT ranv N Livin g 8 9 Kash Meena aguilar MD Complications: Intolera nce Delivery Location:[facility] ([facility]) Last Filed Vital Signs [...] Care Team (Late st Contact Info) Description 08/03/2025 8:30 AM EST Consult Bariatric Surgery - [place] [address] [facility] [address] [place] [address] Caitlyn Rodriguez MD [facility] [place] [address] Health Maintenance Due Date Last Done Comments Breast Cancer Screening 1983 HPV Vaccines (1 - 3-dose SCDM series) 12/18/2010 HIV Screening 06/21/2022 COVID-19 Vaccine (2023- season) 2025 Influenza Vaccine (#1) 2025 , [...] 11:35 AM EST Elevated glucose tolerance test HM HPV Routine 11/05/2023 DEPRESSION SCREENING Routine 10/22/2023 HEPATITIS C SCREENING Routine 10/22/2023 from Last 3 Months or Most Recently Relevant to Health Maintenance Results * Lipid panel with reflex to direct LDL (09/07/2024 11:35 AM EST) Cholesterol 174 0 - 200 mg/dL LAB CHEMISTRY METHOD 09/07/2024 4:04 PM [facility] Triglycerides 54 0 - 150 mg/dL LAB CHEMISTRY METHOD 09/07/2024 4:04 PM [facility] HDL 69 >=40 mg/dL LAB CHEMISTRY METHOD 09/07/2024 4:04 PM [facility] LDL Calculated 94 0 - 100 mg/dL LAB CHEMISTRY METHOD 09/07/2024 4:04 PM [facility] VLDL Cholesterol Dannie 10.8 mg/dL LAB CHEMISTRY METHOD 09/07/2024 4:04 PM [facility] Non HDL Chol. (LDL+VLDL) 105 <145 mg/dL LAB CHEMISTRY METHOD 09/07/2024 4:04 PM [facility] Chol/HDL Ratio 2.5 0.0 - 4.4 LAB CHEMISTRY METHOD 09/07/2024 4:04 PM [facility] Blood Venous blood specimen / Unknown Venipuncture / Unknown 09/07/2024 11:35 AM EST 09/07/2024 11:35 AM EST Rosi Coelho MD LAB BLOOD ORDERA BLES Final Result [facility] [address] [place] [address], [place] [phone] * Cervical Cancer Screening: HPV (11/05/2023) Pathologist [facility] Cervical Cancer Screening: HPV NEGATIVE, ABSTRACTED Historical Provider HEALTH MAINTENANCE Final Result * Depression Screening (10/22/2023) Pathologist [facility] Depression Screening ABSTRACTED Historical Provider HEALTH MAINTENANCE Final Result * Hepatitis C Screening (10/22/2023) Pathologist [facility] Hepatitis C Screening ABSTRACTED Historical Provider HEALTH MAINTENANCE Final Result from Last 3 Months or Most Recently Relevant to Health Maintenance Insurance [employer] Advance Directives * Full Code [...] currently active code status orders. Care Teams Wool Mixer Relationship Specialty Start Date End Date Rosi Coelho MD [address] [facility] [place] PCP - General Internal Medicine 02/04/22
== END 2025-05-08 13:08 | disposition home or self-care (01) ==
LOC: HO.HBST 11:56
PROVIDERS: PCP Family Medicine; Visit Provider Counselor Mental Health
DX: F43.20 Adjustment disorder, unspecified (principal); Z71.89 Other specified counseling
CPT/HCPCS: 90834

== ENCOUNTER 2025-06-15 10:12 | Outpatient (REF) | payer OTHER, SELFPAY ==
--- NOTE | ~2025-06-15 | US_ITS ---
EXAMINATION: US COMPLETE ABDOMEN WITH LIVER ELASTOGRAPHY CLINICAL INFORMATION: E66.01 - Morbid (severe) obesity due to excess calories COMPARISON: None available. TECHNIQUE: Real-time imaging of the abdominal viscera. Noninvasive ultrasound liver fibrosis assessment is performed using Rasheeda ElastPQ point quantification shear wave elastography (pSWE) with a C5-2 MHz transducer. Multiple elastography samples are obtained. FINDINGS: PANCREAS: The visualized pancreatic head and body are normal in appearance. The remainder of the pancreas is obscured from visualization by the overlying bowel gas. ABDOMINAL AORTA: No aortic aneurysm is seen. INFERIOR VENA CAVA: Visualized portions are normal. LIVER: The liver demonstrates diffuse increased echogenicity. The right lobe measures 16 cm in length. The left lobe measures 10 cm in length. Main portal vein is patent with a normal direction flow and a continuous venous waveform. Shear wave liver elastography median stiffness is 1.2 m/s (reference: normal median stiffness is 1.3 m/s or less). IQR/median stiffness to assess sampling precision is 0.19 (reference: good quality data set is IQR/median stiffness of 0.3 or less). GALLBLADDER: Gallbladder surgically absent. COMMON BILE DUCT: Normal in caliber measuring 0.5-0.6 cm in diameter. RIGHT KIDNEY: No hydronephrosis. No renal calculi or focal parenchymal lesions. The kidney measures 11 cm in maximum dimension. LEFT KIDNEY: No hydronephrosis. No renal calculi or focal parenchymal lesions. The kidney measures 11.6 cm in maximum dimension. SPLEEN: Unremarkable. The spleen measures 10 cm in maximum dimension. FREE FLUID: None seen. US/US abdomen comp w elastography IMPRESSION: 1. Hepatic steatosis 2. Liver elastography: Measurements are consistent with a high probability of normal liver stiffness. REFERENCE: Society of Radiologists in Ultrasound Liver Stiffness Thresholds (2020): LIVER STIFFNESS THRESHOLDS: *Liver Stiffness equal or less than 1.3 m/s: High probability of being normal. *Liver Stiffness less than 1.7 m/s: In the absence of other known clinical signs, rules out compensated advanced chronic liver disease. *Liver Stiffness 1.7-2.1 m/s: Suggestive of compensated advanced chronic liver disease but need further test for confirmation. *Liver Stiffness over 2.1 m/s: Rules in compensated advanced chronic liver disease. *Liver Stiffness over 2.4 m/s: Suggestive of clinically significant portal hypertension. QUALITY OF DATA SET: *IQR/Median value equal or less than 0.15 implies a quality data set. *IQR/Median value over 0.15 implies a poor quality data set. SIGNIFICANT CHANGE FROM PRIOR EXAM: Significant change if liver stiffness measurement is 10% or greater from prior exam. OTHER CONSIDERATIONS: The stage of liver fibrosis may be overestimated in the setting of acute hepatitis, liver inflammation, elevated liver function tests, hepatic vascular congestion, obstructive cholestasis, non-fasting state, and infiltrative diseases such as amyloidosis and lymphoma. In some patients with NAFLD, the liver stiffness thresholds for compensated advanced chronic liver disease may be lower. In causes other than viral hepatitis and NAFLD, liver stiffness thresholds are not well established. Electronically signed by: Sekou James MD 06/15/2025 10:48 AM [facility]
--- OUTSIDE RECORDS SUMMARY | 2025-06-15 12:16 | XMS_ITS | Encounter Summary ---
Author Organization [employer] [facility] Prior to 05/13/2024 Address [address] [place] [address] Care Team Providers Care Purchase Order Checker Name Role Phone Rosi Coelho MD Primary Care Provider + Encounter Details Date Type Department Care Team Description 12/04/2023 Orders Only Medical Records [address] [place] [address] Mabel Craig, [employer] [address] [place] [address] Social History Tobacco Use Types [...] on filedocumented in this encounter Care Teams Purchase Order Checker Relationship Specialty Start Date End Date Rosi Coelho MD [address] [place] [address] PCP - General Internal Medicine 02/04/22 documented as of this encounter
--- OUTSIDE RECORDS SUMMARY | 2025-06-15 12:16 | XMS_ITS | Encounter Summary ---
Author Organization [employer] [facility] Prior to 05/13/2024 Address [address] [place] [address] Care Team Providers Care Auto Radio Mechanic Name Role Phone Rosi Coelho MD Primary Care Provider + Encounter Details Date Type Department Care Team Description 09/23/2023 Pt. Non Urgent Medical Question OBGYN - 271 [facility] [address] [place] [address] Mabel Craig, [facility] 175 [place] [address] Social History Tobacco Use Types [...] filedocumented in this encounter Care Teams Auto Radio Mechanic Relationship Specialty Start Date End Date Rosi Coelho MD [address] [place] [address] PCP - General Internal Medicine 02/04/22 documented as of this encounter
--- OUTSIDE RECORDS SUMMARY | 2025-06-15 12:16 | XMS_ITS | Encounter Summary ---
Author Organization [employer] [facility] Prior to 05/13/2024 Address [address] [place] [address] Care Team Providers Care Cloth Winding Supervisor Name Role Phone Cory Rubalcava MD Unavailable Unavailable Rosi Coelho MD Primary Care Provider + Encounter Details Date Type Department Care Team Description 10/31/2019 Orders Only General Surgery - [place] 175 [facility] [address] [place] [address] Caitlyn Rodriguez MD [address] [place] [address] [address] [place], [place] [id number] Social History Tobacco Use Types Packs/Day Years [...] on filedocumented in this encounter Care Teams Cloth Winding Supervisor Relationship Specialty Start Date End Date Rosi Coelho MD [address] [place] [address] PCP - General Internal Medicine 02/04/22 Cory Rubalcava MD Internal Medicine 04/28/19 02/03/22 documented as of this encounter
--- OUTSIDE RECORDS SUMMARY | 2025-06-15 12:16 | XMS_ITS | Encounter Summary ---
Author Organization [facility] [facility] Prior to 05/13/2024 Address [address] [place] [address] Care Team Providers Care Weaving Teacher Name Role Phone Cory Rubalcava MD Primary Care Provider Cory Oliva MD Unavailable Unavailable Rosi Coelho MD Primary Care Provider + Encounter Details Date Type Department Care Team Description 03/21/2019 Pt. Non Urgent Medic al Question Physiatry - [address] [address] Orville De La Rosa PA-C Social History [...] on filedocumented in this encounter Care Teams Weaving Teacher Relationship Specialty Start Date End Date Cory Rubalcava MD PCP - General Internal Medicine 02/27/15 04/27/19 Rosi Coelho MD [address] [place] [address] PCP - General Internal Medicine 02/04/22 Cory Rubalcava MD Internal Medicine 04/28/19 02/03/22 documented as of this encounter
--- OUTSIDE RECORDS SUMMARY | 2025-06-15 12:16 | XMS_ITS | Encounter Summary ---
Author Organization [employer] [facility] Prior to 05/13/2024 Address [address] [place] [address] Care Team Providers Care Dispatcher Clerk Name Role Phone Cory Rubalcava MD Primary Care Provider Cory Oliva MD Unavailable Unavailable Rosi Coelho MD Primary Care Provider + Encounter Details Date Type Department Care Team Description 12/12/2018 Pt. Non Urgent Medic al Question Physiatry - [address] [address] Orville De La Rosa PA-C Social History [...] on filedocumented in this encounter Care Teams Dispatcher Clerk Relationship Specialty Start Date End Date Cory Rubalcava MD PCP - General Internal Medicine 02/27/15 04/27/19 Rosi Coelho MD [address] [place] [address] PCP - General Internal Medicine 02/04/22 Cory Rubalcava MD Internal Medicine 04/28/19 02/03/22 documented as of this encounter
--- OUTSIDE RECORDS SUMMARY | 2025-06-15 12:16 | XMS_ITS | Encounter Summary ---
Author Organization [employer] [facility] Prior to 05/13/2024 Address [address] [place] [address] Care Team Providers Care Visual Effects Artist Name Role Phone Rosi Coelho MD Primary Care Provider + Encounter Details Date Type Department Care Team Description 04/12/2024 Pt. Non Urgent Medical Question OBGYN - 271 [facility] [address] [place] [address] Mabel Craig, [facility] 175 [place] [address] Social [...] on filedocumented in this encounter Care Teams Visual Effects Artist Relationship Specialty Start Date End Date Rosi Coelho MD [address] [place] [address] PCP - General Internal Medicine 02/04/22 documented as of this encounter
--- OUTSIDE RECORDS SUMMARY | 2025-06-15 12:16 | XMS_ITS | Encounter Summary ---
Author Organization [employer] [facility] Prior to 05/13/2024 Address [address] [place] [address] Care Team Providers Care Breed To Wean Production Technician Name Role Phone Cory Rubalcava MD Primary Care Provider Cory Oliva MD Unavailable Unavailable Rosi Coelho MD Primary Care Provider + Reason for Visit * Reason Onset Date Comments REFERRAL 01/27/2019 Asthma/ COPD/ Di abetes Encounter Details Date Type Department Care Team Description 01/27/2019 Telephone Respiratory and Diabetes Medicaid/ACO Pharmacist [address] [place] [address] Cory Rubalcava MD REFERRAL (Asthma/ COPD/ Diabetes) [...] Please consider referring this patient to the [facility] Asthma/ COPD/ Diabetes Clinic located in [place] for further management of their diabetes. Thank you. documented in this encounter Plan of Treatment Not on file documented as of this encounter Visit Diagnoses Not on filedocumented in this encounter Care Teams Breed To Wean Production Technician Relationship Specialty Start Date End Date Cory Rubalcava MD PCP - General Internal Medicine 02/27/15 04/27/19 Rosi Coelho MD [address] [place] [address] PCP - General Internal Medicine 02/04/22 Cory Rubalcava MD Internal Medicine 04/28/19 02/03/22 documented as of this encounter
--- OUTSIDE RECORDS SUMMARY | 2025-06-15 12:16 | XMS_ITS | Encounter Summary ---
Author Organization [facility] [facility] Prior to 05/13/2024 Address [address] [place] [address] Care Team Providers Care Gallery Director Name Role Phone Rosi Coelho MD Primary Care Provider + Encounter Details Date Type Department Care Team Description 11/25/2023 Pt. Non Urgent Medical Question OBGYN - 271 [facility] 271 [place] [address] Mabel Craig, [facility] 175 [place] [address] Social History Tobacco Use Types [...] on filedocumented in this encounter Care Teams Gallery Director Relationship Specialty Start Date End Date Rosi Coelho MD [address] [place] [address] PCP - General Internal Medicine 02/04/22 documented as of this encounter
--- OUTSIDE RECORDS SUMMARY | 2025-06-15 12:16 | XMS_ITS | Encounter Summary ---
Author Organization [employer] [facility] Prior to 05/13/2024 Address [address] [place] [address] Care Team Providers Care Floor Representative Name Role Phone Rosi Coelho MD Primary Care Provider + Encounter Details Date Type Department Care Team Description 02/23/2024 Pt. Non Urgent Medical Question OBGYN - 271 [facility] 271 [place] [address] Mabel Craig, [facility] 175 [place] [address] Social History Tobacco Use Types [...] on filedocumented in this encounter Care Teams Floor Representative Relationship Specialty Start Date End Date Rosi Coelho MD [address] [place] [address] PCP - General Internal Medicine 02/04/22 documented as of this encounter
--- OUTSIDE RECORDS SUMMARY | 2025-06-15 12:16 | XMS_ITS | Encounter Summary ---
Author Organization [employer] [facility] Prior to 05/13/2024 Address [address] [place] [address] Care Team Providers Care Meter Record Clerk Name Role Phone Cory Rubalcava MD Unavailable Unavailable Rosi Coelho MD Primary Care Provider + Encounter Details Date Type Department Care Team Description 01/16/2020 Hospital Medical Records [address] [place] [address] Caitlyn Rodriguez MD [address] [place] [address] [address] [place] [address] Social History Tobacco Use Types Packs/Day Years [...] on filedocumented in this encounter Care Teams Meter Record Clerk Relationship Specialty Start Date End Date Rosi Coelho MD [address] [place] [address] PCP - General Internal Medicine 02/04/22 Cory Rubalcava MD Internal Medicine 04/28/19 02/03/22 documented as of this encounter
--- OUTSIDE RECORDS SUMMARY | 2025-06-15 12:16 | XMS_ITS | Encounter Summary ---
Author Organization [employer] [facility] Prior to 05/13/2024 Address [address] [place] [address] Care Team Providers Care Case Liner Name Role Phone Cory Rubalcava MD Unavailable Unavailable Rosi Coelho MD Primary Care Provider + Encounter Details Date Type Department Care Team Description 01/18/2020 Hospital Medical Records [address] [place] [address] [facility] Social History Tobacco Use Types Packs/Day Years [...] on filedocumented in this encounter Care Teams Case Liner Relationship Specialty Start Date End Date Rosi Coelho MD [address] [place] [address] PCP - General Internal Medicine 02/04/22 Cory Rubalcava MD Internal Medicine 04/28/19 02/03/22 documented as of this encounter
--- OUTSIDE RECORDS SUMMARY | 2025-06-15 12:16 | XMS_ITS | Encounter Summary ---
Author Organization [employer] [facility] Prior to 05/13/2024 Address [address] [place] [address] Care Team Providers Care Revenue Accountant Name Role Phone Rosi Coelho MD Primary Care Provider + Encounter Details Date Type Department Care Team Description 10/22/2023 Pt. Non Urgent Medical Question OBGYN - 271 [facility] 271 [place] [address] Mabel Craig, [facility] 175 [place] [address] Social History Tobacco Use Types [...] on filedocumented in this encounter Care Teams Revenue Accountant Relationship Specialty Start Date End Date Rosi Coelho MD [address] [place] [address] PCP - General Internal Medicine 02/04/22 documented as of this encounter
--- OUTSIDE RECORDS SUMMARY | 2025-06-15 12:16 | XMS_ITS | Encounter Summary ---
Author Organization [employer] [facility] Prior to 05/13/2024 Address [address] [place] [address] Care Team Providers Care Fan Installer Name Role Phone Rosi Coelho MD Primary Care Provider + Encounter Details Date Type Department Care Team Description 12/02/2023 Refill OBGYN - 271 [facility] 271 [place] [address] Mabel Craig, [facility] 175 [place] [address] Social History Tobacco Use Types [...] on filedocumented in this encounter Care Teams Fan Installer Relationship Specialty Start Date End Date Rosi Coelho MD [address] [place] [address] PCP - General Internal Medicine 02/04/22 documented as of this encounter
--- OUTSIDE RECORDS SUMMARY | 2025-06-15 12:16 | XMS_ITS | Encounter Summary ---
Author Organization [employer] [facility] Prior to 05/13/2024 Address [address] [place] [address] Care Team Providers Care Physical Plant Manager Name Role Phone Rosi Coelho MD Primary Care Provider + Encounter Details Date Type Department Care Team Description 03/04/2024 Pt. Non Urgent Medical Question OBGYN - 271 [facility] 271 [place] [address] Mabel Craig, [facility] 175 [place] [address] Social History Tobacco Use Types [...] on filedocumented in this encounter Care Teams Physical Plant Manager Relationship Specialty Start Date End Date Rosi Coelho MD [address] [place] [address] PCP - General Internal Medicine 02/04/22 documented as of this encounter
--- OUTSIDE RECORDS SUMMARY | 2025-06-15 12:16 | XMS_ITS | Patient Health Record ---
Author Organization [employer] Address [address] [place] [address] Support Name Relationship Address Phone Michael Katarina Guarantor Unknown [phone] Allergies No Known Allergies Reason For Referral [...] Insured Coverage Start Date Coverage End Date [place] ATT CLAIMS [address] [place] [address] [id number] Katarina Rodriguez Self - patient is the insured Medications Administered Medication Instructions Date of Administration Dosage Notes Depo 150mg 04/11/2022 Medical (General) History Surgical History Surgery Date(Month/Year) gastric sleeve 2020 Hospitalization History Reason Date(Month/Year) childbirth
--- OUTSIDE RECORDS SUMMARY | 2025-06-15 12:16 | XMS_ITS | Encounter Summary ---
Author Organization [facility] Prior to 05/13/2024 Address [address] [place] [address] Care Team Providers Care Truss Puller Helper Name Role Phone Cory Rubalcava MD Unavailable Unavailable Rosi Coelho MD Primary Care Provider + Encounter Details Date Type Department Care Team Description 01/26/2020 Pt. Non Urgent Medical Question General Surgery - [place] [address] [facility] [address] [place] [address] Caitlyn Rodriguez MD [address] [facility] [address] [address] [place], [place] [phone] Social History Tobacco Use Types Packs/Day Years [...] Progress Notes * Kate Kapoor M.A. - 01/26/2020 2:49 PM EDTFrom: Kenny Rodriguez To: Caitlyn Rodriguez MD Sent: 01/26/2020 2:41 PM EDT Subject: Hi Hi this kenny rodriguez and I'm on stage 3 and I was wondering if I can have mash potatoes or tuna fish documented in this encounter Plan of Treatment Not on file documented as of this encounter Visit Diagnoses Not on filedocumented in this encounter Care Teams Truss Puller Helper Relationship Specialty Start Date End Date Rosi Coelho MD [address] [place] [address] PCP - General Internal Medicine 02/04/22 Cory Rubalcava MD Internal Medicine 04/28/19 02/03/22 documented as of this encounter
--- OUTSIDE RECORDS SUMMARY | 2025-06-15 12:16 | XMS_ITS | Encounter Summary ---
Author Organization [employer] [facility] Prior to 05/13/2024 Address [address] [place] [address] Care Team Providers Care Front Man Name Role Phone Cory Rubalcava MD Primary Care Provider Cory Oliva MD Unavailable Unavailable Rosi Coelho MD Primary Care Provider + Reason for Visit * Reason Onset Date Comments Mychart Rx Refill 02/20/2019 Encounter Details Date Type Department Care Team Description 02/20/2019 Refill Adult Medicine [address] [address] Uziel Palmer NP Mychart Rx Refill Social [...] MG tablet [Uziel Palmer NP] Preferred pharmacy: [id number] [place] Comment: Medication renewals requested in this message routed to other providers: levothyroxine (SYNTHROID, LEVOTHROID) 150 MCG tablet [Cory Rubalcava MD] documented in this encounter Plan of Treatment Not on file documented as of this encounter Visit Diagnoses Not on filedocumented in this encounter Care Teams Front Man Relationship Specialty Start Date End Date Cory Rubalcava MD PCP - General Internal Medicine 02/27/15 04/27/19 Rosi Coelho MD [address] [place] [address] PCP - General Internal Medicine 02/04/22 Cory Rubalcava MD Internal Medicine 04/28/19 02/03/22 documented as of this encounter
--- OUTSIDE RECORDS SUMMARY | 2025-06-15 12:16 | XMS_ITS | Encounter Summary ---
Author Organization [employer] [facility] Prior to 05/13/2024 Address [address] [place] [address] Care Team Providers Care Whiteprinting Machine Operator Name Role Phone Rosi Coelho MD Primary Care Provider + Encounter Details Date Type Department Care Team Description 12/04/2023 Pt. Non Urgent Medical Question OBGYN - 271 [facility] 271 [place] [address] Mabel Craig, [facility] 175 [place] [address] Social History Tobacco Use Types [...] on filedocumented in this encounter Care Teams Whiteprinting Machine Operator Relationship Specialty Start Date End Date Rosi Coelho MD [address] [place] [address] PCP - General Internal Medicine 02/04/22 documented as of this encounter
--- OUTSIDE RECORDS SUMMARY | 2025-06-15 12:16 | XMS_ITS | Encounter Summary ---
Author Organization [facility] Prior to 05/13/2024 Address [address] [place] [address] Care Team Providers Care Lithographers Printer Name Role Phone Cory Rubalcava MD Primary Care Provider Cory Oliva MD Unavailable Unavailable Rosi Coelho MD Primary Care Provider + Encounter Details Date Type Department Care Team Description 01/28/2019 Pt. Non Urgent Medical Question General Surgery - [place] [address] [facility] [address] [place] [address] Caitlyn Rodrgiuez MD [address] [place] [address] [address] [place], [place] [phone] Social History Tobacco Use Types Packs/Day Years [...] appointment please and i had a family [id number] documented in this encounter Plan of Treatment Not on file documented as of this encounter Visit Diagnoses Not on filedocumented in this encounter Care Teams Lithographers Printer Relationship Specialty Start Date End Date Cory Rubalcava MD PCP - General Internal Medicine 02/27/15 04/27/19 Rosi Coelho MD [address] [place] [address] PCP - General Internal Medicine 02/04/22 Cory Rubalcava MD Internal Medicine 04/28/19 02/03/22 documented as of this encounter
--- OUTSIDE RECORDS SUMMARY | 2025-06-15 12:16 | XMS_ITS | Encounter Summary ---
Author Organization [facility] Prior to 05/13/2024 Address [address] [place] [address] Care Team Providers Care Plexiglas Former Name Role Phone Cory Rubalcava MD Unavailable Unavailable Rosi Coelho MD Primary Care Provider + Encounter Details Date Type Department Care Team Description 09/30/2019 Pt. Non Urgent Medical Question General Surgery - [place] [address] [facility] [address] [place] [address] Caitlyn Rodriguez MD [address] [place], [place] [phone] Social History Tobacco Use Types Packs/Day Years [...] as of this encounter Progress Notes * Jessika Robbins M.A. - 09/30/2019 8:52 AM EDTFrom: Katarina Rodriguez To: Caitlyn Rodriguez MD Sent: 09/30/2019 12:16 AM EDT Subject: Hello I'm writing to see if I'm going to get a call back about my surgery to see if it was approve or notis about to be 3 weeks documented in this encounter Plan of Treatment Not on file documented as of this encounter Visit Diagnoses Not on filedocumented in this encounter Care Teams Plexiglas Former Relationship Specialty Start Date End Date Rosi Coelho MD [address] [place] [address] PCP - General Internal Medicine 02/04/22 Cory Rubalcava MD Internal Medicine 04/28/19 02/03/22 documented as of this encounter
--- OUTSIDE RECORDS SUMMARY | 2025-06-15 12:16 | XMS_ITS | Encounter Summary ---
Author Organization [facility] Prior to 05/13/2024 Address [address] [place] [address] Care Team Providers Care Mine Exploration Engineer Name Role Phone Cory Rubalcava MD Primary Care Provider Cory Oliva MD Unavailable Unavailable Rosi Coelho MD Primary Care Provider + Encounter Details Date Type Department Care Team Description 01/01/2019 Refill Adult Medicine [address] [address] Uziel Palmer NP Social History Tobacco Use Types Packs/Day Years [...] encounter Miscellaneous Notes * Telephone Encounter - Sasha Tatum M.A. - 01/03/2019 7:15 AM EDT Last office visit 10/12/18 Next office visit 01/10/19 Last filled on 03/25/18 for 30 tabs. Will you refill? * Telephone Encounter - Sasha Tatum M.A. - 01/03/2019 7:15 AM EDTFrom: Katarina Rodriguez To: Uziel Palmer NP Sent: 01/01/2019 2:54 AM EDT Subject: Medication Renewal Request Original authorizing provider: NOEMÍ Patricia would like a refill of the following medications: hydrOXYzine (ATARAX) 25 MG tablet [Uziel Palmer NP] Preferred pharmacy: [id number] [place] Comment: Medication renewals requested in this message routed to other providers: levothyroxine (SYNTHROID, LEVOTHROID) 150 MCG tablet [Nicky Dennison APRN] documented in this encounter Plan of Treatment Not on file documented as of this encounter Visit Diagnoses Not on filedocumented in this encounter Care Teams Mine Exploration Engineer Relationship Specialty Start Date End Date Cory Rubalcava MD PCP - General Internal Medicine 02/27/15 04/27/19 Rosi Coelho MD [address] [place] [address] PCP - General Internal Medicine 02/04/22 Cory Rubalcava MD Internal Medicine 04/28/19 02/03/22 documented as of this encounter
--- OUTSIDE RECORDS SUMMARY | 2025-06-15 12:16 | XMS_ITS | Encounter Summary ---
Author Organization [facility] Prior to 05/13/2024 Address [address] [place] [address] Care Team Providers Care Applied Technologist Name Role Phone Rosi Coelho MD Primary Care Provider + Encounter Details Date Type Department Care Team Description 10/26/2023 Transfer Records Medical Records [address] [place] [address] [facility] Social History Tobacco Use Types Packs/Day Years [...] on filedocumented in this encounter Care Teams Applied Technologist Relationship Specialty Start Date End Date Rosi Coelho MD [address] [place] [phone] PCP - General Internal Medicine 02/04/22 documented as of this encounter
--- OUTSIDE RECORDS SUMMARY | 2025-06-15 12:16 | XMS_ITS | Encounter Summary ---
Author Organization [facility] Prior to 05/13/2024 Address [address] [place] [address] Care Team Providers Care Aviation Technician Aircraft Name Role Phone Rosi Coelho MD Primary Care Provider + Reason for Visit * Reason Onset Date Comments APPOINTMENT 09/25/2023 OB w/u & IP Encounter Details Date Type Department Care Team Description 09/25/2023 Telephone OBGYN - [address] [facility] [address] [place] [address] Mabel Craig, DESTINEY [address] [place] [address] APPOINTMENT (OB w/u & IP) Social History Tobacco Use Types Packs/Day Years [...] encounter Miscellaneous Notes * Telephone Encounter - Arabella Painting - 09/25/2023 1:55 PM EDT Pt called back, appts scheduled. * Telephone Encounter - Jamila Roach R.N. - 09/25/2023 1:18 PM EDT Left message to call. KEYLA 05/19/24 * Telephone Encounter - Jamila Roach R.N. - 09/25/2023 1:18 PM EDT ----- Message from Mabel Craig CNM sent at 09/25/2023 1:15 PM EDT ----- Early preganncy ,please arrange nurse intake and PE documented in this encounter Plan of Treatment Not on file documented as of this encounter Visit Diagnoses Not on filedocumented in this encounter Care Teams Aviation Technician Aircraft Relationship Specialty Start Date End Date Rosi Coelho MD [address] [place] [phone] PCP - General Internal Medicine 02/04/22 documented as of this encounter
--- OUTSIDE RECORDS SUMMARY | 2025-06-15 12:17 | XMS_ITS | Clinical Summary ---
Author Organization [facility] Address [address] [place] [address] Phone Care Team Providers Care Color Paste Mixing Supervisor Name Role Phone Rosi Coelho MD [...] mgmt of thyroid. Labs drawn today at metalizing supervisor Assessment & Plan (12/12/2024 1:33 PM EDT): [...] BMI of 50 by 28wks transfer to [facility] DVT prophylaxis- Lovenox if CS and BMI [...] BMI of 50 by 28wks transfer to [facility] DVT prophylaxis- Lovenox if CS and BMI >35 Supervision of high-risk 10/22/2023 09/09/2024 Overview (04/17/2024): 1. [facility] site: [address]) 2. Delivery site: [facility] 3. [facility] Mommas: 4. Dating criteria: 1st trimester ultrasound only 5. Blood type: Lab Results Component Value Date BLDTYPE O POSITIVE 10/22/2023 6. Genetic screening: Date: Result: Low risk female; Horizon screen negative' AFP screen negative 6. GBS: Date: 7. FOB name: Singh Blackwood [facility] [birth year], 8. Plans A. Epidural or other [...] BMI of 50 by 28wks transfer to [facility] DVT prophylaxis- Lovenox if CS and BMI >35 Supervision of high-risk 10/22/2023 05/18/2024 Overview (05/18/2024): 1. [facility] site: [address]) 2. Delivery site: [facility] 3. Mobile Mommas: 4. Dating criteria: 1st trimester ultrasound only 5. Blood type: Lab Results Component Value Date BLDTYPE O POSITIVE 10/22/2023 6. Genetic screening: Date: Result: Low risk female; Horizon screen negative' AFP screen negative 6. GBS: Date: 7. FOB name: Singh Blackwood [facility] [birth year], 8. Plans A. Epidural or other pain management - B. Labor support identified - C. Tdap - Date:, 02/25/2024 Flu - Date: D. Breast or Bottle feed: E. Baby's name - F. Circumcision - 9. Hospital Course: Hypothyroid 02/27/2015 05/18/2024 Overview (05/18/2024): Pt noncompliant with adult medicine and mgmt of thyroid. Labs drawn today at metalizing supervisor Lab Results Component Value Date TSH 6.03 [...] Encounters Date Type Department Care Team Description 05/22/2025 Telephone Adult Medicine [address] [address] Rosi Coelho MD 05/09/2025 Telephone Adult Medicine [address] [address] Rosi Coelho MD from Last 3 Months Immunizations Immunization Administration Dates Next Due Hepatitis B (Yxvfhgm-C-Axdhl , Recombivax HB-Adult) 19yo and older 08/12/2011,06/17/2011 [...] for det ection of COVID-19 virus; COMMENT: [facility] ED 02/21/21 Type 2 diabetes [...] Supervision of high-risk 10/22/2023 1. [facility] site: [address]) 2. Delivery site: [facility] 3. Mobile Mommas: 4. Dating criteria: [...] for your loved ones. For example, child protective services social worker or elderly care for an older [...] 3 3 Date Outcome GA Total Labor Labor//3rd Weight Sex Type Anes PTL Suze A1 A5 Name Clin 2001 36w 1d 2240 g (79 oz) M Vag-S pont Epidur al Y Livin g 8 9 [facility] Delivery Location:[facility] Comments:admitted for ROM, pt recieved terb to stop labor x 3 since 32 weeks 2004 36w 5d F Vag-S pont None N Livin g Abeba segovia md Complications:Pre-eclampsia, Carrier of group B Streptococcus Delivery Location:[facility] Comments:IOL d/t Pre-E 2023 Term 39w 6d 0h 01m 0h 01m 3670 g (129.5 oz) F CS-LT ranv N Livin g 8 9 Kash Meena aguilar MD Complications: Intolera nce Delivery Location:[facility] Last Filed Vital Signs [...] Care Team (Late st Contact Info) Description 06/22/2025 1:15 PM EST Office Visit Adult Medicine [address] [phone] Fany Farooq PA [address] [place] [address] 08/03/2025 8:30 AM EST Consult Bariatric Surgery - [place] [address] [place] [address] Caitlyn Rodriguez MD [address] [place] [phone] 08/09/2025 5:00 PM EST Office Visit Adult Medicine [address] [phone] Fany Farooq PA [address] [place] [address] Health Maintenance Due Date Last Done Comments [...] LAB CHEMISTRY METHOD 09/07/2024 4:04 PM EST [facility] Triglycerides 54 0 - 150 mg/dL LAB CHEMISTRY METHOD 09/07/2024 4:04 PM EST [facility] HDL 69 >=40 mg/dL LAB CHEMISTRY METHOD 09/07/2024 4:04 PM EST [facility] LDL Calculated 94 0 - 100 mg/dL LAB CHEMISTRY METHOD 09/07/2024 4:04 PM EST [facility] VLDL Cholesterol Dannie 10.8 mg/dL LAB CHEMISTRY METHOD 09/07/2024 4:04 PM [facility] Non HDL Chol. (LDL+VLDL) 105 <145 mg/dL LAB CHEMISTRY METHOD 09/07/2024 4:04 PM [facility] Chol/HDL Ratio 2.5 0.0 - 4.4 LAB CHEMISTRY METHOD 09/07/2024 4:04 PM [facility] Blood Venous blood specimen / Unknown Venipuncture / Unknown 09/07/2024 11:35 AM EST 09/07/2024 11:35 AM EST Rosi Coelho MD LAB BLOOD ORDERA BLES Final Result [facility] [address] [place] [address], [place] [phone] * Cervical Cancer Screening: HPV (11/05/2023) [facility] Cervical Cancer Screening: HPV NEGATIVE, ABSTRACTED Historical Jude [facility] HEALTH MAINTENANCE Final Result * Depression Screening (10/22/2023) [facility] Depression Screening ABSTRACTED Historical Provider HEALTH MAINTENANCE Final Result * Hepatitis C Screening (10/22/2023) [facility] Hepatitis C Screening ABSTRACTED Historical Provider HEALTH MAINTENANCE Final Result from Last 3 Months or Most Recently Relevant to Health Maintenance Insurance [facility] PL[facility] Advance Directives * Full [...] currently active code status orders. Care Teams Color Paste Mixing Supervisor Relationship Specialty Start Date End Date Rosi Coelho MD [address] [place], [place] PCP - General Internal Medicine 02/04/22
--- OUTSIDE RECORDS SUMMARY | 2025-06-15 12:17 | XMS_ITS | Encounter Summary ---
Author Organization [facility] Prior to 05/13/2024 Address [address] [place] [address] Care Team Providers Care Automation Test Developer Name Role Phone Rosi Coelho MD Primary Care Provider + Encounter Details Date Type Department Care Team Description 02/05/2024 Telephone OBGYN - [place] [address] [place] [address] Mabel Craig, EZIOM [address] [place] [address] Social History Tobacco Use Types [...] on filedocumented in this encounter Care Teams Automation Test Developer Relationship Specialty Start Date End Date Rosi Coelho MD [address] [place] [phone] PCP - General Internal Medicine 02/04/22 documented as of this encounter
--- OUTSIDE RECORDS SUMMARY | 2025-06-15 12:17 | XMS_ITS | Encounter Summary ---
Author Organization [facility] Prior to 05/13/2024 Address [address] [place] [address] Care Team Providers Care Long Winder Tender Name Role Phone Rosi Coelho MD Primary Care Provider + Encounter Details Date Type Department Care Team Description 02/14/2024 Residence Leasing Agent Report Medical Records [address] [place] [address] Abstract, Provider Social History Tobacco Use Types [...] on filedocumented in this encounter Care Teams Long Winder Tender Relationship Specialty Start Date End Date Rosi Coelho MD [address] [place] [address] PCP - General Internal Medicine 02/04/22 documented as of this encounter
--- OUTSIDE RECORDS SUMMARY | 2025-06-15 12:17 | XMS_ITS | Encounter Summary ---
Author Organization [facility] Prior to 05/13/2024 Address [address] [place] [address] Care Team Providers Care Wireless Retail Manager Name Role Phone Rosi Coelho MD Primary Care Provider + Encounter Details Date Type Department Care Team Description 04/26/2024 Pt. Non Urgent Medical Question OBGYN - [address] [facility] [address] [place] [address] Mabel Craig, [facility] [address] [place] [address] Social History Tobacco Use Types [...] on filedocumented in this encounter Care Teams Wireless Retail Manager Relationship Specialty Start Date End Date Rosi Coelho MD [address] [place] [address] PCP - General Internal Medicine 02/04/22 documented as of this encounter
--- OUTSIDE RECORDS SUMMARY | 2025-06-15 12:17 | XMS_ITS | Encounter Summary ---
Author Organization [facility] Prior to 05/13/2024 Address [address] [place] [address] Care Team Providers Care Cardiovascular Sonographer Name Role Phone Cory Rubalcava MD Unavailable Unavailable Rosi Coelho MD Primary Care Provider + Encounter Details Date Type Department Care Team Description 06/28/2020 Refill Adult Medicine [address] [address] Aidee Edwards PA [address] [place] [phone] Social History Tobacco Use Types Packs/Day Years [...] on filedocumented in this encounter Care Teams Cardiovascular Sonographer Relationship Specialty Start Date End Date Rosi Coelho MD [address] [place] [phone] PCP - General Internal Medicine 02/04/22 Cory Rubalcava MD Internal Medicine 04/28/19 02/03/22 documented as of this encounter
--- OUTSIDE RECORDS SUMMARY | 2025-06-15 12:17 | XMS_ITS | Encounter Summary ---
Author Organization [facility] Prior to 05/13/2024 Address [address] [place] [address] Care Team Providers Care Video Game Producer Name Role Phone Cory Rubalcava MD Primary Care Provider Cory Oliva MD Unavailable Unavailable Rosi Coelho MD Primary Care Provider + Encounter Details Date Type Department Care Team Description 04/12/2019 Telephone General Surgery [facility] [address] [facility] [address] [place] [address] Caitlyn Rodriguez MD [address] [place] [address] DR[address] [place] [address] Social History Tobacco Use Types Packs/Day Years [...] Miscellaneous Notes * Telephone Encounter - Jessika Elias - 04/12/2019 8:30 AM EDT Please order bariatric labs for this patient. documented in this encounter Plan of Treatment Not on file documented as of this encounter Visit Diagnoses Not on filedocumented in this encounter Care Teams Video Game Producer Relationship Specialty Start Date End Date Cory Rubalcava MD PCP - General Internal Medicine 02/27/15 04/27/19 Rosi Coelho MD [address] [place] [phone] PCP - General Internal Medicine 02/04/22 Cory Rubalcava MD Internal Medicine 04/28/19 02/03/22 documented as of this encounter
--- OUTSIDE RECORDS SUMMARY | 2025-06-15 12:17 | XMS_ITS | Clinical Summary ---
Author Organization [employer] [facility] Prior to 05/13/2024 Address [address] [place] [address] Care Team Providers Care Government Affairs Fellow Name Role Phone Rosi Coelho MD Primary Care Provider + Allergies No known active allergies Medications Medication Sig Dispensed Refills Start Date End Date Status Vit-Fe Fumarate-FA ( Vitamins) 28-0.8 MG Tab Take 1 Tablet by mouth daily. 90 Tablet 3 09/23/2023 Active aspirin 81 MG chewable tablet Take 2 Tablets by mouth daily for 360 days. 60 Tablet 11 10/22/2023 Active triamcinolone (KENALOG) 0.025 % cream Apply to affected area 3-4x/day prn for irritation 30 g 0 11/27/2023 Active Ferrous Sulfate (Iron) 325 (65 Fe) MG Tab Take 1 Tablet by mouth 2 times daily (before meals). 60 Tablet 4 02/25/2024 Active levothyroxine (SYNTHROID, LEVOTHROID) 50 MCG tablet Take 1 Tablet by mouth daily. 90 Tablet 0 03/18/2024 Active Active Problems Problem Noted Date Elevated glucose tolerance test 05/10/20 Overview: Preg @ 38w5d, one hr gtt 144 GBS (group B Streptococcus carrier), +RV culture, currently 04/16/2024 Overview: No Known Allergies Rx PCN in la Anemia, antepartum, third trimester 02/10 Overview: Lab Results Component Value Date HGB 9.6 02/25/2024 HGB 12.4 10/22/2023 02/25/2024 start iron bid Last Assessment & Plan: Cont iron bid and repeat h/h, late 3rd trimester E. coli UTI 10/24/2023 Overview: Repeat UC 02/25/2024 ____ persistnet UTI, cont abx prophylaxis Last Assessment & Plan: Completed abx, Repeat UC today Maternal obesity, antepartum 10/22/2023 Overview: BMI 37.76 - hx gastric sleeve 2019. [...] BMI of 50 by 28wks transfer to [facility] DVT prophylaxis- Lovenox if CS and BMI >35 AMA (advanced maternal age) multigravida 35+ 10/22/2023 Overview: ASA 162 mg daily at 12w through delivery Referral for NIPT if desired Detailed US 3rd trimester growth US if maternal age 40 or greater Weekly NST at 36 weeks Offer delivery at 39 weeks if maternal age 40 or greater History of delivery, currently p regnant 10/22/2023 Overview: 2001 pt was given terbutaline x3 for labor. She had PPROM at 36w1d . MFM consult:11-11-23 at nuchal u/s Screening for risk of with vaginal ultrasounds to assess cervical length beginning at 16 weeks through 24 weeks if cervix shortens less than 2.5cm patient is candidate for cerclage and vaginal progesterone Hx of preeclampsia, prior , cur rently 10/22/2023 Overview: 2004 pt was induced for preeclampsia 36w5d [...] growth is adequate @ 72%tile on 03/29 Supervision of high-risk 10/21 Overview: 1. [facility] site: [address]) 2. Delivery site: [facility] 3. Mobile Mommas: 4. Dating criteria: 1st trimester ultrasound only 5. Blood type: Lab Results Component Value Date BLDTYPE O POSITIVE 10/22/2023 6. Genetic screening: Date: Result: Low risk female; Horizon screen negative' AFP screen negative 6. GBS: Date: 7. FOB name: Singh Blackwood [facility] [birth year], 8. Plans A. Epidural or other pain management - B. Labor support identified - C. Tdap - Date:, 02/25/2024 Flu - Date: D. Breast or Bottle feed: E. Baby's name - F. Circumcision - 9. Hospital Course: Hypothyroid 02/27/2015 Overview: Pt noncompliant with adult medicine and mgmt of thyroid. Labs drawn today at continuous still operator Lab Results Component Value Date TSH [...] is archana for endocrine appt in 04/2024 Resolved Problems Problem Noted Date Resolved Date COVID 19 POSITIVE 02/28/2021 09/23/2023 Overview: [facility] ED 02/21/21 Recurrent major depressive disorder, in partial remission 07/05/2020 10/22/2023 Bariatric surgery status 01/30/2020 024 Family history of ovarian cancer 04/26/2019 10/22/2023 Family history of breast cancer in female 201810/22/2023 H. pylori infection 04/21/2019 09/23/2023 Vitamin D deficiency 04/21/2019 10/22/2023 TSH elevation 04/21/2019 01/20/2020 Obesity, Class II, BMI 35-39.9 04/05/2019 0 10/22/2023 CTS (carpal tunnel syndrome) 03/08/2015 Overview: bilateral Morbid obesity 03/08/2015 01/20/2020 Type 2 diabetes mellitus wit h neurological manifestations, uncontrolled 02/27/2015 09/23/2023 Hyperlipidemia LDL goal < 100 02/27/2015 Overview: IMO update Goiter 02/27/2015 10/22/2023 HTN (hypertension), benign 02/27/201509/22 Immunizations Name Administration Dates Next Due Hepatitis B > 19yrs 08/12/2011,06/17/2011 Influenza (> 6 Months) 04/14/2024,04/27/201209/2024 Influenza Vaccine-preservati ve Free-quadrivalent 4 Years 03/25/2018 Pneumoccoccal(Adult) Polysaccharide PPSV23 02/28 Tdap 02/25/2024,02/29/2016 Family History Medical History Relation Name Comments Diabetes Aunt maternal aunt Cancer of the Stomach Father Other Maternal Grandfather alzhemi ers CA Breast Maternal Grandmother bilater al masectomy passed at 63 Diabetes Mother hypertension CA Ovarian Other 1 mat cousin Other Other 2 autistm Hypertension Sister x4 Relation Name Status Comments Aunt Brother x1 Alive Father (Age 46) lung ca Maternal Grandfather Alive Maternal Grandmother Mother (Age 42) hiv/aids, Htn, diabetes Other 1 mat cousin Alive Other 2 Alive Paternal Grandfather Paternal Grandmother Sister x4 Alive Social History Tobacco Use Types Packs/Day Years Used Date Smoking Tobacco: Never Smokeless Tobacco: Never Tobacco Cessation:Counseling Given: Not Answered Alcohol Use Standard Drinks/Week Comments Not Currently [...] file Not on file Not on file Last Filed Vital Signs Vital Sign Reading Time Taken Comments Blood Pressure 117/64 05/09/2024 8:53 AM EDT Pulse 73 05/09/2024 8:53 AM EDT Temperature 36.7 C (98.1 F) 07/03/2020 3:06 PM EST Respiratory Rate 14 12/31/2023 9:09 AM EDT Oxygen Saturation 98% 07/03/2020 3:06 PM EST Inhaled Oxygen Concentration - - Weight 108 kg (238 lb) 05/09/2024 8:53 AM EDT Height 162.6 cm (5' 4 ) 12/31/2023 9:09 AM EDT Body Mass Index 40.85 12/31/2023 9:09 AM EDT Plan of Treatment Health Maintenance Due Date Last Done Comments Covid-19 Vaccine (#1) 06/19/1984 DIABETES: ANNUAL EYE EXAM 12/18/2001 DIABETES: ANNUAL FOOT EXAM 12/18/2001 DIABETES: ANNUAL URINE PROTE IN TEST (MICROALBUMIN) 12/18/2001 DIABETES/HEART DISEASE: YASMINE AL CHOLESTEROL (LDL) 04/21/2020 04/21/2019, 03/25/2018, 02/29/2016 BASELINE HEALTH EXAM 40-64 12/19/202307/03, 04/26/2019, 02/29/2016 MAMMOGRAM 2023 DIABETES: BLOOD SUGAR CONTRO L TEST (HGBA1C) 01/21/2024 10/22/2023, 04/21/2019, 10/12/2018, Additional history exists BMI CHECK/ADVISE 07/13/2024 11/05/2023, , 04/19/2020, Additional history exists DEPRESSION SCREENING/FOLLOWUP 07/13/2024, 07/03/2020 (Completed), 07/03/2020, Additional history exists SOCIAL NEEDS SCREENING 07/13/2024 07/03/2020 (Comple davida) INFLUENZA (#1) 2025 04/14/2024, 06/13 (Refused), 03/25/2018, Additional history exists CERVICAL CANCER SCREENING 11/04/2026 11/05/2023 DTAP/TDAP/TD (3 - Td or Tdap) 02/24/2034 02/25/2024, 02/29/2016 PNEUMOCOCCAL VACCINE FOR HIG H RISK PATIENTS (#2) 12/18/2048 02/29/2016 Care Teams Government Affairs Fellow Relationship Specialty Start Date End Date Rosi Coelho MD [address] [place] [id number] PCP - General Internal Medicine 02/04/22
--- OUTSIDE RECORDS SUMMARY | 2025-06-15 12:17 | XMS_ITS | Encounter Summary ---
Author Organization [facility] Prior to 05/13/2024 Address [address] [place] [address] Care Team Providers Care Manager Steel Name Role Phone Cory Rubalcava MD Primary Care Provider Cory Oliva MD Unavailable Unavailable Rosi Coelho MD Primary Care Provider + Encounter Details Date Type Department Care Team Description 03/01/2015 Release of Information Medical Records [address] [place] [address] Abstract, Provider Social History Tobacco Use Types [...] filedocumented in this encounter Care Teams Manager Steel Relationship Specialty Start Date End Date Cory Rubalcava MD PCP - General Internal Medicine 02/27/15 04/27/19 Rosi Coelho MD [address] [place] [id number] PCP - General Internal Medicine 02/04/22 Cory Rubalcava MD Internal Medicine 04/28/19 02/03/22 documented as of this encounter
--- OUTSIDE RECORDS SUMMARY | 2025-06-15 12:17 | XMS_ITS | Encounter Summary ---
Author Organization [facility] Prior to 05/13/2024 Address [address] [place] [address] Care Team Providers Care Timber Treating Tank Operator Name Role Phone Cory Rubalcava MD Unavailable Unavailable Rosi Coelho MD Primary Care Provider + Encounter Details Date Type Department Care Team Description 03/30/2020 Pt. Non Urgent Medic al Question Adult Medicine [address] [id number] Cory Rubalcava MD Social History Tobacco Use [...] on filedocumented in this encounter Care Teams Timber Treating Tank Operator Relationship Specialty Start Date End Date Rosi Coelho MD [address] [place] [id number] PCP - General Internal Medicine 02/04/22 Cory Rubalcava MD Internal Medicine 04/28/19 02/03/22 documented as of this encounter
--- OUTSIDE RECORDS SUMMARY | 2025-06-15 12:17 | XMS_ITS | Encounter Summary ---
Author Organization [facility] Prior to 05/13/2024 Address [address] [place] [address] Care Team Providers Care Painter Maintenance Name Role Phone Rosi Coelho MD Primary Care Provider + Encounter Details Date Type Department Care Team Description 05/09/2024 Pt. Non Urgent Medical Question OBGYN - [address] [facility] [address] [place] [address] Mabel Craig, [facility] [address] [place] [address] Social History Tobacco Use Types [...] on filedocumented in this encounter Care Teams Painter Maintenance Relationship Specialty Start Date End Date Rosi Coelho MD [address] [place] [id number] PCP - General Internal Medicine 02/04/22 documented as of this encounter
--- OUTSIDE RECORDS SUMMARY | 2025-06-15 12:17 | XMS_ITS | Encounter Summary ---
Author Organization [facility] Prior to 05/13/2024 Address [address] [place] [address] Care Team Providers Care Floor Covering Layer Name Role Phone Rosi Coelho MD Primary Care Provider + Encounter Details Date Type Department Care Team Description 04/14/2024 Pt. Non Urgent Medical Question OBGYN - [address] [facility] [address] [place] [address] Mabel Craig, [facility] [address] [place] [address] Social History Tobacco Use Types [...] filedocumented in this encounter Care Teams Floor Covering Layer Relationship Specialty Start Date End Date Rosi Coelho MD [address] [place] [id number] PCP - General Internal Medicine 02/04/22 documented as of this encounter
--- OUTSIDE RECORDS SUMMARY | 2025-06-15 12:17 | XMS_ITS | Encounter Summary ---
Author Organization [employer] [facility] Prior to 05/13/2024 Address [address] [place] [address] Care Team Providers Care Courseware Developer Name Role Phone Cory Rubalcaav MD Unavailable Unavailable Rosi Coelho MD Primary Care Provider + Reason for Visit * Reason Onset Date Comments TEST RESULTS 02/01/2020 Encounter Details Date Type Department Care Team Description 02/01/2020 Pt. Non Urgent Medic al Question Adult Medicine [address] [address] Cory Rubalcava MD Social History Tobacco Use [...] Miscellaneous Notes * Telephone Encounter - Jasmyn Gutierrze M.A. - 02/01/2020 4:13 PM EDTFrom: Katarina Rodriguez To: Cory Rubalcava MD Sent: 02/01/2020 4:11 PM EDT Subject: Question regarding OUTSIDE PATHOLOGY I have a question about OUTSIDE PATHOLOGY resulted on 01/16/20. documented in this encounter Plan of Treatment Not on file documented as of this encounter Visit Diagnoses Not on filedocumented in this encounter Care Teams Courseware Developer Relationship Specialty Start Date End Date Rosi Coelho MD [address] [place] [id number] PCP - General Internal Medicine 02/04/22 Cory Rubalcava MD Internal Medicine 04/28/19 02/03/22 documented as of this encounter
--- OUTSIDE RECORDS SUMMARY | 2025-06-15 12:17 | XMS_ITS | Clinical Summary ---
Author Organization [facility] Address [address] [address] Phone Care Team Providers Care Detasseler Name Role Phone Unavailable Primary Care Provider [...] It is not the complete legal health record.[facility]
== END 2025-06-15 10:13 | disposition home or self-care (01) ==
LOC: HO.US 10:12
PROVIDERS: PCP Physician Assistant; Visit Provider Surgery
DX: E66.01 Morbid (severe) obesity due to excess calories (principal); E03.9 Hypothyroidism, unspecified
CPT/HCPCS: 76700; 76981

== ENCOUNTER → 2025-06-15 10:15 | Outpatient (BNV) | payer OTHER, SELFPAY | PROVIDERS: PCP Physician Assistant; Visit Provider Radiology Diagnostic Radiology | DX: E66.01 Morbid (severe) obesity due to excess calories (principal); K76.0 Fatty (change of) liver, not elsewhere classified | CPT/HCPCS: 76700 ==